=== PATIENT | male | born 1940 | race Caucasian/White ===

== ENCOUNTER 2019-10-18 07:35 | Inpatient (IN) | payer MEDICARE, MEDICAID, SELFPAY ==
[2019-10-18] VITALS (17 sets, daily range): BP systolic 120–171; BP diastolic 62–103; PULSE 68–93; RESP 16–22; TEMP 36.2–37.1; O2SAT 94–100; BMI 25.8
--- NOTE | 2019-10-18 07:53 | ED_ITS ---
Documented by User: DARLINE Gautam 10/18/19 10:52 HPI - Male Genitourinary General: Chief complaint: Urogenital-Male Stated complaint: BLOOD IN URINE Time Seen by Provider: 10/18/19 07:44 History of Present Illness: HPI Narrative: Patient is a 79-year-old male who comes to the ED with blood in the urine. Past medical history of dementia and hypertension. Patient says it has been placed over 2 days since he has been able to urinate. He currently does not complain of any abdominal pain or discomfort. He tried to urinate here in the ED and about 5 ml of pure blood came out. Patient also has testicular swelling and pain that started about a month ago. Denies any fever, chills, nausea, vomiting, abdominal pain, diarrhea or constipation. Associated symptoms: Reports hematuria; Deny dysuria, nausea or vomiting Review of Systems Const: Denies: fever(s), chills or fatigue Eyes: Denies: change in vision or eye discomfort ENMT: Denies: throat pain, odynophagia, nasal discharge or nasal congestion Card: Denies: chest pain, palpitations, edema, swelling of feet/ankles, dysp miquel on exertion or orthopnea Resp: Denies: dyspnea, productive cough or non-productive cough GI: Denies: abdominal pain, nausea, vomiting, diarrhea, constipation or hematochezia : Reports: difficulty urinating, oliguria, hematuria, testicular pain, testicular mass and scrotal swelling; Denies: flank pain or dysuria Musc: Denies: neck pain, back pain or extremity swelling Skin/Breast: Denies: rash or new lesions Neuro: Denies: headache(s), numbness in extremities or weakness in extremities PFS ED PFSH: Medical History (Updated 10/20/19 @ 00:00 by ) Dementia History of bladder cancer History of hydronephrosis Hypertension Surgical History (Updated 10/19/19 @ 11:46 by Autumn Dixon DO) History of bladder surgery radical cystoprostatectomy with ileal neobladder performed at [facility] in 2003 History of open reduction and internal fixation (ORIF) procedure L tibia History of orchiectomy, unilateral Left, 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 Social History Smoking and tobacco status: former smoker Physical Exam Const: COMMON NORMALS: alert GENERAL APPEARANCE: cooperative HENMT: COMMON NORMALS: normocephalic HEAD & SCALP: normocephalic MOUTH: Normal oral and palatal mucosa present THROAT: posterior oropharynx normal and uvula midline Eye: COMMON NORMALS: Equal, round and reactive pupils present PUPIL: Yes Equal, round and reactive pupils present Neck/C-Spine: COMMON NORMALS: supple GENERAL: Yes normal visual inspection Resp: COMMON NORMALS: normal respiratory effort, No retractions, No use of accessory muscles and clear to auscultation bilaterally AUSCULTATION: clear to auscultation bilaterally Cardio: COMMON NORMALS: regular rate, regular rhythm, S1 normal heart sound present, S2 normal heart sound present, No gallops present (Cardio), No clicks present (Cardio), No murmurs present (Cardio) and Peripheral pulses 2+ throughout RATE: regular rate RHYTHM: regular rhythm HEART SOUNDS: S1 normal heart sound present and S2 normal heart sound present PERIPHERAL PULSES: Peripheral pulses 2+ throughout GI: COMMON NORMALS: Normal to inspection, nondistended, normoactive bowel sounds present, Soft to palpation, non-tender and no masses PALPATION: Yes Soft to palpation : COMMON NORMALS: Yes no CVA tenderness BLADDER/KIDNEY EXAM: Yes no CVA tenderness SCROTUM: Yes testes descended bilaterally and Yes other (Testes were enlarged, tender and firm bilaterally.) TESTES: Yes Enlarged testicle(s) present (bilateral), Yes testicular swelling Testicular swelling laterality: bilateral and Yes testicular tenderness Testicular tenderness laterality: bilateral Back/Pelvis: COMMON NORMALS: no CVA tenderness Extremity: COMMON NORMALS: normal to inspection and no pedal edema Neuro: COMMON NORMALS: moves all extremities SENSORIUM/ORIENTATION: Yes alert SPEECH: speech normal Skin: COMMON NORMALS: no rashes or lesions noted GENERAL SKIN EXAM: no rashes or lesions noted and dry skin Course Vital Signs: Vital signs: Vital Signs Temperature 97.8 F 10/19/19 15:36 Pulse Rate 58 L 10/19/19 15:36 Respiratory Rate 16 10/19/19 15:36 Blood Pressure 134/72 10/19/19 15:36 Pulse Oximetry 95 10/19/19 15:36 MDM - Male MDM Narrative: Medical decision making narrative: I spoke with Dr. Berny bedolla bout patient case and CT findings of a possible tumor in the bladder and ultrasound of the testes showing macerated left testicle. Dr. Arrieta will be taking over care of patient and getting patient admitted. Lab Data: Attestation: I reviewed the patient's lab results. Labs: Lab Results 10/18/19 10/18/19 10/18/19 Range/Units 07:52 07:58 07:58 WBC 15.8 H (4.0-10.0) 10^3/ uL RBC 5.64 H (4.1-5.3) 10^6/u L Hgb 15.6 (11.7-16.6) g/dL Hct 47.3 (42.0-52.0) % MCV 83.9 (80-94) fL MCH 27.7 L (28.0-34.0) pg MCHC 33.0 (30.0-36.0) g/dL RDW 12.8 (12.1-15.1) % Plt Count 473 H (130-400) 10^3/c mm MPV 9.0 (7.4-10.4) fL Neut % (Auto) 66.6 % Lymph % (Auto) 19.4 % Caldwell % (Auto) 9.2 % Eos % (Auto) 2.5 % Baso % (Auto) 0.7 % Neut # (Auto) 10.5 H (1.8-7.7) 10^3/u L Lymph # (Auto) 3.1 (0.8-4.8) 10^3/u L Caldwell # (Auto) 1.5 H (0.2-0.9) 10^3/u L Eos # (Auto) 0.4 (0.0-0.8) 10^3/u L Baso # (Auto) 0.1 (0.0-0.1) 10^3/u L Nucleated RBC % (a uto) 0 % Nucleated RBCs # 0.0 /100WBC Sodium 137 (136-145) mmol/L Potassium 4.4 (3.5-5.1) mmol/L Chloride 101 (98-107) mmol/L Carbon Dioxide 22 (22-29) mmol/L Anion Gap 18.4 (5-19) BUN 29 H (8-23) mg/dL Creatinine 1.8 H (0.7-1.2) mg/dL Glucose 107 (65-115) mg/dL Calculated Osmolal ity 282 L (285-295) mOsm/k g Lactate 1.4 (0.5-2.2) mmol/L Calcium 9.0 (8.5-10.5) mg/dL Total Bilirubin 0.3 (0.15-1.2) mg/dL AST 27 (0-40) U/L ALT 37 (0-41) U/L Alkaline Phosphata se 103 (40-130) IU/L Total Protein 7.2 (6.6-8.7) g/dL Albumin 3.7 (3.5-5.2) g/dL Globulin 3.5 (1.3-4.6) g/dL Blood Type Rho(D) Type Antibody Screen 10/18/19 Range/Units 10:08 WBC (4.0-10.0) 10^3/ uL RBC (4.1-5.3) 10^6/u L Hgb (11.7-16.6) g/dL Hct (42.0-52.0) % MCV (80-94) fL MCH (28.0-34.0) pg MCHC (30.0-36.0) g/dL RDW (12.1-15.1) % Plt Count (130-400) 10^3/c mm MPV (7.4-10.4) fL Neut % (Auto) % Lymph % (Auto) % Caldwell % (Auto) % Eos % (Auto) % Baso % (Auto) % Neut # (Auto) (1.8-7.7) 10^3/u L Lymph # (Auto) (0.8-4.8) 10^3/u L Caldwell # (Auto) (0.2-0.9) 10^3/u L Eos # (Auto) (0.0-0.8) 10^3/u L Baso # (Auto) (0.0-0.1) 10^3/u L Nucleated RBC % (a uto) % Nucleated RBCs # /100WBC Sodium (136-145) mmol/L Potassium (3.5-5.1) mmol/L Chloride (98-107) mmol/L Carbon Dioxide (22-29) mmol/L Anion Gap (5-19) BUN (8-23) mg/dL Creatinine (0.7-1.2) mg/dL Glucose (65-115) mg/dL Calculated Osmolal ity (285-295) mOsm/k g Lactate (0.5-2.2) mmol/L Calcium (8.5-10.5) mg/dL Total Bilirubin (0.15-1.2) mg/dL AST (0-40) U/L ALT (0-41) U/L Alkaline Phosphata se (40-130) IU/L Total Protein (6.6-8.7) g/dL Albumin (3.5-5.2) g/dL Globulin (1.3-4.6) g/dL Blood Type O Positive Rho(D) Type Positive Antibody Screen Negative Imaging Data: CT Abd/Pel: Attestation: I personally reviewed and interpreted this imaging study as follows: Radiologist's impression: [place] [address] CT Scan Report Signed Patient: Randall Bay Unit #: [id number] : 1940 Age/Sex: 79 / M ADM Date: 10/18/19 Loc: ER Room/Bed: Attending Dr: Ordering Provider/Ordering MD: Randall Preston Date of Service: 10/18/19 Procedure(s): CT kidney stone 54102 Accession Number(s): [id number] Report Number: [id number] WS: [id number] CT kidney stone 48311 REASON FOR EXAM: Hematuria IV CONTRAST ADMINISTERED: None. TOTAL EXAM DLP: 2277.[address] scans at [facility] use at least one of these dose optimization techniques: automated exposure control; mA and/or kV adjustment per patient size (includes targeted exams where dose is matched to clinical indication); or iterative reconstruction. FINDINGS: The liver again shows hypodense lesions similar to the previous exam and appear to be benign cysts. The pancreas is normal. There is a calcification in the pancreas noted. There is previous cholecystectomy. The stomach and spleen were normal as well as the adrenal glands. The aorta showed arteriosclerotic changes. The right kidney is dilated shows densities along the periphery with irregular contents and a cyst is seen in the superior pole. Weren't sure if the lesions in the kidney or bladder represents hemorrhage or mass effect. The left kidney again shows a small cyst .. A large cyst is seen along the inf erior pole of the right kidney measures 1.99 cm. The ureter on the right is dilated down to the bladder. The bladder shows a questionable mass defect in the midportion of the bladder. There is also densities in the bladder suggesting blood. The prostate appears to be surgically absent. The rectum was normal. A hydrocele is seen in the left testicle. Coronal images suggests a mass in the urinary bladder and a calcified stone in the right kidney. CT/CT kidney stone [id number] IMPRESSION: Suspect tumor the urinary bladder. Hydronephrosis of the right kidney Stone in the right kidney Prominent cyst of the right kidney Small cyst of the left kidney Dictated By: Sav Marmolejo DO Signed By: Sav Marmolejo DO Signed Date/Time: 10/18/19908 DD/ 8 US: Attestation: I personally reviewed and interpreted this imaging study as follows: Radiologist's impression: [address] [place] [address] Ultrasound Report Signed Patient: Randall Bay Unit #: [id number] : 1940 Age/Sex: 79 / M ADM Date: 10/18/19 Loc: ER Room/Bed: Attending Dr: Ordering Provider/Ordering MD: Randall Preston Date of Service: 10/18/19 Procedure(s): US scrotum 62952 Accession Number(s): [id number] Report Number: [id number] WS: [id number] SCROTAL ULTRASOUND REASON FOR EXAM: testicular swelling and pain COMPARISON: None available. TECHNIQUE: Grayscale and duplex color Doppler ultrasound examination of the scrotum. FINDINGS: RIGHT: Right testes measures 4.6 cm x 2.4 cm x 1.7 cm. Prominent hydrocele of the right testicle. Right epididymis measures 1.5 cm x 1.5 cm x 2.3 cm. Prominent epididymal cysts. A spermatocele is seen on the right. LEFT: Left testes measures 4.6 cm x 3.2 cm x 1.9 cm. Normal flow pattern left testicle. The left testicle appears to be macerated. This suggests hematoma and trauma abscess or neoplastic changes. A large hydrocele is seen associated. There appears to be complex most likely bloody. / scrotum [id number] IMPRESSION: Macerated left testicle most likely traumatic with large hydrocele. Hydrocele the right testicle Prominent right epididymal cysts. Spermatoceles on the right. Dictated By: Sav Marmolejo DO Signed By: Sav Marmolejo DO Signed Date/Time: 10/18/19922 DD/ 5 Discharge Plan Discharge Admit Provider: Autumn Dixon Clinical Impression: Testicular abnormality, Bladder mass Condition: Stable Discharge Orders: Discharge Order (Routine); Ordered 10/19/19 Ordered By: Autumn Dixon Discharge Diet: Advance as tolerated and Usual diet Discharge Activity: Increase activity as tolerated Discharge Date/Time: 10/18/19 14:15 Coding Level of Care Code ED Business Intelligence Manager for Chg Fwd Exam Comprehensive Documented by User: Jamal Arrieta DO 10/22/19 18:14 HPI - Male Genitourinary General: Chief complaint: Urogenital-Male Stated complaint: BLOOD IN URINE Time Seen by Provider: 10/18/19 07:44 PFSH ED PFSH: Medical History (Updated 10/20/19 @ 00:00 by ) Dementia History of bladder cancer History of hydronephrosis Hypertension Surgical History (Updated 10/19/19 @ 11:46 by Autumn Dixon DO) History of bladder surgery radical cystoprostatectomy with ileal neobladder performed at [facility] in 2003 History of open reduction and internal fixation (ORIF) procedure L tibia History of orchiectomy, unilateral Left, 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 Called and discussed with Dr. Dr. Cannon he is quite familiar with the patient he came to the ER and seen the patient and we are going to admit the patient and Dr. Cannon plans to take the patient to the operating room later for the macerated testicle. We did place a Salvador in the patient and irrigated aggressively to relieve the clot which was seen on the CT. Admission orders written Dr. Dixon from the hospitalist service to be attending Lab Data: Labs: Lab Results 10/18/19 10/18/19 10/18/19 Range/Units 07:52 07:58 07:58 WBC 15.8 H (4.0-10.0) 10^3/ uL RBC 5.64 H (4.1-5.3) 10^6/u L Hgb 15.6 (11.7-16.6) g/dL Hct 47.3 (42.0-52.0) % MCV 83.9 (80-94) fL MCH 27.7 L (28.0-34.0) pg MCHC 33.0 (30.0-36.0) g/dL RDW 12.8 (12.1-15.1) % Plt Count 473 H (130-400) 10^3/c mm MPV 9.0 (7.4-10.4) fL Neut % (Auto) 66.6 % Lymph % (Auto) 19.4 % Caldwell % (Auto) 9.2 % Eos % (Auto) 2.5 % Baso % (Auto) 0.7 % Neut # (Auto) 10.5 H (1.8-7.7) 10^3/u L Lymph # (Auto) 3.1 (0.8-4.8) 10^3/u L Caldwell # (Auto) 1.5 H (0.2-0.9) 10^3/u L Eos # (Auto) 0.4 (0.0-0.8) 10^3/u L Baso # (Auto) 0.1 (0.0-0.1) 10^3/u L Nucleated RBC % (a uto) 0 % Nucleated RBCs # 0.0 /100WBC Sodium 137 (136-145) mmol/L Potassium 4.4 (3.5-5.1) mmol/L Chloride 101 (98-107) mmol/L Carbon Dioxide 22 (22-29) mmol/L Anion Gap 18.4 (5-19) BUN 29 H (8-23) mg/dL Creatinine 1.8 H (0.7-1.2) mg/dL Glucose 107 (65-115) mg/dL Calculated Osmolal ity 282 L (285-295) mOsm/k g Lactate 1.4 (0.5-2.2) mmol/L Calcium 9.0 (8.5-10.5) mg/dL Total Bilirubin 0.3 (0.15-1.2) mg/dL AST 27 (0-40) U/L ALT 37 (0-41) U/L Alkaline Phosphata se 103 (40-130) IU/L Total Protein 7.2 (6.6-8.7) g/dL Albumin 3.7 (3.5-5.2) g/dL Globulin 3.5 (1.3-4.6) g/dL Blood Type Rho(D) Type Antibody Screen 10/18/19 Range/Units 10:08 WBC (4.0-10.0) 10^3/ uL RBC (4.1-5.3) 10^6/u L Hgb (11.7-16.6) g/dL Hct (42.0-52.0) % MCV (80-94) fL MCH (28.0-34.0) pg MCHC (30.0-36.0) g/dL RDW (12.1-15.1) % Plt Count (130-400) 10^3/c mm MPV (7.4-10.4) fL Neut % (Auto) % Lymph % (Auto) % Caldwell % (Auto) % Eos % (Auto) % Baso % (Auto) % Neut # (Auto) (1.8-7.7) 10^3/u L Lymph # (Auto) (0.8-4.8) 10^3/u L Caldwell # (Auto) (0.2-0.9) 10^3/u L Eos # (Auto) (0.0-0.8) 10^3/u L Baso # (Auto) (0.0-0.1) 10^3/u L Nucleated RBC % (a uto) % Nucleated RBCs # /100WBC Sodium (136-145) mmol/L Potassium (3.5-5.1) mmol/L Chloride (98-107) mmol/L Carbon Dioxide (22-29) mmol/L Anion Gap (5-19) BUN (8-23) mg/dL Creatinine (0.7-1.2) mg/dL Glucose (65-115) mg/dL Calculated Osmolal ity (285-295) mOsm/k g Lactate (0.5-2.2) mmol/L Calcium (8.5-10.5) mg/dL Total Bilirubin (0.15-1.2) mg/dL AST (0-40) U/L ALT (0-41) U/L Alkaline Phosphata se (40-130) IU/L Total Protein (6.6-8.7) g/dL Albumin (3.5-5.2) g/dL Globulin (1.3-4.6) g/dL Blood Type O Positive Rho(D) Type Positive Antibody Screen Negative Discharge Plan Discharge Admit Provider: Autumn Dixon Clinical Impression: Testicular abnormality, Bladder mass Condition: Stable Discharge Orders: Discharge Order (Routine); Ordered 10/19/19 Ordered By: Autumn Dixon Discharge Diet: Advance as tolerated and Usual diet Discharge Activity: Increase activity as tolerated Discharge Date/Time: 10/18/19 14:15 Coding Level of Care Code ED Business Intelligence Manager for Chg Fwd Exam Comprehensive
[2019-10-18 08:06] LABS: Basophils # 0.1 10^3/uL (0.0-0.1); Basophils % 0.7 %; Eosinophils # 0.4 10^3/uL (0.0-0.8); Eosinophils % 2.5 %; Hematocrit 47.3 % (42.0-52.0); Hemoglobin 15.6 g/dL (11.7-16.6); Lymphocytes # 3.1 10^3/uL (0.8-4.8); Lymphocytes % 19.4 %; Mean Corpuscular Hemoglobin 27.7 pg (28.0-34.0); Mean Corpuscular Volume 83.9 fL (80-94); Monocytes # 1.5 10^3/uL (0.2-0.9); Monocytes % 9.2 %; Neutrophils # 10.5 10^3/uL (1.8-7.7); Neutrophils % 66.6 %; Nucleated Red Blood Cells % 0 %; Platelet Count 473 10^3/cmm (130-400); Red Blood Count 5.64 10^6/uL (4.1-5.3); Red Cell Distribution Width 12.8 % (12.1-15.1); White Blood Count 15.8 10^3/uL (4.0-10.0)
--- NOTE | 2019-10-18 08:15 | US_ITS ---
WS: [id number] SCROTAL ULTRASOUND REASON FOR EXAM: testicular swelling and pain COMPARISON: None available. TECHNIQUE: Grayscale and duplex color Doppler ultrasound examination of the scrotum. FINDINGS: RIGHT: Right testes measures 4.6 cm x 2.4 cm x 1.7 cm. Prominent hydrocele of the right testicle. Right epididymis measures 1.5 cm x 1.5 cm x 2.3 cm. Prominent epididymal cysts. A spermatocele is seen on the right. LEFT: Left testes measures 4.6 cm x 3.2 cm x 1.9 cm. Normal flow pattern left testicle. The left testicle a ppears to be macerated. This suggests hematoma and trauma abscess or neoplastic changes. A large hydr ocele is seen associated. There appears to be complex most likely bloody. US/US scrotum [id number] IMPRESSION: Macerated left testicle most likely traumatic with large hydrocele. Hydrocele the right testicle Prominent right epididymal cysts. Spermatoceles on the right.
[2019-10-18 08:23] LABS: Alanine Aminotransferase 37 U/L (0-41); Albumin Level 3.7 g/dL (3.5-5.2); Alkaline Phosphatase 103 IU/L (40-130); Anion Gap 18.4 (5-19); Aspartate Amino Transferase 27 U/L (0-40); Blood Urea Nitrogen 29 mg/dL (8-23); Carbon Dioxide 22 mmol/L (22-29); Chloride 101 mmol/L (98-107); Globulin 3.5 g/dL (1.3-4.6); Glucose 107 mg/dL (65-115); Osmolality Calculated 282 mOsm/kg (285-295); Potassium 4.4 mmol/L (3.5-5.1); Sodium 137 mmol/L (136-145); Total Bilirubin 0.3 mg/dL (0.15-1.2); Total Protein 7.2 g/dL (6.6-8.7)
--- NOTE | 2019-10-18 08:33 | CT_ITS ---
WS: [id number] CT kidney stone [id number] REASON FOR EXAM: Hematuria IV CONTRAST ADMINISTERED: None. TOTAL EXAM DLP: 2277.[address] scans at [facility] use at least one of these dose optimization techniques: automat ed exposure control; mA and/or kV adjustment per patient size (includes targeted exams where dose is matched to clinical indication); or iterative reconstruction. FINDINGS: The liver again shows hypodense lesions similar to the previous exam and appear to be benig n cysts. The pancreas is normal. There is a calcification in the pancreas noted. There is previous cholecystectomy. The stomach and spleen were normal as well as the adrenal glands. The aorta showed arteriosclerotic changes. The right kidney is dilated shows densities along the periphery with irregular contents and a cyst is seen in the superior pole. Weren't sure if the lesions in the kidney or bladder represents hemorrhag e or mass effect. The left kidney again shows a small cyst .. A large cyst is seen along the inferior pole of the right kidney measures 1.99 cm. The ureter on the right is dilated down to the bladder. The bladder shows a questionable mass defect in the midportion of the bladder. There is also densities in the bladder suggesting blood. The prostate appears to be surgically absent. The rectum was normal. A hydrocele is seen in the left testicle. Coronal images suggests a mass in the urinary bladder and a calcified stone in the right kidney. CT/CT kidney stone [id number] IMPRESSION: Suspect tumor the urinary bladder. Hydronephrosis of the right kidney Stone in the right kidney Prominent cyst of the right kidney Small cyst of the left kidney
--- NOTE | 2019-10-18 09:24 | PC.NURSE ---
US COMPLETED PATIENT TOLERATED WELL
[2019-10-18] MEDS: sodium chloride 0.9% 500 ML IV (09:32)
[2019-10-18] MEDS: morphine 4 mg/mL SDV 1 mL 2 MG IVP (09:42)
[2019-10-18] MEDS: ondansetron 2 mg/ML SDV 2 mL 4 MG IVP (09:43)
[2019-10-18] MEDS: piperacillin-tazobactam 3.375 GM in sodium chloride 0.9% (plus) 50 ML IV ×2 (10:01→16:30)
[2019-10-18 10:10] LABS: Lactate (Lactic Acid level) 1.4 mmol/L (0.5-2.2)
[2019-10-18] MEDS: LORazepam 2 mg/mL INJ 1 mL 0.5 MG IVP (11:29)
--- NOTE | 2019-10-18 11:32 | P.HP_ITS ---
Providers/Chief Complaint Admitting Physician: Autumn Dixon DO Chief Complaint: BLOOD IN URINE History of Present Illness Randall Bay is a 79 year old male with a past medical history of bladder cancer and Alzheimer's dementia that presented to the emergency department for hematuria. Patient is a long-term correction resident at [facility]. He was recently started on Bactrim twice daily on 10/15/2019 due to concern for urinary tract infection. He has been experiencing scrotal edema for a period of time, yesterday and continuing into this morning patient was noted to have significant hematuria. Brought into the ER for further evaluation and treatment. Difficult to obtain full HPI from patient due to his underlying dementia. Patient denies any chest pain, no cough or shortness of breath, no nausea or vomiting. Reports abdominal pain, scrotal pain and hematuria. Patient was seen and evaluated in the emergency department noted to have scrotal edema and significant hematuria. Urology was consulted for further evaluation and patient was kept n.p.o. Review of Systems Const: Denies: fever(s) or chills Eyes: Denies: change in vision ENMT: Denies: nasal congestion Card: Denies: chest pain, palpitations or edema Resp: Denies: dyspnea, productive cough or hemoptysis GI: Denies: abdominal pain, nausea, vomiting, diarrhea, constipation, hematochezia or melena : Reports: difficulty urinating, dysuria, hematuria and scrotal swelling Musc: Denies: extremity pain or muscle cramps Skin/Breast: Denies: rash or new lesions Neuro: Denies: headache(s) or dizziness Psych: Denies: anxiety or depression Endo: Denies: hot flashes Chuckie/Lymph: Reports: easy bleeding; Denies: easy bruising Medications/Allergies Home Medications Medication Instructions Recorded Confirmed Last Taken Type acetaminophen See Rx Instructions .ROUTE .COMPLEX 10/18/19 10/18/19 10/18/19 02:45 History 650 mg aspirin [Aspir-81] 81 mg PO DAILY 10/18/19 10/18/19 10/18/19 07:01 History donepezil 10 mg PO BEDTIME 10/18/19 10/18/19 10/17/19 History furosemide [Lasix] 20 mg PO DAILY 10/18/19 10/18/19 10/18/19 07:01 History memantine 10 mg PO BID 10/18/19 10/18/19 10/18/19 07:01 History metoprolol tartrate 12.5 mg PO BID 10/18/19 10/18/19 10/18/19 07:01 History sulfamethoxazole-trimethoprim 1 tab PO BID 10/18/19 10/18/19 10/18/19 07:01 History [Bactrim DS] trazodone 50 mg PO BEDTIME 10/18/19 10/18/19 10/17/19 History Allergies Allergy/AdvReac Type Severity Reaction Status Date / Time No Known Allergies Allergy Verified 10/18/19 07:50 PFSH Acute PFSH: Medical History Dementia History of bladder cancer History of hydronephrosis Hypertension Surgical History History of bladder surgery From prior documentation from 2013 reported history of bladder removal and reconstruction History of open reduction and internal fixation (ORIF) procedure L tibia Social History Smoking and tobacco status: former smoker Supplemental PFSH Information: unable to obtain from patient due to underlying dementia Vitals/I&O/Wt Last Vital Signs Temp 98.2 F 10/18/19 07:42 Pulse 72 10/18/19 07:42 Resp 18 10/18/19 09:42 BP 139/103 10/18/19 07:42 Pulse Ox 97 10/18/19 07:42 Weight last 48 hrs Weight 77.111 kg Physical Exam Const: COMMON NORMALS: alert ORIENTATION/CONSCIOUSNESS: Yes awake OTHER: underlying dementia, in obvious discomfort HENMT: COMMON NORMALS: normocephalic and atraumatic HEAD & SCALP: normocephalic and atraumatic Eye: COMMON NORMALS: Equal, round and reactive pupils present PUPIL: Yes Equal, round and reactive pupils present Neck/C-Spine: COMMON NORMALS: supple GENERAL: Yes normal visual inspection Resp: COMMON NORMALS: normal respiratory effort and clear to auscultation bilaterally EFFORT & INSPECTION: Yes able to speak in complete sentences AUSCULTATION: clear to auscultation bilaterally, no rhonchi and no wheezes Cardio: COMMON NORMALS: regular rate, regular rhythm and No murmurs present (Cardio) RATE: regular rate RHYTHM: regular rhythm GI: COMMON NORMALS: Soft to palpation INSPECTION: No abdominal distension AUSCULTATION: Yes normoactive bowel sounds PALPATION: Yes Tenderness to palpation present (GI) (suprapubic tenderness) : COMMON NORMALS: Yes no CVA tenderness BLADDER/KIDNEY EXAM: Yes no CVA tenderness OTHER: Active bleeding from urethra, scrotal edema and mass in the L scrotum, limited exam due to patient experiencing pain Extremity: COMMON NORMALS: no clubbing, cyanosis or edema and no calf tenderness Neuro: COMMON NORMALS: CN's II-XII intact bilaterally, moves all extremities and no focal motor deficits SENSORIUM/ORIENTATION: Yes alert SPEECH: speech normal OTHER: underlying confusion secondary to dementia Psych: OTHER: underlying confusion due to dementia Skin: OTHER: Scrotal edema and maceration left greater than right Data : 10/18/19 07:58 10/18/19 07:58 Micro: Microbiology 10/18/19 07:58 Blood Culture - Preliminary Blood SPECIMEN COLLECTED 10/18/19 07:52 Blood Culture - Preliminary Blood SPECIMEN COLLECTED US: I personally reviewed and interpreted this imaging study as follows: Radiologist's impression: Scrotal ultrasound: FINDINGS: RIGHT: Right testes measures 4.6 cm x 2.4 cm x 1.7 cm. Prominent hydrocele of the right testicle. Right epididymis measures 1.5 cm x 1.5 cm x 2.3 cm. Prominent epididymal cysts. A spermatocele is seen on the right. LEFT: Left testes measures 4.6 cm x 3.2 cm x 1.9 cm. Normal flow pattern left sue ticle. The left testicle appears to be macerated. This suggests hematoma and trauma abscess or neoplastic changes. A large hydrocele is seen associated. There appears to be complex most likely bloody. US/US scrotum [id number] IMPRESSION: Macerated left testicle most likely traumatic with large hydrocele. Hydrocele the right testicle Prominent right epididymal cysts. Spermatoceles on the right. Other CT: I personally reviewed and interpreted this imaging study as follows: Radiologist's impression: CT Kidney Stone: FINDINGS: The liver again shows hypodense lesions similar to the previous exam and appear to be benign cysts. The pancreas is normal. There is a calcification in the pancreas noted. There is previous cholecystectomy. The stomach and spleen were normal as well as the adrenal glands. The aorta showed arteriosclerotic changes. The right kidney is dilated shows densities along the periphery with irregular contents and a cyst is seen in the superior pole. Weren't sure if the lesions in the kidney or bladder represents hemorrhage or mass effect. The left kidney again shows a small cyst .. A large cyst is seen along the inferior pole of the right kidney measures 1.99 cm. The ureter on the right is dilated down to the bladder. The bladder shows a questionable mass defect in the midportion of the bladder. There is also densities in the bladder suggesting blood. The prostate appears to be surgically absent. The rectum was normal. A hydrocele is seen in the left testicle. Coronal images suggests a mass in the urinary bladder and a calcified stone in the right kidney. CT/CT kidney stone [id number] IMPRESSION: Suspect tumor the urinary bladder. Hydronephrosis of the right kidney Stone in the right kidney Prominent cyst of the right kidney Small cyst of the left kidney A&P Assessment and plan (1) Gross hematuria: Gross hematuria with concern for mass in the bladder. Patient has a history of bladder cancer with bladder reconstruction in the past. Dr. Cannon, urologist consulted. Will follow up with recommendations. Will appreciate assistance in patient's care. Patient to remain n.p.o. for the possibility of surgical intervention today for this and testicular lesion Salvador catheter placed shortly after my evaluation in the emergency department with reported immediate void of 800mL of urine Hold aspirin Patient has had a significant amount of bleeding while in the emergency department. Will check serial H&H every 6 hours, type and screen performed in the ED. Transfuse if indicated Status: Acute (2) Testicular abnormality: Patient does have some maceration to the left testicle, limited exam due to patient's pain and underlying confusion with his dementia CT imaging shows suspected tumor of the urinary bladder as well as US changes to the L testicle as reported above. No reported trauma, [facility] reports scrotal edema has been present for an extended period of time. Concern for lesion of the left testicle, Dr. Cannon to take patient to the OR today Covered with broad spectrum antibiotics in the ED, Vanc and Zosyn, will continue at this time pending urology evaluation Status: Acute (3) Bladder mass: Patient has bladder mass identified on CT scan. Patient does have a history of bladder cancer with a history of bladder revision many years ago. Follow-up with urology recommendations Status: Acute (4) History of bladder cancer: With finding of bladder mass reports the patient had surgery approximately 17 years ago Status: Acute (5) UTI (urinary tract infection): Previously diagnosed with UTI at the half-way [facility] and started on Bactrim on 10/15/2019. Continue with IV antibiotics for empiric treatment as noted above. Will discuss with correction to determine if the urine culture was performed at that time Status: Acute (6) Dementia: Patient is somewhat confused in the emergency department, however remains communicative. Status: Acute (7) Hypertension: Currently on Lasix 20 mg daily, metoprolol 12.5 mg twice daily Status: Acute Additional A&P Information Right-sided hydronephrosis: Appreciate urology recommendations and assistance in patient's care. Continue to monitor renal function closely Patient appears to be dehydrated, will give very gentle IV fluids with close monitoring of intake and output and renal function. DVT prophylaxis: SCDs, no pharmacologic prophylaxis due to concern for significant hematuria Diet: N.p.o. for anticipated surgery CODE STATUS: DNR/DNI, this is documented on correction paperwork and verbally confirmed with patient's spouse Renetta Bay on 10/18/19 Attestations Medical Necessity Statement*: Patient requires hospitalization due to gross hematuria with bladder mass and scrotal edema and L scrotal swelling. Expected stay greater than 2 midnights Coding Level of Care Code Acute Want Ad Clerk for Chg Fwd Exam Comprehensive Diagnoses Gross hematuria R31.0 Testicular abnormality N50.9 Bladder mass N32.89 History of bladder cancer Z85.51 UTI (urinary tract infection) N39.0 Dementia F03.90 Hypertension I10
--- NOTE | 2019-10-18 12:52 | PC.NURSE ---
2 HOURS OF MANUAL IRRIGATION FOR 2 HOURS WITH 2 LITERS OF STERILE WATER TILL URINE WATER WAS CLEAR OF CLOTS
--- NOTE | 2019-10-18 13:26 | ECG_ITS ---
Measurements Intervals [place] Rate: 89 P: 82 WY: 188 QRS: -63 QRSD: 136 T: 38 QT: 366 QTc: 446 SINUS RHYTHM RIGHT BUNDLE BRANCH BLOCK [120+ ms QRS DURATION, UPRIGHT V1, 40+ ms S IN I/aVL/V4/V5/V6] LEFT ANTERIOR FASCICULAR BLOCK [QRS AXIS <= -45, QR IN I, RS IN II] POSSIBLE SEPTAL MYOCARDIAL INFARCTION [30 ms Q WAVE IN V1/V2], OF INDETERMINATE AGE No previous ECG available for comparison Electronically Signed On 10-18-2019 20:36:02 CDT by Taj Chavez M.D. [email or web address]
[2019-10-18] MEDS: sodium chloride 0.9% 1,000 ML 50 ML IV ×2 (14:27→21:33)
[2019-10-18 15:00] LABS: Bilirubin Urine Neg (NEGATIVE); Blood Urine 3+ (Negative); Glucose Urine UA Norm (Normal); Ketones Urine Negative (Negative); Nitrate Urine Negative (Negative); Protein Urine 2+ (Negative); Urine Appearance Turbid (CLEAR); Urine Color Brown (Yellow); Urobilinogen Urine Norm (Negative); pH Urine 5 (5-7)
[2019-10-18 15:01] LABS: Leukocyte Esterase Urine 2+ (Negative); RBC Urine 15-25 /hpf (0-2)
[2019-10-18 15:02] LABS: Add Urine Culture? Yes; Amorphous Sediment Urine 2+; Bacteria Urine 3+
--- NOTE | 2019-10-18 15:42 | P.CONIM_ITS ---
Providers/Reason For Consult Consulting Physican/Specialty*: Urology/Cannon Reason for Consult*: Hematuria/left hemiscrotal mass Attending Physician: Autumn Dixon DO History of Present Illness History of Present Illness Randall Bay is a 79 year old male well-known to me for history of bladder cancer remotely and status post radical cystoprostatectomy with ileal neobladder performed here at [facility] in 2003. He had a huge volume of bladder cancer but there was no evidence of metastatic process. Did very well well with the ileal neobladder without any significant problem for years. He was last seen in my office in January 2019 for new onset of gross hematuria without evidence of renal colic. He had been documented as having a urinary tract infection and had been treated least once for that. A cystoscopy at that time showed generalized irritation of the neobladder mucosa with some leukenoid type changes consistent with chronic infection and likely over distention of the neobladder. Was placed on antibiotics and was to follow- up with a renal ultrasound for evaluation of his upper urinary tracts. He had an appointment scheduled on 02/18/2019 but did not keep that appointment. This hospital stay was initiated when he presented with gross hematuria and the left hemiscrotal swelling. Lives in a skilled nursing. I spoke to the nursing supervisory training specialist. About a week ago he was noticed to have significant change in his usual activity. He is a resident that does a lot of walking in the halls at the skilled nursing and about that time he started decreasing his activity significantly. No fever. No chills. He started complaining of increasing discomfort in the left hemiscrotum and swelling and that has continued through today. A day or 2 ago the nursing staff noted some green discharge from his penis. He was placed on Bactrim. This morning he was noted to have some gross hematuria on his depends. Was transferred to [facility] for further evaluation and treatment. CT SCAN was performed that showed fresh clot in the bladder. Neobladder configuration otherwise looked pretty normal. There was some concern for possible bladder mass but that may well have been just the neobladder configuration or clot. Significant right hydronephrosis was noted. There was some hyperdense component to the hydronephrosis on the right up in the kidney. Whether this was fresh blood or possibly low density calcification is unclear. The neobladder was distended and there was a lot of sediment in the posterior aspect of the bladder. I do not see a distinct mass and I think much of what is noted and there is actually fresh clot. The left hemiscrotum was grossly abnormal on CT scan but the characterization was difficult to obtain. SCROTAL ULTRASOUND was then performed that showed essentially normal right hemiscrotum, what appeared to be a very complex mass off of or potentially part of the left testicle of unclear etiology. Could be old clot, could be potentially a traumatized testicle or possibly infectious process. It is clear though that symptomatically this is making a difference with his baseline functioning status. LABORATORY work-up showed a white count of 15.8, hemoglobin 15.6 creatinine of 1.8 up from January last year of 1.3. UA showed 15-25 RBCs, 5-10 white cells, 3+ bacteria, and yeast. PHYSICAL EXAM: Enlarged left hemiscrotum, very tender to palpation, no crepitus, skin breakdown, drainage In the emergency department prior to transfer to the floor he had been aggressively irrigated with a 20 [place] three-way catheter and a lot of clot was removed. Most of it appeared to be old clot. I was consulted for further evaluation. Review of Systems Const: Reports: malaise; Denies: fever(s) or change in appetite Eyes: Denies: change in vision ENMT: Denies: odynophagia Card: Denies: chest pain or palpitations Resp: Denies: dyspnea, productive cough or wheezing GI: Denies: abdominal pain, nausea or vomiting : Reports: hematuria, penile discharge (Per nursing staff), scrotal swelling and other (Genital pain); Denies: flank pain Musc: Denies: joint redness or joint warmth Skin/Breast: Denies: rash or erythema Neuro: Reports: confusion and behavioral changes; Denies: Slurred speech present Psych: Reports: memory loss; Denies: anxiety Endo: Denies: polydipsia or flushing Chuckie/Lymph: Denies: easy bruising or enlarged lymph nodes All/Imm: Denies: urticaria Meds/Allergies Home Medications and Allergies Home Medications Medication Instructions Recorded Confirmed Last Taken Type acetaminophen See Rx Instructions .ROUTE .COMPLEX 10/18/19 10/18/19 10/18/19 02:45 History 650 mg aspirin [Aspir-81] 81 mg PO DAILY 10/18/19 10/18/19 10/18/19 07:01 History donepezil 10 mg PO BEDTIME 10/18/19 10/18/19 10/17/19 History furosemide [Lasix] 20 mg PO DAILY 10/18/19 10/18/19 10/18/19 07:01 History memantine 10 mg PO BID 10/18/19 10/18/19 10/18/19 07:01 History metoprolol tartrate 12.5 mg PO BID 10/18/19 10/18/19 10/18/19 07:01 History sulfamethoxazole-trimethoprim 1 tab PO BID 10/18/19 10/18/19 10/18/19 07:01 History [Bactrim DS] trazodone 50 mg PO BEDTIME 10/18/19 10/18/19 10/17/19 History Allergies Allergy/AdvReac Type Severity Reaction Status Date / Time No Known Allergies Allergy Verified 10/18/19 07:50 morphine Allergy rash Uncoded 10/18/19 16:24 Current Medications Current Medications Generic Name Dose Route Start Last Admin Trade Name Freq PRN Reason Stop Dose Admin Sodium Chloride 1,000 mls @ 50 mls/hr 10/18/19 14:30 10/18/19 14:27 Sodium Chloride 0.9% IV 50 mls/hr .Q20H FERNANDO Administration PFSH Acute PFSH: Medical History Dementia History of bladder cancer History of hydronephrosis Hypertension Surgical History History of bladder surgery From prior documentation from 2013 reported history of bladder removal and reconstruction History of open reduction and internal fixation (ORIF) procedure L tibia Social History Smoking and tobacco status: former smoker Vitals/I&O/Wt Last Vital Signs Temp 97.5 F L 10/18/19 15:31 Pulse 76 10/18/19 15:31 Resp 18 10/18/19 15:31 BP 122/62 10/18/19 15:31 Pulse Ox 95 10/18/19 15:31 Weight last 48 hrs Weight 170 lb Physical Exam Const: COMMON NORMALS: no acute distress, alert and well nourished GENERAL APPEARANCE: well kempt and well developed HENMT: COMMON NORMALS: normocephalic and atraumatic HEAD & SCALP: normocephalic and atraumatic Eye: COMMON NORMALS: conjunctivae normal and no scleral icterus CONJUNCTIVA: Yes conjunctivae normal Neck/C-Spine: COMMON NORMALS: full ROM GENERAL: Yes normal visual inspection Lymph: LYMPHATIC: No no lymphadenopathy noted and No no lymphedema noted Resp: COMMON NORMALS: normal respiratory effort EFFORT & INSPECTION: No labored and No Actively coughing : COMMON NORMALS: No Testes normal BLADDER/KIDNEY EXAM: Yes catheter in place MEATUS: meatus normal SCROTUM: No inguinal hernia, Yes Scrotal tenderness present, No erythematous, No ecchymosis and Yes scrotal swelling OTHER: Severe left hemiscrotal swelling with inability to distinguish intrascrotal contents. Very tender. No crepitus. No fluctuance no bruising. Extremity: COMMON NORMALS: no clubbing, cyanosis or edema Neuro: COMMON NORMALS: no focal motor deficits SENSORIUM/ORIENTATION: Yes alert Psych: APPEARANCE: Yes grossly normal and Yes well kempt ATTITUDE: Yes calm THOUGHT CONTENT: No Normal thought content present MEMORY/COGNITION: No memory grossly intact, Yes memory grossly impaired and Yes cognition grossly intact Skin: COMMON NORMALS: no rashes or lesions noted and no jaundice GENERAL SKIN EXAM: no rashes or lesions noted Urinary Catheter Management^: 3-way Urethral CBI: Cath Placed During This Visit: yes Reason for Continuing Indwelling Catheter: Acute Urinary Retention or Obstruction Urinary Catheter Date of Insertion: 10/18/19 Urinary Catheter Time of Insertion: 12:47 Data Micro: Micro: Microbiology 10/18/19 07:58 Blood Culture - Pr eliminary Blood SPECIMEN [facility] 10/18/19 07:52 Blood Culture - Pr eliminary Blood SPECIMEN [facility] A&P Assessment and plan (1) Scrotal mass: Tender, painful, continued swelling of the left hemiscrotum of unclear etiology. Possible traumatic testicular injury. Could not rule out scrotal abscess. Recommended urgent evaluation in the operating room with scrotal exploration, possible left orchiectomy. I reviewed over the phone with his who has given informed consent to proceed. Status: Acute (2) Gross hematuria: Acute gross hematuria with clots irrigated from the bladder. Previous similar episode with cystoscopy January 2019 showing chronic inflammatory changes but no neoplastic process. Urine has cleared after aggressive manual irrigation and catheter placement. Status: Acute (3) History of bladder cancer: Status post radical cystoprostatectomy with ileal neobladder in 2003 and good long-term response. More recently with UTIs, increased PVR, and difficult management due to increasing dementia. Status: Acute (4) UTI (urinary tract infection): Status: Acute Qualifiers: Urinary tract infection type: acute cystitis (5) Hydronephrosis of right kidney: [place] to be secondary to poor bladder emptying. Status: Acute Consult Attestations Medical Necessity Statement: Clot retention, increasing tender left hemiscrotum with increasing size mass of unclear etiology. Operating room tonight with scrotal exploration possible orchiectomy. Coding Level of Care Code Acute Telegraph Dispatcher for Chg Fwd Diagnoses Scrotal mass N50.89 Gross hematuria R31.0 History of bladder cancer Z85.51 UTI (urinary tract infection) N39.0 Urinary tract infection type: acute cystitis Hydronephrosis of right kidney N13.30
--- NOTE | 2019-10-18 16:39 | ANES.PREANE2 ---
Pre-Anesthetic Assessment Pre-Anesthetic Assessment: Height/Weight: Height 1.73 m Weight 77.111 kg Temp Pulse Resp BP Pulse Ox 97.5 F L 76 18 122/62 95 10/18/19 15:31 10/18/19 15:31 10/18/19 15:31 10/18/19 15:31 10/18/19 15:31 Social: Social History: Tobacco (quit) and No alcohol Exam: Pre-Anes Outpt Exam: alert, clear to auscultation bilaterally and regular rate & rhythm Additional Exam Findings (including area of procedure): pt has dementia Airway: Submandibular: WNL Cervical ROM: Other (very limited) MP: 2 Dentition: False (upper) and Other (teeth poor) History/ROS: No significant history except as noted Pulmonary: Pulmonary: None reported CV/HEM: CV/HEM: HTN : Comments: h/o bladder ca Hepatic: Hepatic: None reported GI: GI: None reported Metabolic: Metabolic: None reported Musc/skel: Musc/skel: OA/DJD Neuropsych: Neuropsych: Dementia Anesthetic Plan: ASA status: 3 Anesthesia: Anesthesia Evaluation and General Risk of > 500 ml blood loss (7ml/kg in children): No Meds/Allergies Current Medications: Current Medications Generic Name Dose Route Start Last Admin Trade Name Freq PRN Reason Stop Dose Admin Sodium Chloride 1,000 mls @ 50 ml s/hr 10/18/19 14:30 10/18/19 14:27 Sodium Chloride 0.9% IV 50 mls/hr .Q20H FERNANDO Administration PFSH Anesthesia PFSH: Medical History Dementia History of bladder cancer History of hydronephrosis Hypertension Surgical History History of bladder surgery From prior documentation from 2013 reported history of bladder removal and reconstruction History of open reduction and internal fixation (ORIF) procedure L tibia Social History Smoking and tobacco status: former smoker Supplemental PFSH Information: unable to obtain from patient due to underlying dementia Data Anesthesia CBC & Chem 7: 10/18/19 07:58 10/18/19 07:58 Other Labs: Laboratory Results - last 48 hr 0610/18/19 10/18/19 07:52 07:58 07:58 WBC 15.8 H RBC 5.64 H Hgb 15.6 Hct 47.3 MCV 83.9 MCH 27.7 L MCHC 33.0 RDW 12.8 Plt Count 473 H MPV 9.0 Neut % (Auto) 66.6 Lymph % (Auto) 19.4 [place] % (Auto) 9.2 Eos % (Auto) 2.5 Baso % (Auto) 0.7 Neut # (Auto) 10.5 H Lymph # (Auto) 3.1 [place] # (Auto) 1.5 H Eos # (Auto) 0.4 Baso # (Auto) 0.1 Nucleated RBC % (auto) 0 Nucleated RBCs # 0.0 Sodium 137 Potassium 4.4 Chloride 101 Carbon Dioxide 22 Anion Gap 18.4 BUN 29 H Creatinine 1.8 H Glucose 107 Calculated Osmolality 282 L Lactate 1.4 Calcium 9.0 Total Bilirubin 0.3 AST 27 ALT 37 Alkaline Phosphatase 103 Total Protein 7.2 Albumin 3.7 Globulin 3.5 Urine Color Urine Appearance Urine pH Ur Specific [place] Urine Protein Urine Glucose (UA) Urine Ketones Urine Blood Urine Nitrate Urine Bilirubin Urine Urobilinogen Ur Leukocyte Esterase Urine RBC Urine WBC Ur Squamous Epith Cells Amorphous Sediment Urine Bacteria Urine Yeast Blood Type Rho(D) Type Antibody Screen 10/18/19 10/18/19 10:08 14:35 WBC RBC Hgb Hct MCV MCH MCHC RDW Plt Count MPV Neut % (Auto) Lymph % (Auto) [place] % (Auto) Eos % (Auto) Baso % (Auto) Neut # (Auto) Lymph # (Auto) [place] # (Auto) Eos # (Auto) Baso # (Auto) Nucleated RBC % (auto) Nucleated RBCs # Sodium Potassium Chloride Carbon Dioxide Anion Gap BUN Creatinine Glucose Calculated Osmolality Lactate Calcium Total Bilirubin AST ALT Alkaline Phosphatase Total Protein Albumin Globulin Urine Color Brown Urine Appearance Turbid Urine pH 5 Ur Specific [place] 1.020 Urine Protein 2+ H Urine Glucose (UA) Norm Urine Ketones Negative Urine Blood 3+ H Urine Nitrate Negative Urine Bilirubin Neg Urine Urobilinogen Norm Ur Leukocyte Esterase 2+ H Urine RBC 15-25 H Urine WBC 5-10 H Ur Squamous Epith Cells None Amorphous Sediment 2+ Urine Bacteria 3+ H Urine Yeast 1+ H Blood Type O Positive Rho(D) Type Positive Antibody Screen Negative Micro: Microbiology 10/18/19 07:58 Blood Culture - Preliminary Blood SPECIMEN COLLECTED 10/18/19 07:52 Blood Culture - Preliminary Blood SPECIMEN COLLECTED Cardiac Studies: No Data to Display
--- NOTE | 2019-10-18 16:43 | PC.NURSE ---
630 ML OF BLOODY URINE OUT PER [facility]
[2019-10-18 16:45] LABS: Hematocrit 44.4 % (42.0-52.0); Hemoglobin 14.5 g/dL (11.7-16.6)
--- NOTE | 2019-10-18 17:01 | PC.OT ---
OT evaluation completed. OT treatment not indicated at this time.
--- NOTE | 2019-10-18 18:25 | PM.OP ---
Operative Report Date of procedure: October 18, 2019 Pre-op Diagnosis: Tender left hemiscrotal mass Post-op diagnosis: same Post-op Diagnosis: Likely ruptured left testicle Procedure Done: Left orchiectomy, scrotal approach Specimens removed/disposition: Left testicle with tunica vaginalis Pathology: Left testicle with surrounding tunica vaginalis Surgeon: Kassandra Anesthesia: General Estimated blood loss: <25 cc Urine output: Not measured Complications: None Findings: 1. No evidence of loly-tunica vaginalis inflammatory changes on entry into the left hemiscrotum 2. Left orchiectomy was performed extra tunica vaginalis. 3. Likely traumatic rupture of the left testicle with bivalving of the tunica vaginalis on the back table. Appeared to be old blood within the tunica vaginalis. Final path pending Condition: stable Disposition: PACU Brief History: Mr. Bay is a 79-year-old white male who is status post remote cystectomy with ileal neobladder. Presented today with gross hematuria. Was also complaining of approximately 1 week of increasing left hemiscrotal tenderness and size. Only history of any concern was that he apparently had a fall per his . No bruising or skin changes consistent with traumatic injury to the skin. No evidence of an active infection on the skin. Ultrasound showed a very atypical heterogeneous peritesticular accumulation felt consistent possibly with either testicular rupture with hematoma or possibly an infectious collection. White count was elevated. It was recommended that he go to the operating room urgently/emergently for scrotal exploration and likely orchiectomy. Informed consent was taken over the phone with his . Procedure: After emergent evaluation examination and obtaining of informed consent he was taken to the operating suite on 10/18/2019 where general anesthesia was administered without difficulty after appropriate timeout was performed, SCDs confirmed to be functioning, preoperative antibiotics administered, beta-flo protocol confirmed. Left and draped in supine position pain careful attention to voiding pressure points. A midline median raphae incision was made over the left hemiscrotum down into the left hemiscrotum through the dartos layer. There was no significant inflammatory changes outside of the tunica vaginalis. It was felt that this likely represented either mass or testicular rupture either which the testicle needed to be removed. The tunica vaginalis was dissected from its attachments in the left hemiscrotum down to the spermatic cord which was taken in several bites between clamps and doubly ligated. Specimen was then delivered. Hemostasis was visually confirmed and the wound was copiously irrigated before closing the wound in 2 layers utilizing 3-0 Vicryl dartos layer and 4-0 Vicryl subcuticular layer with surgical skin glue applied to the skin. Fluff dressings with scrotal support applied. The specimen was bivalved at the back table and it showed caban-colored fluid draining and what appeared to be old blood clot or seminiferous tubule type material within the tunica vaginalis. The specimen was sent on formalin to the lab for further evaluation. Tolerated the procedure well without complications. A 20 [place] Salvador catheter was placed in his neobladder with return of pink-colored urine. Awakened in the operating room and returned to the cover him in stable condition. PLANS: 1. Continue Salvador catheter 2. Observe overnight. Manually irrigate bladder as needed. Discharge planning based on course over the next day.
--- NOTE | 2019-10-18 18:29 | SUR.PHASEI ---
1820 patient to pacu at this time from or. rr even and unlabored. placed on simple mask at 8l, spo2 96%. flores cath in place,draining dark, ysabel colored urine.
--- NOTE | 2019-10-18 19:03 | SUR.PHASEI ---
1851 PATIENT TO MED SURG. ALERT PER NORMAL. DENIES PAIN OR NAUSEA, TOLERATING ICE CHIPS. [facility] CATH IN PLACE.
--- NOTE | 2019-10-18 19:06 | PC.NURSE ---
POSTOP NOTE Just received from OR. Is alert and confused. Denies pain or discomfort. Scrotal dressing/support in place and is clean & dry. O2 in place at 2l per NC. Salvador intact and draining very dark ysabel urine. No blood clots noted. SCD's to janet [place]. IV patent with fluids at 50ml/hr rate. Will have 1:1 sitter at bedside
[2019-10-18] MEDS: trazodone 50 mg Tablet PO (20:12)
[2019-10-18] MEDS: donepezil 5 MG Tablet 10 MG PO (20:12)
[2019-10-18 20:14] LABS: Hematocrit 44.6 % (42.0-52.0); Hemoglobin 14.7 g/dL (11.7-16.6)
[2019-10-19] VITALS: BP 121/67; PULSE 73; RESP 18; TEMP 36.7; O2SAT 100
[2019-10-19] MEDS: piperacillin-tazobactam 3.375 GM in sodium chloride 0.9% (plus) 50 ML IV ×2 (00:11→08:12)
[2019-10-19 01:33] LABS: Hematocrit 42.1 % (42.0-52.0); Hemoglobin 13.6 g/dL (11.7-16.6)
[2019-10-19 04:00] VITALS: BP 131/71; PULSE 97; RESP 20; TEMP 36.9; O2SAT 92
[2019-10-19 05:25] LABS: Basophils # 0.1 10^3/uL (0.0-0.1); Basophils % 0.6 %; Eosinophils # 0.4 10^3/uL (0.0-0.8); Hematocrit 40.5 % (42.0-52.0); Hemoglobin 13.4 g/dL (11.7-16.6); Lymphocytes # 1.7 10^3/uL (0.8-4.8); Lymphocytes % 13.4 %; Mean Corpuscular HGB Conc 33.1 g/dL (30.0-36.0); Mean Corpuscular Hemoglobin 28.2 pg (28.0-34.0); Mean Corpuscular Volume 85.1 fL (80-94); Mean Platelet Volume 9.4 fL (7.4-10.4); Monocytes # 1.3 10^3/uL (0.2-0.9); Monocytes % 10.3 %; Neutrophils # 8.8 10^3/uL (1.8-7.7); Neutrophils % 71.1 %; Nucleated Red Blood Cells % 0 %; Platelet Count 329 10^3/cmm (130-400); Red Blood Count 4.76 10^6/uL (4.1-5.3); White Blood Count 12.4 10^3/uL (4.0-10.0)
[2019-10-19 06:01] LABS: Alanine Aminotransferase 55 U/L (0-41); Albumin Level 3.2 g/dL (3.5-5.2); Alkaline Phosphatase 149 IU/L (40-130); Anion Gap 15.6 (5-19); Aspartate Amino Transferase 34 U/L (0-40); Blood Urea Nitrogen 19 mg/dL (8-23); Calcium 8.3 mg/dL (8.5-10.5); Carbon Dioxide 24 mmol/L (22-29); Chloride 104 mmol/L (98-107); Creatinine Clr Calc Pharmacy 43.5015; Globulin 2.8 g/dL (1.3-4.6); Glucose 107 mg/dL (65-115); Osmolality Calculated 285 mOsm/kg (285-295); Potassium 4.6 mmol/L (3.5-5.1); Sodium 139 mmol/L (136-145); Total Bilirubin 0.6 mg/dL (0.15-1.2)
[2019-10-19] MEDS: acetaminophen 325 mg Tablet 650 MG PO (06:17)
--- NOTE | 2019-10-19 06:31 | PC.NURSE ---
SHIFT SUMMARY Has had a good night. Denied pain until this am when stated was having some scrotal pain. Given po Tylenol. Is confused and forgetful but very pleasant and talkative. Is asking what kind of surgery he had. Sitter at bedside all shift. Dressing/scrotal support remains intact, clean & dry. Salvador intact and draining well. Urine from dark to light ysabel. Is cloudy with occ small clot passed. IV infusing at 50ml/hr rate.
[2019-10-19 07:10] VITALS: BP 111/56; PULSE 78; RESP 16; TEMP 36.7; O2SAT 94
--- NOTE | 2019-10-19 07:14 | PM.PN ---
Subjective Subjective: Interval history: Postoperative day #1 left orchiectomy Intraoperative findings showed what appeared to be old blood and probably a traumatized testicle without clear evidence of infection. Denies any pain this morning. No tenderness in the left hemiscrotum other than typical postop findings. Much improved clinically. Wound looks good. Urine is draining much clearer White count has decreased to 12.4. Creatinine has decreased to 1.4 after catheter placement. RECOMMENDATIONS: 1. Can discharge when deemed safe from hospitalist perspective 2. Discharged with Salvador catheter in place. I will give [facility] to [facility] for [facility] in a couple days with follow-up PVR checks. We will contact the [facility]iary after discharge to confirm voiding status. 3. Based on his near retention/overflow incontinence status I expect that he is just simply not emptying his neobladder well which led to the infection and active bleeding. He had recently had a flexible cystoscopy in my office that showed no clear evidence of malignant process but did show inflammatory changes. For that reason I think keeping him on a full course of antibiotics to clear the cystitis would be indicated. Medications: Reviewed: Yes Vitals/I&O/Wt Last Vital Signs Temp 98.1 F 10/19/19 07:10 Pulse 78 10/19/19 07:10 Resp 16 10/19/19 07:10 BP 111/56 10/19/19 07:10 Pulse Ox 94 10/19/19 07:10 10/18/19 10/19/19 10/19/19 22:59 06:59 14:59 Intake Total 465 / 465 400 / 865 Output Total 310 / 310 900 / 1210 Balance 155 / 155 -500 / -345 Weight last 48 hrs Weight 170 lb Weight 170 lb Physical Exam Const: COMMON NORMALS: no acute distress, alert and well nourished GENERAL APPEARANCE: well kempt and well developed Neck/C-Spine: COMMON NORMALS: full ROM Resp: COMMON NORMALS: normal respiratory effort EFFORT & INSPECTION: No labored and No Actively coughing : MALE GROIN/PERINEUM EXAM: No ecchymosis and No hernia PENIS: normal penis SCROTUM: No edematous and No scrotal swelling Extremity: COMMON NORMALS: no clubbing, cyanosis or edema Neuro: SENSORIUM/ORIENTATION: Yes alert Psych: APPEARANCE: Yes well kempt ATTITUDE: Yes calm Skin: COMMON NORMALS: no rashes or lesions noted and no jaundice GENERAL SKIN EXAM: no rashes or lesions noted Urinary Catheter Management^: 3-way Urethral CBI: Cath Placed During This Visit: yes, but has since been removed by the nurse Reason for Continuing Indwelling Catheter: Other Urinary Catheter Date of Insertion: 10/18/19 Urinary Catheter Time of Insertion: 12:47 Date Urinary Catheter Removed: 10/18/19 Time Urinary Catheter Discontinued: 17:31 Data : 10/19/19 04:17 10/19/19 04:17 Micro: Microbiology 10/18/19 07:58 Blood Culture - Preliminary Blood SPECIMEN COLLECTED 10/18/19 07:52 Blood Culture - Preliminary Blood SPECIMEN COLLECTED A&P Assessment and plan (1) UTI (urinary tract infection): Likely related to her urinary retention with poorly emptying neobladder. Status: Acute Qualifiers: Urinary tract infection type: acute cystitis (2) Urinary retention: Would recommend discharging on Salvador catheter. I will have the [facility]iary remove the catheter in a couple days after his bladder is had a chance to decompress and then check PVRs. Status: Acute (3) Scrotal mass: Final pathology pending at this point. I am suspecting that his testicle was injured in a fall and had a large intra-tunica vaginalis hematoma which would account for the findings intraoperatively and on ultrasound. Changes to plan based on final pathology. Is doing well following excision of the left hemiscrotal contents. Status: Acute Attestations Medical Necessity Statement*: See attending. Coding Level of Care Code Acute Bulk Picker for Ivonne Bingham Diagnoses UTI (urinary tract infection) N39.0 Urinary tract infection type: acute cystitis Urinary retention R33.9 Scrotal mass N50.89
[2019-10-19] MEDS: metoprolol tartrate 25 mg Tablet 12.5 MG PO (08:15)
[2019-10-19] MEDS: memantine 5 mg tablet 10 MG PO (08:15)
[2019-10-19 10:36] LABS: Hemoglobin 12.7 g/dL (11.7-16.6)
--- NOTE | 2019-10-19 11:16 | PM.DCS ---
Discharge Providers Date of Admission: 10/18/19 11:28 Date of Discharge: October 19, 2019 Attending Provider at Admission: Autumn Dixon DO Attending Provider at Discharge: Autumn Dixon DO Diagnoses at Discharge Discharge Diagnosis (1) UTI (urinary tract infection): Status: Acute Qualifiers: Urinary tract infection type: acute cystitis (2) Urinary retention: Status: Acute (3) Scrotal mass: Status: Acute Problem details: With ruptured left testicle status post left orchiectomy Reason for Visit Reason for Visit: BLOOD IN URINE Hospital Course Hospital Course: Patient was sent from the nursing home facility due to onset of hematuria. Patient was seen and evaluated in the emergency department noted to have concern for gross hematuria with increased scrotal swelling and pain. He was noted to have a CT scan performed which showed left testicular mass and area of concern in the bladder. Patient was noted to have a history of bladder cancer status post ileal neobladder. Patient was noted to have urinary retention while in the emergency department and therefore Salvador catheter was placed, immediate drainage of 800 mL of urine, bloody, from the neobladder. Manual irrigation was performed and this continued to improve and urine continued to clear. He was noted to have acute kidney injury that was likely due to obstructive process. He was started on broad-spectrum empiric IV antibiotics with vancomycin and Zosyn and admitted for further evaluation and treatment. Dr. Cannon, urologist, was consulted and patient was taken to the OR due to scrotal mass with concern for testicular lesion on the left. Patient was noted to have concern for a ruptured left testicle and left orchiectomy with a scrotal approach was performed on 10/18/2019. Patient did well in the postoperative setting with no anesthesia complications. On date of discharge, postop day #1, patient but is awake eating breakfast with no concerns. He denied any chest pain, no shortness of breath, resolution of abdominal pain, no scrotal pain or penile pain. Patient had pink-tinged urine from his Salvador catheter, this was discussed with urology and the recommendation was to continue with Salvador catheter placement at this time and at time of discharge to the nursing home facility. It was noted the patient had a recent cystoscopy in fall 2018, therefore bladder neoplasm was felt to be unlikely. Patient had previously been on Bactrim due to concern for urinary tract infection, called and verified with the nursing facility and it was noted that patient was growing Proteus on urine culture, sensitive to Levaquin. Called and discussed with patient's , Dominique and made her aware of patient's condition and clinical improvement, discussed with her plan for discharge back to nursing home facility, she verbalized understanding and agreed with plan. Patient discharged back to nursing home facility, [facility]. Patient's mentation remained at baseline with underlying dementia. Physical Exam Const: COMMON NORMALS: alert ORIENTATION/CONSCIOUSNESS: Yes awake OTHER: underlying dementia, no acute distress HENMT: COMMON NORMALS: normocephalic and atraumatic HEAD & SCALP: normocephalic and atraumatic Eye: COMMON NORMALS: Equal, round and reactive pupils present PUPIL: Yes Equal, round and reactive pupils present Neck/C-Spine: COMMON NORMALS: supple GENERAL: Yes normal visual inspection Resp: COMMON NORMALS: normal respiratory effort and clear to auscultation bilaterally EFFORT & INSPECTION: Yes able to speak in complete sentences AUSCULTATION: clear to auscultation bilaterally, no rhonchi and no wheezes Cardio: COMMON NORMALS: regular rate, regular rhythm and No murmurs present (Cardio) RATE: regular rate RHYTHM: regular rhythm GI: COMMON NORMALS: Soft to palpation INSPECTION: No abdominal distension AUSCULTATION: Yes normoactive bowel sounds PALPATION: Yes Soft to palpation and Yes Tenderness to palpation present (GI) (suprapubic tenderness) : COMMON NORMALS: Yes no CVA tenderness BLADDER/KIDNEY EXAM: Yes no CVA tenderness OTHER: Salvador catheter in place, pink-tinged urine in Salvador catheter, scrotum status post left orchiectomy Back/Pelvis: COMMON NORMALS: no CVA tenderness Extremity: COMMON NORMALS: no clubbing, cyanosis or edema and no calf tenderness Neuro: COMMON NORMALS: CN's II-XII intact bilaterally, moves all extremities and no focal motor deficits SENSORIUM/ORIENTATION: Yes alert SPEECH: speech normal OTHER: underlying confusion secondary to dementia Psych: OTHER: underlying confusion due to dementia Urinary Catheter Management^: 3-way Urethral CBI: Cath Placed During This Visit: yes, but has since been removed by the nurse Reason for Continuing Indwelling Catheter: Other Urinary Catheter Date of Insertion: 10/18/19 Urinary Catheter Time of Insertion: 12:47 Date Urinary Catheter Removed: 10/18/19 Time Urinary Catheter Discontinued: 17:31 2-way Urethral: Cath Placed During This Visit: yes Reason for Continuing Indwelling Catheter: Acute Urinary Retention or Obstruction Urinary Catheter Date of Insertion: 10/18/19 Urinary Catheter Time of Insertion: 18:15 Discharge Data Data Completed and Pending: Completed Studies During Hospitalization Category Date Time Status CT kidney stone 7 [id number] Urgent Cat Scan 10/18/19 08:33 Completed US scrotum [id number] Urgent Ultrasound 10/18/19 08:15 Completed Pending at discharge Category Date Time Status Blood Culture Sta t Lab 10/18/19 07:58 Results Urine Culture Sta t Lab 10/18/19 14:35 Results Pathology: Surgic al [PTH] Routine Pth 10/18/19 18:30 Ordered Labs from last 24 hours 10/19/19 10/19/19 10/19/19 09:58 04:17 04:17 WBC 12.4 H RBC 4.76 Hgb 12.7 13.4 Hct 39.0 L 40.5 L MCV 85.1 MCH 28.2 MCHC 33.1 RDW 13.0 Plt Count 329 MPV 9.4 Neut % (Auto) 71.1 Lymph % (Auto) 13.4 [place] % (Auto) 10.3 Eos % (Auto) 3.0 Baso % (Auto) 0.6 Neut # (Auto) 8.8 H Lymph # (Auto) 1.7 [place] # (Auto) 1.3 H Eos # (Auto) 0.4 Baso # (Auto) 0.1 Nucleated RBC % (a uto) 0 Nucleated RBCs # 0.0 Sodium 139 Potassium 4.6 Chloride 104 Carbon Dioxide 24 Anion Gap 15.6 BUN 19 Creatinine 1.4 H Glucose 107 Calculated Osmolal ity 285 Calcium 8.3 L Total Bilirubin 0.6 AST 34 ALT 55 H Alkaline Phosphata se 149 H Total Protein 6.0 L Albumin 3.2 L Globulin 2.8 Urine Color Urine Appearance Urine pH Ur Specific Grav[place] y Urine Protein Urine Glucose (UA) Urine Ketones Urine Blood Urine Nitrate Urine Bilirubin Urine Urobilinogen Ur Leukocyte Yajaira ase Urine RBC Urine WBC Ur Squamous Epith Cells Amorphous Sediment Urine Bacteria Urine Yeast Blood Type Rho(D) Type Antibody Screen 10/19/19 10/18/19 10/18/19 01:25 19:50 14:35 WBC RBC Hgb 13.6 14.7 Hct 42.1 44.6 MCV MCH MCHC RDW Plt Count MPV Neut % (Auto) Lymph % (Auto) [place] % (Auto) Eos % (Auto) Baso % (Auto) Neut # (Auto) Lymph # (Auto) [place] # (Auto) Eos # (Auto) Baso # (Auto) Nucleated RBC % (a uto) Nucleated RBCs # Sodium Potassium Chloride Carbon Dioxide Anion Gap BUN Creatinine Glucose Calculated Osmolal ity Calcium Total Bilirubin AST ALT Alkaline Phosphata se Total Protein Albumin Globulin Urine Color Brown Urine Appearance Turbid Urine pH 5 Ur Specific Gravit y 1.020 Urine Protein 2+ H Urine Glucose (UA) Norm Urine Ketones Negative Urine Blood 3+ H Urine Nitrate Negative Urine Bilirubin Neg Urine Urobilinogen Norm Ur Leukocyte Yajaira ase 2+ H Urine RBC 15-25 H Urine WBC 5-10 H Ur Squamous Epith Cells None Amorphous Sediment 2+ Urine Bacteria 3+ H Urine Yeast 1+ H Blood Type Rho(D) Type Antibody Screen 10/18/19 10/18/19 14:19 10:08 WBC RBC Hgb 14.5 Hct 44.4 MCV MCH MCHC RDW Plt Count MPV Neut % (Auto) Lymph % (Auto) [place] % (Auto) Eos % (Auto) Baso % (Auto) Neut # (Auto) Lymph # (Auto) [place] # (Auto) Eos # (Auto) Baso # (Auto) Nucleated RBC % (a uto) Nucleated RBCs # Sodium Potassium Chloride Carbon Dioxide Anion Gap BUN Creatinine Glucose Calculated Osmolal ity Calcium Total Bilirubin AST ALT Alkaline Phosphata se Total Protein Albumin Globulin Urine Color Urine Appearance Urine pH Ur Specific Grav[place] y Urine Protein Urine Glucose (UA) Urine Ketones Urine Blood Urine Nitrate Urine Bilirubin Urine Urobilinogen Ur Leukocyte Yajaira ase Urine RBC Urine WBC Ur Squamous Epith Cells Amorphous Sediment Urine Bacteria Urine Yeast Blood Type O Positive Rho(D) Type Positive Antibody Screen Negative Vitals: Last Vital Signs Temp 98.1 F 10/19/19 07:10 Pulse 78 10/19/19 07:10 Resp 16 10/19/19 07:10 BP 111/56 10/19/19 07:10 Pulse Ox 94 10/19/19 07:10 Discharge Plan Discharge Patient Disposition: Xfer SNF Condition: Stable Prescriptions: New levofloxacin [Levaquin] 500 mg tablet 500 mg PO DAILY 10 Days Qty: 10 RF: 0 Continued acetaminophen 325 mg Tablet See Rx Instructions .ROUTE .COMPLEX RF: 0 trazodone 50 mg Tablet 50 mg PO BEDTIME RF: 0 donepezil 10 mg Tablet 10 mg PO BEDTIME RF: 0 furosemide [Lasix] 20 mg Tablet 20 mg PO DAILY RF: 0 memantine 10 mg Tablet 10 mg PO BID RF: 0 metoprolol tartrate 25 mg Tablet 12.5 mg PO BID RF: 0 Held aspirin [Aspir-81] 81 mg Tablet,Delayed Release (Dr/Ec) 81 mg PO DAILY RF: 0 Hold Instructions: Resume on 11/02/19. Discontinued sulfamethoxazole-trimethoprim [Bactrim DS] 800-160 mg Tablet 1 tab PO BID RF: 0 Discharge Orders: Discharge Order (Routine); Ordered 10/19/19 Ordered By: Autumn Dixon Referrals: Keanu Cannon MD [Physician] - (To be arranged. Discharge with Salvador catheter in place. Dr. Cannon to [facility] to the jail for [facility] in a couple of days with follow-up PVR checks. We will contact the jail after discharge to confirm voiding status.) Discharge Diet: Advance as tolerated and Usual diet Discharge Activity: Increase activity as tolerated Activity Restrictions/Additional Instructions: Urology instructions to [facility]: 1. Remove Salvador catheter on 10/21/2019. 2. Check postvoid residual with in and out catheterization twice a day for the next several days and report those results to [facility]: [phone]. salesperson flowers: Blanca Squires 3. Can replace Salvador catheter if persistently elevated PVRs. I would use a regular 16 [place] catheter. 4. His left testicle was removed. Please call if there is any concerns about the wound appearance. Maintain scrotal support x1 week. Discontinue Bactrim Start on Levaquin 500 mg daily for 10 days Continue with Salvador catheter management as described above by Dr. Cannon Follow-up with primary care provider at the nursing home facility in 2 to 3 days Hold aspirin for 2 weeks, or as determined by primary care provider Oxygen therapy protocol as needed Increase activity and diet as tolerated Discussed with physician or present to the ED for any acute illness or concern Discharge Attestations Time Spent in Discharge Care*: greater than 30 min Specific Discharge Activities: Specific discharge activities: educating and/or supporting family/caregiver Quality Metrics Clinical Quality Measures During this hospital stay, did patient experience: None Coding Level of Care Code Acute Wildlife Technician for Chg Fwd Diagnoses UTI (urinary tract infection) N39.0 Urinary tract infection type: acute cystitis Urinary retention R33.9 Scrotal mass N50.89
--- NOTE | 2019-10-19 11:29 | PC.CHAP ---
Pastoral Care Encounter/Spiritual Assessment Type of Contact [] Declined slasher operator visit [] Patient/Family/Request visit [] Outpatient visit [] Follow-up visit [] Physician referral [] Code/Alert [] Routine visit [] Staff referral [] Actively dying [] Patient sleeping [] Family support [] [] Out of room [] Palliative care [] [] Receiving care in room [] Pre-surgical visit [] Trauma [] Long length of stay [] ICU visit [] Other: not co-hearant Relational/Emotional Strength [] Patient feels connected with others/family/visitors/staff [] Distress [] Loneliness/isolation [] Abandonment Spirituality of Patient [] Person of Samantha [] Attends Sabianist of their Samantha [] Believes in Prayer [] Reads Bible or Jehovah'S Witness materials [] There are Spiritual issues to be addressed [employer] Interventions [] Prayer [] Active listening [] Non-anxious presence [] Spiritual/emotional support [] Crisis/trauma care [] Spiritual counseling [] Bereavement support [] Provided bereavement packet [] Provided Bible/devotional materials [] Provided toy/stuffed animal, coloring book to patient or family member [] Provided Communion [] Anointing/Freedom [] Salvation [] Completed spiritual assessment [] Other: Impact on Illness or Injury [] Angry [] Fearful [] Anxious [] Often cries [] Exhaustion [] Unable to work [] Unable to attend sabianism [] Unable to walk/stand [] Unable to read [] Unable to drive [] Unable to eat/drink [] Unable to sleep [] Unable to be with family [] Patient intubated [] Other: Summary not co-hearant Time spent with patient 5 mins
[2019-10-19 11:42] VITALS: BP 111/56; PULSE 78; RESP 16; TEMP 36.7; O2SAT 94
[2019-10-19 12:15] LABS: Glucose Point of Care 108 mg/dL (70-110)
--- NOTE | 2019-10-19 12:15 | ECG_ITS ---
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 Measurements Intervals [place] Rate: 84 P: 70 ME: 181 QRS: -52 QRSD: 143 T: 17 QT: 376 QTc: 445 Interpretive Statements SINUS RHYTHM RIGHT BUNDLE BRANCH BLOCK [120+ ms QRS DURATION, UPRIGHT V1, 40+ ms S IN I I/aVL/V4/V5/V6] LEFT ANTERIOR FASCICULAR BLOCK [QRS AXIS <= -45, QR IN I, RS IN II] Compared to ECG 10/18/2019 13:58:12 Myocardial infarct finding no longer present Electronically Signed On 10-20-2019 14:16:28 CDT by Diana Murrieta M.D. [id number]
--- NOTE | 2019-10-19 12:24 | ANE.PACU2 ---
Inpatient post-anesthesia follow up: Airway intact: Yes Vital signs: Temperature 98.1 F Pulse Rate [Monito r] 72 Pulse Rate 78 Respiratory Rate 16 Blood Pressure [Ri ght Arm] 139/103 Blood Pressure 111/56 Pulse Oximetry 94 Oxygen Delivery Me thod Nasal Cannula Oxygen Flow Rate 2 Fraction of Inspir ed Oxygen Hydration adequate: Yes Nausea and vomiting: No Pain level: 2 Mental status: Baseline
[2019-10-19] MEDS: FUROsemide 20 mg Tablet PO (12:28)
[2019-10-19 15:21] VITALS: BP 134/72; PULSE 58; RESP 16; TEMP 36.6; O2SAT 95
[2019-10-19 15:36] VITALS: BP 134/72; PULSE 58; RESP 16; TEMP 36.6; O2SAT 95
== END 2019-10-19 15:37 | disposition skilled nursing facility (03) | DRG 711 ==
LOC: ER 10:51 → MEDSURG 12:07
PROVIDERS: Family Medicine; Urology; Admitting Provider Family Medicine; Emergency Provider Physician Assistant; Visit Provider Family Medicine
PROC: 0VTB0ZZ Resection of Left Testis, Open Approach (ICD-10-PCS; CPT 55110; principal; 2019-10-18 16:45)
PROC: 0VTB0ZZ Resection of Left Testis, Open Approach (ICD-10-PCS; 2019-10-18 16:45)
DX: N50.89 Other specified disorders of the male genital organs (principal); N39.0 Urinary tract infection, site not specified; N13.30 Unspecified hydronephrosis; R31.0 Gross hematuria; Z79.82 Long term (current) use of aspirin; Z66 Do not resuscitate; Z85.51 Personal history of malignant neoplasm of bladder; G30.9 Alzheimer's disease, unspecified; F02.80 Dementia in other diseases classified elsewhere, unspecified severity, without behavioral disturbance, psychotic disturbance, mood disturbance, and anxiety; I10 Essential (primary) hypertension; Z87.891 Personal history of nicotine dependence
CPT/HCPCS: 12345; 36415; 36416; 51702; 74176; 76870; 80053; 81001; 82962; 83605; 85014; 85018; 85025; 86850; 86900; 87040; 87086; 88304; 93005; 96375; 97116; 97161; 97165; 99283; J2001; J2060; J2270; J2405; J2543; J2704; J3010; J3370; J3490; J7030; J7040

== ENCOUNTER 2021-01-17 19:59 | Inpatient (IN) | payer MEDICARE, MEDICAID, SELFPAY ==
--- NOTE | 2021-01-17 20:14 | XRR_ITS ---
PROCEDURE INFORMATION: Exam: XR Chest Exam date and time: 01/17/2021 8:14 PM Age: 80 years old Clinical indication: Shortness of breath; Additional info: Fever TECHNIQUE: Imaging protocol: XR of the chest. Views: 1 view. Total images: 1 COMPARISON: CR Chest 2 views* [id number] 04/20/2015 9:43 AM FINDINGS: Lungs: No visible active interstitial or alveolar airspace disease. COPD/chronic bronchitis. Rare calcified granuloma of antecedent disease. Pleural spaces: Unremarkable. No pleural effusion. No pneumothorax. Heart/Mediastinum: Cardiac structures and configuration with arteriosclerosis. Bones/joints: Unremarkable for age. XR/XR chest 1V portable [id number] IMPRESSION: Nonacute.
--- NOTE | 2021-01-17 20:14 | CTR_ITS ---
PROCEDURE INFORMATION: Exam: CT Head Without Contrast Exam date and time: 01/17/2021 8:14 PM Age: 80 years old Clinical indication: Altered mental status/memory loss; Patient HX: PT has dementia; Additional info: AMS TECHNIQUE: Imaging protocol: Computed tomography of the head without contrast. Total images: 212 Radiation optimization: All CT scans at this facility use at least one of these dose optimization techniques: automated exposure control; mA and/or kV adjustment per patient size (includes targeted exams where dose is matched to clinical indication); or iterative reconstruction. COMPARISON: MR head wo con* [id number] 10/27/2014 7:30 AM RADIATION DOSE METRICS: Total DLP (mGy-cm): 1638.36 FINDINGS: Brain: No evidence of active or acute intracranial pathologic process, hemorrhage, or trauma. No hyperdense MCA or insular ribbon sign. No mass effect. No midline shift. 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 Cerebral and cerebellar atrophy with ventricular dilatation greater than that anticipated for patient's chronological age. Cerebral arteriosclerosis. Cerebral ventricles: Ventriculomegaly greater than that anticipated for the degree of cortical atrophy present. Thinning of the corpus callosum. Consideration might be given to normal pressure hydrocephalus. Paranasal sinuses: Visualized sinuses are unremarkable. No fluid levels. Mastoid air cells: Visualized mastoid air cells are well aerated. Bones/joints: Unremarkable. No acute fracture. Soft tissues: Unremarkable. CT/CT head wo con* [id number] IMPRESSION: 1. No evidence of active or acute intracranial pathologic process, hemorrhage, or trauma. 2. Other nonurgent, nonemergent, chronic, and age related findings as detailed in text above. Radiation Dose CTDIVOL = (mGy): DLP = 1638.36 (mGy-cm)
--- NOTE | 2021-01-17 20:15 | ECG_ITS ---
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 Measurements Intervals [place] Rate: 94 P: 80 MA: 182 QRS: -30 QRSD: 126 T: 37 QT: 363 QTc: 455 Interpretive Statements SINUS RHYTHM BORDERLINE LEFT AXIS DEVIATION [QRS AXIS < -20] RIGHT BUNDLE BRANCH BLOCK [120+ ms QRS DURATION, UPRIGHT V1, 40+ ms S IN I/aVL/V4/V5/V6] Compared to ECG 10/19/2019 12:22:07 Left anterior fascicular block no longer present Electronically Signed On 01-19-2021 18:58:08 CDT by Diana Murrieta M.D. [id number]
[2021-01-17 20:16] VITALS: BP 80/54; RESP 16; TEMP 37.8; BMI 22.9
--- NOTE | 2021-01-17 20:21 | W.ED.AMS ---
HPI - Altered Mental Status General: Chief Complaint: Fever Stated Complaint: CONFUSED Time Seen by Provider: 01/17/21 20:09 Source: EMS Mode of arrival: EMS Limitations: altered mental status History of Present Illness: HPI narrative: 8-year-old male is here for increased confusion along with fever. He does have a long history of dementia but per EMS longterm states he did been more confused over the last day. Here patient is unable to answer any questions or give any history. Stated he had a temperature of 102 at the longterm today. He has had significant histories of urinary tract infections in the past. He has had no known cough. No vomiting or diarrhea. 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 Social History Smoking and tobacco status: former smoker Physical Exam Const: COMMON NORMALS: no acute distress; negative for patient oriented x3 EXAM LIMITATIONS: altered mental status GENERAL APPEARANCE: frail appearing HENMT: COMMON NORMALS: normocephalic and atraumatic HEAD & SCALP: normocephalic and atraumatic Eye: COMMON NORMALS: Equal, round and reactive pupils present and EOMs intact bilaterally PUPIL: Yes Equal, round and reactive pupils present Neck/C-Spine: COMMON NORMALS: full ROM and supple Chest: COMMONS NORMALS: normal inspection of the chest and normal palpation of entire chest wall Resp: COMMON NORMALS: normal respiratory effort, No retractions, No use of accessory muscles and clear to auscultation bilaterally AUSCULTATION: clear to auscultation bilaterally Cardio: COMMON NORMALS: regular rate, regular rhythm and No murmurs present (Cardio) RATE: regular rate RHYTHM: regular rhythm GI: COMMON NORMALS: Normal to inspection, nondistended, normoactive bowel sounds present, Soft to palpation, non-tender and no masses PALPATION: Yes Soft to palpation Extremity: COMMON NORMALS: normal to inspection and full ROM Neuro: COMMON NORMALS: moves all extremities and no focal motor deficits; negative for patient oriented x3 Psych: COMMON NORMALS: cooperative; negative for mental status grossly normal Skin: COMMON NORMALS: no rashes or lesions noted and no wounds GENERAL SKIN EXAM: no rashes or lesions noted Course Vital Signs: Vital signs: Vital Signs Temperature 100.1 F H 01/17/21 20:16 Respiratory Rate 16 01/17/21 20:16 Blood Pressure 80/54 01/17/21 20:16 MDM - Altered Mental Status MDM Narrative: Medical decision making narrative: Patient presents here with increased altered male status along with fever and sepsis. He is all likely from his urinary tract infection. His lactate level on blood pressures here been normal and he has no signs of shock. Spoke to the hospitalist will admit. Patient's been given IV fluids and antibiotics down the ER. Lab Data: Labs: Lab Results 01/17/21 01/17/21 01/17/21 Range/Units 20:20 20:20 20:20 WBC 27.2 H (4.0-10.0) 10^3/ uL RBC 5.10 (4.1-5.3) 10^6/u L Hgb 14.6 (11.7-16.6) g/dL Hct 43.9 (42.0-52.0) % MCV 86.1 (80-94) fl MCH 28.6 (28.0-34.0) pg MCHC 33.3 (30.0-36.0) g/dL RDW 12.3 (12.1-15.1) % Plt Count 287 (130-400) 10^3/c mm MPV 9.7 (7.4-10.4) fL Neut % (Auto) 81.6 % Lymph % (Auto) 6.8 % Hardy % (Auto) 10.7 % Eos % (Auto) 0.1 % Baso % (Auto) 0.3 % Neut # (Auto) 22.21 H (1.8-7.7) 10^3/u L Lymph # (Auto) 1.8 (0.8-4.8) 10^3/u L Hardy # (Auto) 2.9 H (0.2-0.9) 10^3/u L Eos # (Auto) 0.0 (0.0-0.8) 10^3/u L Baso # (Auto) 0.1 (0.0-0.1) 10^3/u L Nucleated RBC % (a uto) 0 % Nucleated RBCs # 0.0 /100WBC Sodium 143 (136-145) mmol/L Potassium 4.1 (3.5-5.1) mmol/L Chloride 106 (98-107) mmol/L Carbon Dioxide 25 (22-29) mmol/L Anion Gap 16.1 (5-19) BUN 17 (8-23) mg/dL Creatinine 1.1 (0.7-1.2) mg/dL GFR Calculation Not Reportable Glucose 111 (65-115) mg/dL Calculated Osmolal ity 298 H (285-295) mOsm/k g Lactic Acid (0.5-2.2) mmol/L Calcium 8.1 L (8.5-10.5) mg/dL Total Bilirubin 1.3 H (0.15-1.2) mg/dL AST 11 (0-40) U/L ALT 8 (0-41) U/L Alkaline Phosphata se 113 (40-130) IU/L Troponin T Baselin e 22 H (0-15) ng/L Troponin T 120 Min [place] (0-15) ng/L Delta Troponin T (0-10) ABS# C-Reactive Protein 140.4 H (0.0-4.9) mg/L Total Protein 5.9 L (6.6-8.7) g/dL Albumin 3.6 (3.5-5.2) g/dL Globulin 2.3 (1.3-4.6) g/dL Urine Color (Yellow) Urine Appearance (CLEAR) Urine pH (5-7) Ur Specific Gravit y (1.005-1.030) Urine Protein (Negative) Urine Glucose (UA) (Normal) Urine Ketones (Negative) Urine Blood (Negative) Urine Nitrate (Negative) Urine Bilirubin (Negative) Urine Urobilinogen (Negative) mg/dL Ur Leukocyte Yajaira ase (Negative) Urine RBC (0-2) /hpf Urine WBC (0-5) /hpf Ur Squamous Epith Cells (0-5) /hpf Amorphous Sediment Urine Bacteria (NONE) /hpf SARS-CoV-2 Ag (Rap id) (Negative) 01/17/21 01/17/21 01/17/21 Range/Units 20:20 22:00 22:05 WBC (4.0-10.0) 10^3/ uL RBC (4.1-5.3) 10^6/u L Hgb (11.7-16.6) g/dL Hct (42.0-52.0) % MCV (80-94) fl MCH (28.0-34.0) pg MCHC (30.0-36.0) g/dL RDW (12.1-15.1) % Plt Count (130-400) 10^3/c mm MPV (7.4-10.4) fL Neut % (Auto) % Lymph % (Auto) % Hardy % (Auto) % Eos % (Auto) % Baso % (Auto) % Neut # (Auto) (1.8-7.7) 10^3/u L Lymph # (Auto) (0.8-4.8) 10^3/u L Hardy # (Auto) (0.2-0.9) 10^3/u L Eos # (Auto) (0.0-0.8) 10^3/u L Baso # (Auto) (0.0-0.1) 10^3/u L Nucleated RBC % (a uto) % Nucleated RBCs # /100WBC Sodium (136-145) mmol/L Potassium (3.5-5.1) mmol/L Chloride (98-107) mmol/L Carbon Dioxide (22-29) mmol/L Anion Gap (5-19) BUN (8-23) mg/dL Creatinine (0.7-1.2) mg/dL GFR Calculation Glucose (65-115) mg/dL Calculated Osmolal ity (285-295) mOsm/k g Lactic Acid 1.1 (0.5-2.2) mmol/L Calcium (8.5-10.5) mg/dL Total Bilirubin (0.15-1.2) mg/dL AST (0-40) U/L ALT (0-41) U/L Alkaline Phosphata se (40-130) IU/L Troponin T Baselin e (0-15) ng/L Troponin T 120 Min [place] 20.10 H (0-15) ng/L Delta Troponin T -1.90 L (0-10) ABS# C-Reactive Protein (0.0-4.9) mg/L Total Protein (6.6-8.7) g/dL Albumin (3.5-5.2) g/dL Globulin (1.3-4.6) g/dL Urine Color (Yellow) Urine Appearance (CLEAR) Urine pH (5-7) Ur Specific Gravit y (1.005-1.030) Urine Protein (Negative) Urine Glucose (UA) (Normal) Urine Ketones (Negative) Urine Blood (Negative) Urine Nitrate (Negative) Urine Bilirubin (Negative) Urine Urobilinogen (Negative) mg/dL Ur Leukocyte Yajaira ase (Negative) Urine RBC (0-2) /hpf Urine WBC (0-5) /hpf Ur Squamous Epith Cells (0-5) /hpf Amorphous Sediment Urine Bacteria (NONE) /hpf SARS-CoV-2 Ag (Rap id) Negative (Negative) 01/17/21 Range/Units 22:30 WBC (4.0-10.0) 10^3/ uL RBC (4.1-5.3) 10^6/u L Hgb (11.7-16.6) g/dL Hct (42.0-52.0) % MCV (80-94) fl MCH (28.0-34.0) pg MCHC (30.0-36.0) g/dL RDW (12.1-15.1) % Plt Count (130-400) 10^3/c mm MPV (7.4-10.4) fL Neut % (Auto) % Lymph % (Auto) % Hardy % (Auto) % Eos % (Auto) % Baso % (Auto) % Neut # (Auto) (1.8-7.7) 10^3/u L Lymph # (Auto) (0.8-4.8) 10^3/u L Hardy # (Auto) (0.2-0.9) 10^3/u L Eos # (Auto) (0.0-0.8) 10^3/u L Baso # (Auto) (0.0-0.1) 10^3/u L Nucleated RBC % (a uto) % Nucleated RBCs # /100WBC Sodium (136-145) mmol/L Potassium (3.5-5.1) mmol/L Chloride (98-107) mmol/L Carbon Dioxide (22-29) mmol/L Anion Gap (5-19) BUN (8-23) mg/dL Creatinine (0.7-1.2) mg/dL GFR Calculation Glucose (65-115) mg/dL Calculated Osmolal ity (285-295) mOsm/k g Lactic Acid (0.5-2.2) mmol/L Calcium (8.5-10.5) mg/dL Total Bilirubin (0.15-1.2) mg/dL AST (0-40) U/L ALT (0-41) U/L Alkaline Phosphata se (40-130) IU/L Troponin T Baselin e (0-15) ng/L Troponin T 120 Min [place] (0-15) ng/L Delta Troponin T (0-10) ABS# C-Reactive Protein (0.0-4.9) mg/L Total Protein (6.6-8.7) g/dL Albumin (3.5-5.2) g/dL Globulin (1.3-4.6) g/dL Urine Color Other (Yellow) Urine Appearance Cloudy (CLEAR) Urine pH 6.5 (5-7) Ur Specific Gravit y 1.010 (1.005-1.030) Urine Protein 1+ H (Negative) Urine Glucose (UA) Norm (Normal) Urine Ketones Negative (Negative) Urine Blood 3+ H (Negative) Urine Nitrate Negative (Negative) Urine Bilirubin Neg (Negative) Urine Urobilinogen Norm (Negative) mg/dL Ur Leukocyte Yajaira ase 2+ H (Negative) Urine RBC Too numerous to c nt H (0-2) /hpf Urine WBC Too numerous to c nt H (0-5) /hpf Ur Squamous Epith Cells 0-4 H (0-5) /hpf Amorphous Sediment Not Reportable Urine Bacteria Trace (NONE) /hpf SARS-CoV-2 Ag (Rap id) (Negative) Imaging Data^: CXR: Attestation: I personally reviewed and interpreted this imaging study as follows: Radiologist's impression: [address] [place] [address] XRay Report Signed Patient: Randall Bay Unit #: [id number] : 1940 Age/Sex: 80 / M ADM Date: 01/17/21 Loc: ER Room/Bed: Attending Dr: Ordering Provider/Ordering MD: Zita Berger MD Date of Service: 01/17/21 Procedure(s): XR chest 1V portable [id number] Accession Number(s): [id number] Report Number: [id number] PROCEDURE INFORMATION: Exam: XR Chest Exam date and time: 01/17/2021 8:14 PM Age: 80 years old Clinical indication: Shortness of breath; Additional info: Fever TECHNIQUE: Imaging protocol: XR of the chest. Views: 1 view. Total images: 1 COMPARISON: CR Chest 2 views* [id number] 04/20/2015 9:43 AM FINDINGS: Lungs: No visible active interstitial or alveolar airspace disease. COPD/chronic bronchitis. Rare calcified granuloma of antecedent disease. Pleural spaces: Unremarkable. No pleural effusion. No pneumothorax. Heart/Mediastinum: Cardiac structures and configuration with arteriosclerosis. Bones/joints: Unremarkable for age. XR/XR chest 1V portable [id number] IMPRESSION: Nonacute. Dictated By: Jarrett Roldan Signed By: Jarrett Roldan Signed Date/Time: 01/17/212110 DD/ 08 CT Head: Radiologist's impression: [address] [address] [address] Scan Report Signed Patient: Randall Bay Unit #: [id number] : 1940 Age/Sex: 80 / M ADM Date: 01/17/21 Loc: ER Room/Bed: Attending Dr: Ordering Provider/Ordering MD: Zita Berger MD Date of Service: 01/17/21 Procedure(s): CT head wo con* [id number] Accession Number(s): [id number] Report Number: [id number] PROCEDURE INFORMATION: Exam: CT Head Without Contrast Exam date and time: 01/17/2021 8:14 PM Age: 80 years old Clinical indication: Altered mental status/memory loss; Patient HX: PT has dementia; Additional info: AMS TECHNIQUE: Imaging protocol: Computed tomography of the head without contrast. Total images: 212 Radiation optimization: All CT scans at this facility use at least one of these dose optimization techniques: automated exposure control; mA and/or kV adjustment per patient size (includes targeted exams where dose is matched to clinical indication); or iterative reconstruction. COMPARISON: MR head wo con* [id number] 10/27/2014 7:30 AM RADIATION DOSE METRICS: Total DLP (mGy-cm): 1638.36 FINDINGS: Brain: No evidence of active or acute intracranial pathologic process, hemorrhage, or trauma. No hyperdense MCA or insular ribbon sign. No mass effect. No midline shift. 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 Cerebral and cerebellar atrophy with ventricular dilatation greater than that anticipated for patient's chronological age. Cerebral arteriosclerosis. Cerebral ventricles: Ventriculomegaly greater than that anticipated for the degree of cortical atrophy present. Thinning of the corpus callosum. Consideration might be given to normal pressure hydrocephalus. Paranasal sinuses: Visualized sinuses are unremarkable. No fluid levels. Mastoid air cells: Visualized mastoid air cells are well aerated. Bones/joints: Unremarkable. No acute fracture. Soft tissues: Unremarkable. CT/CT head wo con* [id number] IMPRESSION: 1. No evidence of active or acute intracranial pathologic process, hemorrhage, or trauma. 2. Other nonurgent, nonemergent, chronic, and age related findings as detailed in text above. Radiation Dose CTDIVOL = (mGy): DLP = 1638.36 (mGy-cm) Dictated By: Jarrett Roldan Signed By: Jarrett Roldan Signed Date/Time: 01/17/212118 DD/ 16 EKG Data^: EKG 1: Attestation: I personally reviewed and interpreted this EKG as follows: EKG interpretation date: 01/17/21 EKG interpretation time: 20:24 Interpretation: nsr hr [address] or t wave abnormalities qrs 126 qtc 415 EKG 2: Attestation: I personally reviewed and interpreted this EKG as follows: EKG interpretation date: 01/17/21 EKG interpretation time: 22:02 Interpretation: nsr hr [address] or t wave abnormalities qrs 132 qtc 426 Critical Care Time Critical Care Time: Critical Care Time: Yes Total Critical Care Time: 35 Attestation: This case had a high probability of a clinically significant, sudden, or life threatening deterioration of this patient's condition which required my full and direct attention, intervention and personal management. Discharge Plan Discharge Patient Disposition: Admitted As Inpatient Clinical Impression: Sepsis Qualifiers: Sepsis type: sepsis due to unspecified organism Sepsis acute organ dysfunction status: unspecified Qualified Code(s): A41.9 - Sepsis, unspecified organism Acute cystitis Qualifiers: Hematuria presence: without hematuria Qualified Code(s): N30.00 - Acute cystitis without hematuria Condition: Stable Coding Level of Care Code ED Plush Cutter for Chg Fwd Exam Comprehensive
[2021-01-17 20:44] LABS: Basophils # 0.1 10^3/uL (0.0-0.1); Basophils % 0.3 %; Eosinophils % 0.1 %; Hematocrit 43.9 % (42.0-52.0); Hemoglobin 14.6 g/dL (11.7-16.6); Lymphocytes # 1.8 10^3/uL (0.8-4.8); Lymphocytes % 6.8 %; Mean Corpuscular HGB Conc 33.3 g/dL (30.0-36.0); Mean Corpuscular Hemoglobin 28.6 pg (28.0-34.0); Mean Corpuscular Volume 86.1 fl (80-94); Mean Platelet Volume 9.7 fL (7.4-10.4); Monocytes # 2.9 10^3/uL (0.2-0.9); Monocytes % 10.7 %; Neutrophils # 22.21 10^3/uL (1.8-7.7); Neutrophils % 81.6 %; Nucleated Red Blood Cells % 0 %; Platelet Count 287 10^3/cmm (130-400); Red Cell Distribution Width 12.3 % (12.1-15.1); White Blood Count 27.2 10^3/uL (4.0-10.0)
[2021-01-17 21:00] VITALS: BP 119/68; PULSE 94; RESP 22; O2SAT 92
[2021-01-17] MEDS: sodium chloride 0.9% 1,000 ML 999 ML IV ×2 (21:00→23:18)
[2021-01-17 21:01] LABS: Troponin(5th) Baseline 22 ng/L (0-15)
[2021-01-17 21:05] LABS: Alanine Aminotransferase 8 U/L (0-41); Albumin Level 3.6 g/dL (3.5-5.2); Alkaline Phosphatase 113 IU/L (40-130); Anion Gap 16.1 (5-19); Aspartate Amino Transferase 11 U/L (0-40); Blood Urea Nitrogen 17 mg/dL (8-23); C Reactive Protein 140.4 mg/L (0.0-4.9); Calcium 8.1 mg/dL (8.5-10.5); Carbon Dioxide 25 mmol/L (22-29); Chloride 106 mmol/L (98-107); Globulin 2.3 g/dL (1.3-4.6); Glucose 111 mg/dL (65-115); Osmolality Calculated 298 mOsm/kg (285-295); Potassium 4.1 mmol/L (3.5-5.1); Sodium 143 mmol/L (136-145); Total Bilirubin 1.3 mg/dL (0.15-1.2); Total Protein 5.9 g/dL (6.6-8.7)
[2021-01-17 21:06] LABS: Lactic Sepsis W/Reflex 1.1 mmol/L (0.5-2.2)
[2021-01-17] MEDS: acetaminophen 325 mg Tablet 650 MG PO (21:16)
[2021-01-17] MEDS: piperacillin-tazobactam 3.375 GM in sodium chloride 0.9% (plus) 50 ML IV (21:16)
[2021-01-17 21:30] VITALS: BP 126/59; RESP 22; O2SAT 92
--- NOTE | 2021-01-17 22:15 | ECG_ITS ---
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 Measurements Intervals [place] Rate: 91 P: 67 MI: 177 QRS: -34 QRSD: 132 T: 9 QT: 377 QTc: 466 Interpretive Statements SINUS RHYTHM LEFT AXIS DEVIATION [QRS AXIS < -30] RIGHT BUNDLE BRANCH BLOCK [120+ ms QRS DURATION, UPRIGHT V1, 40+ ms S IN I/aVL/V4/V5/V6] Compared to ECG 01/17/2021 20:24:07 No significant changes Electronically Signed On 01-19-2021 19:24:29 CDT by Diana Murrieta M.D. [id number]
[2021-01-17 22:30] VITALS: BP 109/61; RESP 20; TEMP 37.3; O2SAT 92
[2021-01-17 22:35] LABS: SARS Covid-2 Antigen Negative (Negative)
[2021-01-17 22:57] LABS: Protein Urine 1+ (Negative); Urine Appearance Cloudy (CLEAR); Urine Color Other (Yellow); pH Urine 6.5 (5-7)
[2021-01-17 22:58] LABS: Add Urine Culture? Yes; Add Urine Microscopic? YES; Bacteria Urine TRACE /hpf; Bilirubin Urine Neg (Negative); Blood Urine 3+ (Negative); Glucose Urine UA Norm (Normal); Ketones Urine Negative (Negative); Leukocyte Esterase Urine 2+ (Negative); Nitrate Urine Negative (Negative); RBC Urine TOO NUMEROUS TO CNT /hpf (0-2); Squamous Epithelial Cell Urine 0-4 /hpf (0-5); Urobilinogen Urine Norm (Negative); WBC Urine TOO NUMEROUS TO CNT /hpf (0-5)
[2021-01-17 23:00] VITALS: BP 112/66; RESP 18; O2SAT 92
[2021-01-17] MEDS: vancomycin 1,000 MG in sodium chloride 0.9% 250 ML 250 MG IV (23:08)
[2021-01-17 23:30] VITALS: BP 108/64; RESP 18; O2SAT 91
--- NOTE | 2021-01-17 23:30 | CTR_ITS ---
PROCEDURE INFORMATION: Exam: CT Abdomen And Pelvis Without Contrast Exam date and time: 01/17/2021 11:30 PM Age: 80 years old Clinical indication: Prior surgery; Surgery type: Bladder. Orchiectomy. ; Patient HX: Gross hematuria. History of bladder cancer. ; Additional info: UTI, HX of scrotal mass, urine with blood, evalaute for ston TECHNIQUE: Imaging protocol: Computed tomography of the abdomen and pelvis without contrast. Total images: 362 Radiation optimization: All CT scans at this facility use at least one of these dose optimization techniques: automated exposure control; mA and/or kV adjustment per patient size (includes targeted exams where dose is matched to clinical indication); or iterative reconstruction. COMPARISON: CR XR KUB [id number] 01/08/2019 9:02 AM RADIATION DOSE METRICS: Total DLP (mGy-cm): 1477.32 FINDINGS: Lungs: Limited assessment lung bases reveals minimal dependent atelectasis right lower lobe. Heart: Calcified mitral annulus. Liver: Few small simple hepatic cysts. No visible hepatic mass. Gallbladder and bile ducts: Status post cholecystectomy. Pancreas: Pancreas is unremarkable for age. No visible pancreatic ductal ectasia. Spleen: Spleen unremarkable. Adrenal glands: Adrenal glands unremarkable. Kidneys and ureters: Moderate severe right hydronephrosis and moderate left hydronephrosis with associated ureterectasis. No visible ureterolithiasis. No nephrolithiasis identified. Very small cortical cyst equator left kidney. No follow-up recommended. Stomach and bowel: Diverticulosis coli primarily involving the sigmoid colon. Nonobstructive bowel pattern. No visible adynamic or reactive ileus. Appendix: The appendix is visualized and appears noninflamed. Intraperitoneal space: No visible pneumoperitoneum or intraperitoneal ascites. Vasculature: Coronary artery disease. The abdominal aorta is nonaneurysmal. Moderate arterial sclerotic disease. Lymph nodes: Unremarkable. No grossly visible enlarged lymph nodes. Urinary bladder: Urinary bladder without asymmetrical bladder wall thickening or gross filling defect. Anterior bladder diverticulum with ureteral attachments versus neobladder ureteral orifice diversion. Reproductive: Status post prostatectomy. Bones/joints: No visible active or acute osseous pathology. Mild scoliosis. Degenerative disease and degenerative disc disease of the spine. Osteopenia. Soft tissues: Amorphous ill-defined mass in the potential space between the distal left psoas and iliacus muscle approximate dimensions 6.5 cm x 3.2 cm x 5.3 cm. This structure contains pockets of emphysema. This does not have the appearance of an organized abscess. Potential immature abscess. Distal sigmoid bowel loop intimately connected or adjacent to this structure and it is possible this finding could be an evolving diverticular abscess. Other findings: Motion artifact. CT/CT kidney stone 66380 IMPRESSION: 1. Amorphous ill-defined mass in the potential space between the distal left psoas and iliacus muscle. This structure contains pockets of emphysema. This does not have the appearance of an organized abscess. Potential immature abscess. 2. Distal sigmoid bowel loop intimately connected or adjacent to this structure and it is possible this finding could be an evolving diverticular abscess. 3. Moderate severe right hydronephrosis and moderate left hydronephrosis with associated ureterectasis. No visible ureterolithiasis. No nephrolithiasis identified. 4. Other nonurgent, nonemergent, chronic, postoperative, and age related findings as detailed in text above. COMMENTS: Consistent with the [employer]'s Incidental Findings Committee white paper (J Am Wally Radiol 2018): Any incidental renal lesion less than 1 cm or classified as too small to characterize, or any incidental cystic renal lesion characterized as simple-appearing, is likely benign. No follow-up imaging is recommended for these lesions per consensus recommendations based on imaging criteria. Radiation Dose CTDIVOL = (mGy): DLP = 1477.32 (mGy-cm)
--- NOTE | 2021-01-17 23:41 | PM.HP ---
Providers/Chief Complaint Admitting Physician: Cb Martinez MD Chief Complaint: CONFUSED History of Present Illness Randall Bay is a 80 year old male with a past medical history of Alzheimer's dementia, bladder cancer, urinary retention, history of UTIs, history of left testicular hematoma who presents [facility] due to fevers, tachycardia, altered mentation. Currently patient is alert, he knows his name, but does not follow commands, does not answer questions appropriately, most of the history was obtained from the jail. According to jail staff patient has Alzheimer's dementia, he is alert to person, not sometimes to place, he does sometimes recognize family members and workers, he ambulates with assistance, can feed himself, he has received both Covid vaccinations, no recent falls, no recent hospitalizations. According to jail staff, this morning he started to be more confused than normal, he had high fevers as high as 102, and also had tachycardia, heart rates in the 140s, thus he was sent to [facility]. Here he is found to be hypotensive blood pressure 80s over 54, temp 100.1, white blood cell count over 27,000, CRP 140, UA with evidence of UTI, hospitalist team was called for admission. Review of Systems General: Reports: ROS unobtainable due to mental status Medications/Allergies Home Medications Medication Instructions Recorded Confirmed Last Taken Type acetaminophen See Rx Instructions .ROUTE .COMPLEX 10/18/19 10/18/19 10/18/19 02:45 History 650 mg aspirin [Aspir-81] 81 mg PO DAILY 10/18/19 10/18/19 10/18/19 07:01 History donepezil 10 mg PO BEDTIME 10/18/19 10/18/19 10/17/19 History furosemide [Lasix] 20 mg PO DAILY 10/18/19 10/18/19 10/18/19 07:01 History memantine 10 mg PO BID 10/18/19 10/18/19 10/18/19 07:01 History metoprolol tartrate 12.5 mg PO BID 10/18/19 10/18/19 10/18/19 07:01 History trazodone 50 mg PO BEDTIME 10/18/19 10/18/19 10/17/19 History Allergies Allergy/AdvReac Type Severity Reaction Status Date / Time cephalexin [From Keflex] Allergy Unknown Verified 01/17/21 20:16 PFSH Acute PFSH: Medical History Dementia History of bladder cancer History of hydronephrosis Hypertension Surgical History History of bladder surgery radical cystoprostatectomy with ileal neobladder performed at [facility] in 2003 History of open reduction and internal fixation (ORIF) procedure L tibia History of orchiectomy, unilateral Left, 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 Social History Smoking and tobacco status: former smoker Vitals/I&O/Wt Last Vital Signs Temp 100.1 F H 01/17/21 20:16 Resp 16 01/17/21 20:16 BP 80/54 01/17/21 20:16 01/17/21 01/17/21 01/18/21 14:59 22:59 06:59 Intake Total 1000 / 1000 50 / 1050 Balance 1000 / 1000 50 / 1050 Weight last 48 hrs Weight 78.925 kg Physical Exam Const: COMMON NORMALS: no acute distress EXAM LIMITATIONS: altered mental status GENERAL APPEARANCE: cooperative ORIENTATION/CONSCIOUSNESS: Yes awake, Yes oriented to person and Yes confused; not oriented to place and not oriented to time HENMT: COMMON NORMALS: normocephalic HEAD & SCALP: normocephalic Eye: COMMON NORMALS: Equal, round and reactive pupils present and EOMs intact bilaterally GENERAL EYE: appearance normal, both eyes and all related structures PUPIL: Yes Equal, round and reactive pupils present Neck/C-Spine: COMMON NORMALS: no lymphadenopathy THYROID: Thyroid normal Lymph: LYMPHATIC: no lymphadenopathy noted Resp: COMMON NORMALS: normal respiratory effort, No retractions, No use of accessory muscles and clear to auscultation bilaterally AUSCULTATION: clear to auscultation bilaterally Cardio: COMMON NORMALS: regular rate, regular rhythm, S1 normal heart sound present, S2 normal heart sound present, No gallops present (Cardio), No clicks present (Cardio) and No murmurs present (Cardio) RATE: regular rate RHYTHM: regular rhythm HEART SOUNDS: S1 normal heart sound present and S2 normal heart sound present GI: COMMON NORMALS: Normal to inspection, nondistended, normoactive bowel sounds present, Soft to palpation, non-tender and No hepatosplenomegaly present PALPATION: Yes Soft to palpation and Yes No hepatosplenomegaly present : BLADDER/KIDNEY EXAM: Yes CVA tenderness on the right Extremity: COMMON NORMALS: normal to inspection and no pedal edema Data : 01/17/21 20:20 01/17/21 20:20 Micro: Microbiology 01/17/21 21:35 Blood Culture - Preliminary Blood SPECIMEN COLLECTED 01/17/21 21:30 Blood Culture - Preliminary Blood SPECIMEN COLLECTED A&P Assessment and plan (1) Acute encephalopathy: -Sepsis criteria met, febrile, blood pressures 80s over 54, leukocytosis 27.2, CRP 140, lactic acid 1.1, UA with evidence of UTI -Currently blood pressures 110 over 80s, has received sepsis bolus, normal sinus rhythm, on room air Plan: -Admit to general medical floors -Keep n.p.o. -Continue Primaxin -Follow urine cultures, blood cultures -Place [place] due to history of urinary retention -CT scan of the abdomen pelvis to evaluate for possible obstructive uropathy -According to jail staff he is a DNR -Lovenox for DVT prophylaxis Status: Acute (2) Sepsis: Status: Acute Qualifiers: Sepsis acute organ dysfunction status: unspecified Sepsis type: sepsis due to unspecified organism Qualified Code(s): A41.9 - Sepsis, unspecified organism (3) Acute cystitis: Status: Acute Qualifiers: Hematuria presence: without hematuria Qualified Code(s): N30.00 - Acute cystitis without hematuria (4) Hypertension: Status: Acute (5) Dementia: Status: Acute Attestations Medical Necessity Statement*: Patient requires hospitalization for acute encephalopathy secondary to UTI, with sepsis, inpatient, greater than 2 midnights Coding Level of Care Code Acute Resource Conservationist for [facility] Diagnoses Acute encephalopathy G93.40 Sepsis A41.9 Sepsis acute organ dysfunction status: unspecified Sepsis type: sepsis due to unspecified organism Acute cystitis N30.00 Hematuria presence: without hematuria Hypertension I10 Dementia F03.90
[2021-01-18] VITALS (11 sets, daily range): BP systolic 100–140; BP diastolic 57–73; PULSE 84–100; RESP 13–20; TEMP 36.8–37.3; O2SAT 95–100; BMI 25.0
[2021-01-18] MEDS: enoxaparin 40 mg/0.4 mL Syringe SUBCUT (00:41)
[2021-01-18] MEDS: sodium chloride 0.9% 1,000 ML 75 ML IV ×2 (00:42→20:10)
[2021-01-18 00:57] LABS: Procalcitonin 0.39 ng/mL (0-0.5); Thyroid Stimulating Hormone 0.23 uIU/mL (0.27-4.20)
[2021-01-18] MEDS: pantoprazole 40 mg SDV IVP (01:19)
--- NOTE | 2021-01-18 02:15 | ECG_ITS ---
[facility] Test Date: 2021-01-18 Pat Name: Randall Bay Department: Room: 251 Gender: Male Ux Lead: : 1940 Requested By: Zita Berger Order Number: [id number] Galeano MD: Diana Murrieta M.D. Measurements Intervals Jones Rate: 90 P: 74 UT: 195 QRS: -40 QRSD: 133 T: 24 QT: 370 QTc: 455 Interpretive Statements SINUS RHYTHM LEFT AXIS DEVIATION [QRS AXIS < -30] RIGHT BUNDLE BRANCH BLOCK [120+ ms QRS DURATION, UPRIGHT V1, 40+ ms S IN I/aVL/V4/V5/V6] Compared to ECG 01/17/2021 22:02:29 No significant changes Electronically Signed On 01-19-2021 19:22:49 CDT by Diana Murrieta M.D. [id number]
[2021-01-18 02:22] LABS: Basophils # 0.1 10^3/uL (0.0-0.1); Basophils % 0.3 %; Eosinophils # 0.1 10^3/uL (0.0-0.8); Eosinophils % 0.2 %; Hematocrit 40.8 % (42.0-52.0); Hemoglobin 13.3 g/dL (11.7-16.6); Lymphocytes # 2.2 10^3/uL (0.8-4.8); Lymphocytes % 9.4 %; Mean Corpuscular HGB Conc 32.6 g/dL (30.0-36.0); Mean Corpuscular Hemoglobin 28.9 pg (28.0-34.0); Mean Corpuscular Volume 88.5 fl (80-94); Mean Platelet Volume 9.3 fL (7.4-10.4); Monocytes % 8.8 %; Neutrophils # 18.47 10^3/uL (1.8-7.7); Neutrophils % 80.9 %; Nucleated Red Blood Cells % 0 %; Platelet Count 223 10^3/cmm (130-400); Red Blood Count 4.61 10^6/uL (4.1-5.3); Red Cell Distribution Width 12.6 % (12.1-15.1); White Blood Count 22.8 10^3/uL (4.0-10.0)
[2021-01-18 02:43] LABS: Alanine Aminotransferase 6 U/L (0-41); Albumin Level 2.9 g/dL (3.5-5.2); Alkaline Phosphatase 91 IU/L (40-130); Aspartate Amino Transferase 8 U/L (0-40); Blood Urea Nitrogen 17 mg/dL (8-23); Calcium 7.5 mg/dL (8.5-10.5); Carbon Dioxide 26 mmol/L (22-29); Chloride 110 mmol/L (98-107); Globulin 2.8 g/dL (1.3-4.6); Glucose 101 mg/dL (65-115); Magnesium 1.7 mg/dL (1.7-2.3); Osmolality Calculated 300 mOsm/kg (285-295); Phosphorus 3.4 mg/dL (2.5-4.5); Sodium 144 mmol/L (136-145); Total Bilirubin 1.3 mg/dL (0.15-1.2); Total Protein 5.7 g/dL (6.6-8.7)
[2021-01-18 02:44] LABS: Troponin 5 6HR 21.82 ng/L (0-15)
[2021-01-18 02:45] LABS: Troponin 5 6HR Delta -0.18 ng/L (0-12)
[2021-01-18 02:55] LABS: NT Pro B Type Natriuretic Pept 1752 pg/mL (0-450)
[2021-01-18] MEDS: aspirin 81 mg EC Tablet PO (08:04)
--- NOTE | 2021-01-18 15:27 | PM.PN ---
Subjective Subjective: Interval history: Patient was seen and examined this morning, he is difficult to communicate with, due to baseline dementia, but he has remained afebrile, WBC count is trending down. CT abdomen and pelvis done. Medications: Reviewed: Yes Vitals/I&O/Wt Last Vital Signs Temp 98.5 F 01/18/21 12:00 Pulse 84 01/18/21 12:00 Resp 16 01/18/21 12:00 BP 118/73 01/18/21 12:00 Pulse Ox 95 01/18/21 12:00 01/18/21 01/18/21 01/18/21 06:59 14:59 22:59 Intake Total 1400 / 2400 1050 / 1050 Balance 1400 / 2400 1050 / 1050 Weight last 48 hrs Weight 85.956 kg Weight 78.925 kg Physical Exam Narrative: EXAM NARRATIVE: Alert and awake HENMT: COMMON NORMALS: normocephalic and atraumatic HEAD & SCALP: normocephalic and atraumatic Resp: COMMON NORMALS: clear to auscultation bilaterally EFFORT & INSPECTION: Yes symmetric chest movement AUSCULTATION: clear to auscultation bilaterally Cardio: COMMON NORMALS: regular rate, regular rhythm, S1 normal heart sound present, S2 normal heart sound present, No gallops present (Cardio), No murmurs present (Cardio), No rub (Cardio) and Peripheral pulses 2+ throughout RATE: regular rate RHYTHM: regular rhythm HEART SOUNDS: S1 normal heart sound present and S2 normal heart sound present PERIPHERAL PULSES: Peripheral pulses 2+ throughout GI: COMMON NORMALS: Normal to inspection, nondistended, normoactive bowel sounds present, Soft to palpation, non-tender, No hepatosplenomegaly present and no masses AUSCULTATION: Yes normoactive bowel sounds PALPATION: Yes Soft to palpation and Yes No hepatosplenomegaly present RECTAL EXAM: Yes deferred Extremity: COMMON NORMALS: no clubbing, cyanosis or edema and no pedal edema Data : 01/18/21 02:14 01/18/21 02:14 Micro: Microbiology 01/17/21 21:35 Blood Culture - Preliminary Blood SPECIMEN COLLECTED 01/17/21 21:30 Blood Culture - Preliminary Blood SPECIMEN COLLECTED A&P Assessment and plan (1) Sepsis: Sepsis likely secondary to UTI : CT abdomen and pelvis without contrast: Is suggestive of evolving diverticular abscess. Amorphous ill-defined mass in the potential space between the distal left psoas and iliacus muscle. This structure contains pockets of emphysema. This does not have the appearance of an organized abscess. Potential immature abscess. Blood culture Urine culture lactic acid 1.[address] findings were discussed with surgery: They are of the opinion that currently we will continue with IV antibiotic management. Status: Acute Qualifiers: Sepsis acute organ dysfunction status: unspecified Sepsis type: sepsis due to unspecified organism Qualified Code(s): A41.9 - Sepsis, unspecified organism (2) Acute encephalopathy: Status: Acute (3) Acute cystitis: Status: Acute Qualifiers: Hematuria presence: without hematuria Qualified Code(s): N30.00 - Acute cystitis without hematuria (4) Hypertension: Status: Acute (5) Dementia: Status: Acute Attestations Medical Necessity Statement*: Patient needs to be in hospital for management of sepsis. Coding Level of Care Code Acute Guest Service Aide for [facility] Diagnoses Sepsis A41.9 Sepsis acute organ dysfunction status: unspecified Sepsis type: sepsis due to unspecified organism Acute encephalopathy G93.40 Acute cystitis N30.00 Hematuria presence: without hematuria Hypertension I10 Dementia F03.90
--- NOTE | 2021-01-18 15:44 | PC.NURSE ---
Pt has removed several IV's today that have been replaced. Pt is alert to self and knows he is in a place so he can get better. Dr. Russell was notified. Orders to be expected. Will continue to monitor.
[2021-01-19] VITALS (9 sets, daily range): BP systolic 107–136; BP diastolic 59–78; PULSE 75–100; RESP 16–17; TEMP 36.7–37.3; O2SAT 97–99
[2021-01-19] MEDS: enoxaparin 40 mg/0.4 mL Syringe SUBCUT ×2 (00:10→23:25)
[2021-01-19] MEDS: pantoprazole 40 mg SDV IVP (00:28)
[2021-01-19] MEDS: ondansetron 2 mg/ML SDV 2 mL 4 MG IVP (01:01)
[2021-01-19 05:18] LABS: Basophils % 0.2 %; Eosinophils # 0.1 10^3/uL (0.0-0.8); Eosinophils % 0.4 %; Lymphocytes # 1.7 10^3/uL (0.8-4.8); Lymphocytes % 9.4 %; Mean Corpuscular HGB Conc 32.4 g/dL (30.0-36.0); Mean Corpuscular Hemoglobin 28.6 pg (28.0-34.0); Mean Corpuscular Volume 88.3 fl (80-94); Mean Platelet Volume 9.9 fL (7.4-10.4); Monocytes # 1.6 10^3/uL (0.2-0.9); Monocytes % 8.7 %; Neutrophils # 14.46 10^3/uL (1.8-7.7); Neutrophils % 80.7 %; Nucleated Red Blood Cells % 0 %; Platelet Count 250 10^3/cmm (130-400); Red Blood Count 4.19 10^6/uL (4.1-5.3); Red Cell Distribution Width 12.5 % (12.1-15.1); White Blood Count 17.9 10^3/uL (4.0-10.0)
[2021-01-19 05:39] LABS: Alanine Aminotransferase < 5 U/L (0-41); Albumin Level 2.8 g/dL (3.5-5.2); Alkaline Phosphatase 82 IU/L (40-130); Anion Gap 14.8 (5-19); Aspartate Amino Transferase 9 U/L (0-40); Blood Urea Nitrogen 14 mg/dL (8-23); Carbon Dioxide 22 mmol/L (22-29); Chloride 112 mmol/L (98-107); Creatinine Clr Calc Pharmacy 85.7525; Globulin 2.5 g/dL (1.3-4.6); Glucose 80 mg/dL (65-115); Magnesium 1.8 mg/dL (1.7-2.3); Osmolality Calculated 299 mOsm/kg (285-295); Phosphorus 2.2 mg/dL (2.5-4.5); Potassium 3.8 mmol/L (3.5-5.1); Sodium 145 mmol/L (136-145); Total Bilirubin 0.6 mg/dL (0.15-1.2); Total Protein 5.3 g/dL (6.6-8.7)
[2021-01-19] MEDS: aspirin 81 mg EC Tablet PO (08:04)
--- NOTE | 2021-01-19 15:20 | PC.CHAP ---
Pastoral Care Encounter/Spiritual Assessment Type of Contact [] Declined insole and outsole preparer visit [] Patient/Family/Request visit [] Outpatient visit [xx] Follow-up visit [] Physician referral [] Code/Alert [xx] Routine visit [] Staff referral [] Actively dying [] Patient sleeping [] Family support [] [] Out of room [] Palliative care [] [] Receiving care in room [] Pre-surgical visit [] Trauma [] Long length of stay [] ICU visit [] Other: Relational/Emotional Strength [xx] Patient feels connected with others/family/visitors/staff [] Distress [] Loneliness/isolation [] Abandonment Spirituality of Patient [xx] Person of Samantha [] Attends Pentecostalism of their Samantha [xx] Believes in Prayer [] Reads Bible or Yazidi materials [] There are Spiritual issues to be addressed Manager Of Drilling Interventions [xx] Prayer [xx] Active listening [xx] Non-anxious presence [] Spiritual/emotional support [] Crisis/trauma care [] Spiritual counseling [] Bereavement support [] Provided bereavement packet [] Provided Bible/devotional materials [] Provided toy/stuffed animal, coloring book to patient or family member [] Provided Communion [] Anointing/[place] [] Salvation [xx] Completed spiritual assessment [] Other: Impact on Illness or Injury [] Angry [] Fearful [] Anxious [] Often cries [] Exhaustion [] Unable to work [] Unable to attend restorationism [] Unable to walk/stand [] Unable to read [] Unable to drive [] Unable to eat/drink [] Unable to sleep [] Unable to be with family [] Patient intubated [] Other: Summary Patient very hard of hearing. He stated he feels better today. He would like to know more about what is happening to him and when he can leave. Manager Of Drilling suggested he ask to speak to his doctor about that. Time spent with patient 5 minutes
--- NOTE | 2021-01-19 18:05 | P.PN_ITS ---
Subjective Subjective: Interval history: Patient was seen and examined this morning,has been less cooperative, he has ripped off his IV lines quite a few times.Haldol has been started. WBC count is continued to improved, no fever other vitals and labs have been stable. Medications: Reviewed: Yes Vitals/I&O/Wt Last Vital Signs Temp 98.1 F 01/19/21 11:15 Pulse 86 01/19/21 15:36 Resp 16 01/19/21 15:36 BP 124/73 01/19/21 15:36 Pulse Ox 98 01/19/21 15:36 01/19/21 01/19/21 01/19/21 06:59 14:59 22:59 Intake Total 1390 / 2640 220 / 220 Balance 1390 / 2640 220 / 220 Weight last 48 hrs Weight 85.956 kg Weight 78.925 kg Physical Exam Narrative: EXAM NARRATIVE: Alert and awake HENMT: COMMON NORMALS: normocephalic and atraumatic HEAD & SCALP: normocephalic and atraumatic Resp: COMMON NORMALS: clear to auscultation bilaterally EFFORT & INSPECTION: Yes symmetric chest movement AUSCULTATION: clear to auscultation bilaterally Cardio: COMMON NORMALS: regular rate, regular rhythm, S1 normal heart sound present, S2 normal heart sound present, No gallops present (Cardio), No murmurs present (Cardio), No rub (Cardio) and Peripheral pulses 2+ throughout RATE: regular rate RHYTHM: regular rhythm HEART SOUNDS: S1 normal heart sound present and S2 normal heart sound present PERIPHERAL PULSES: Peripheral pulses 2+ throughout GI: COMMON NORMALS: Normal to inspection, nondistended, normoactive bowel sounds present, Soft to palpation, non-tender, No hepatosplenomegaly present and no masses AUSCULTATION: Yes normoactive bowel sounds PALPATION: Yes Soft to palpation and Yes No hepatosplenomegaly present RECTAL EXAM: Yes deferred Extremity: COMMON NORMALS: no clubbing, cyanosis or edema and no pedal edema Data : 01/19/21 04:12 01/19/21 04:12 Micro: Microbiology 01/17/21 22:30 Urine Culture - Preliminary Urine,Clean Catch 01/17/21 21:30 Blood Culture - Preliminary Blood NEGATIVE TO DATE 01/17/21 21:35 Blood Culture - Preliminary Blood NEGATIVE TO DATE A&P Assessment and plan (1) Sepsis: Sepsis likely secondary to UTI : CT abdomen and pelvis without contrast: Is suggestive of evolving diverticular abscess. Amorphous ill-defined mass in the potential space between the distal left psoas and iliacus muscle. This structure contains pockets of emphysema. This does not have the appearance of an organized abscess. Potential immature abscess. Blood culture: NTD Urine culture lactic acid 1.[address] findings were discussed with surgery: They are of the opinion that currently we will continue with IV antibiotic management. Status: Acute Qualifiers: Sepsis acute organ dysfunction status: unspecified Sepsis type: sepsis due to unspecified organism Qualified Code(s): A41.9 - Sepsis, unspecified organism (2) Acute encephalopathy: Status: Acute (3) Acute cystitis: Status: Acute Qualifiers: Hematuria presence: without hematuria Qualified Code(s): N30.00 - Acute cystitis without hematuria (4) Hypertension: Status: Acute (5) Dementia: Status: Acute Attestations Medical Necessity Statement*: Patient needs to be in hospital for management of sepsis. Coding Level of Care Code Acute Seed Cone Picker for [facility] Diagnoses Sepsis A41.9 Sepsis acute organ dysfunction status: unspecified Sepsis type: sepsis due to unspecified organism Acute encephalopathy G93.40 Acute cystitis N30.00 Hematuria presence: without hematuria Hypertension I10 Dementia F03.90
[2021-01-20] VITALS: BP 94/55; PULSE 94; RESP 17; TEMP 37.1; O2SAT 98
[2021-01-20 04:00] VITALS: BP 122/67; PULSE 88; RESP 17; TEMP 36.9; O2SAT 95
[2021-01-20 05:10] LABS: Basophils % 0.3 %; Eosinophils # 0.2 10^3/uL (0.0-0.8); Eosinophils % 1.7 %; Hematocrit 36.6 % (42.0-52.0); Lymphocytes # 1.5 10^3/uL (0.8-4.8); Lymphocytes % 11.1 %; Mean Corpuscular HGB Conc 32.8 g/dL (30.0-36.0); Mean Corpuscular Hemoglobin 28.5 pg (28.0-34.0); Mean Corpuscular Volume 86.9 fl (80-94); Mean Platelet Volume 9.7 fL (7.4-10.4); Monocytes # 1.4 10^3/uL (0.2-0.9); Monocytes % 10.5 %; Neutrophils # 10.12 10^3/uL (1.8-7.7); Neutrophils % 75.8 %; Nucleated Red Blood Cells % 0 %; Platelet Count 275 10^3/cmm (130-400); Red Blood Count 4.21 10^6/uL (4.1-5.3); Red Cell Distribution Width 12.3 % (12.1-15.1); White Blood Count 13.4 10^3/uL (4.0-10.0)
[2021-01-20 05:35] LABS: Anion Gap 15.7 (5-19); Blood Urea Nitrogen 14 mg/dL (8-23); Carbon Dioxide 22 mmol/L (22-29); Chloride 108 mmol/L (98-107); Potassium 3.7 mmol/L (3.5-5.1); Sodium 142 mmol/L (136-145)
[2021-01-20 05:36] LABS: Alanine Aminotransferase < 5 U/L (0-41); Albumin Level 2.8 g/dL (3.5-5.2); Alkaline Phosphatase 89 IU/L (40-130); Aspartate Amino Transferase 10 U/L (0-40); Creatinine Clr Calc Pharmacy 85.7525; Globulin 2.5 g/dL (1.3-4.6); Glucose 76 mg/dL (65-115); Magnesium 1.9 mg/dL (1.7-2.3); Osmolality Calculated 293 mOsm/kg (285-295); Phosphorus 2.1 mg/dL (2.5-4.5); Total Bilirubin 0.5 mg/dL (0.15-1.2); Total Protein 5.3 g/dL (6.6-8.7)
[2021-01-20 07:42] VITALS: BP 110/59; PULSE 81; RESP 18; TEMP 36.8; O2SAT 95
[2021-01-20] MEDS: aspirin 81 mg EC Tablet PO (08:08)
--- NOTE | 2021-01-20 08:30 | PC.SOCIAL ---
IMM update IMM updated with patient's . Copy left at bedside. Verbalized an understanding. Initialled, dated, timed and placed in chart.
--- NOTE | 2021-01-20 11:01 | P.DS_ITS ---
Discharge Providers Date of Admission: 01/17/21 23:03 Date of Discharge: January 20, 2021 Attending Provider at Admission: Cb Martinez MD Attending Provider at Discharge: Fernandez Russell MD Diagnoses at Discharge Discharge Diagnosis (1) Sepsis: Status: Resolved Qualifiers: Sepsis acute organ dysfunction status: unspecified Sepsis type: sepsis due to unspecified organism Qualified Code(s): A41.9 - Sepsis, unspecified organism (2) Acute encephalopathy: Status: Resolved (3) Acute cystitis: Status: Resolved Qualifiers: Hematuria presence: without hematuria Qualified Code(s): N30.00 - Acute cystitis without hematuria (4) Hypertension: Status: Acute (5) Dementia: Status: Acute Reason for Visit Reason for Visit: CONFUSED Hospital Course Hospital Course Randall Bay is a 80 year old male with a past medical history of Alzheimer's dementia, bladder cancer, urinary retention, history of UTIs, history of left testicular hematoma who presented to [facility] due to fevers, tachycardia, altered mentation. He was admitted for the management of sepsis secondary to UTI: CT abdomen and pelvis without contrast: was suggestive of evolving diverticular abscess. Amorphous ill-defined mass in the potential space between the distal left psoas and iliacus muscle. This structure contains pockets of emphysema. This does not have the appearance of an organized abscess. Potential immature abscess.CT findings were discussed with surgery: They are of the opinion that currently we will continue with IV antibiotic management. Blood culture: NTD , Urine culture: Negative , lactic acid 1.1, Procalcitonin was normal. Patient continued to remain afebrile, he was hemodynamically stable, no urinary retention was noted, he is incontinent but makes good urine. Acute metabolic encephalopathy has resolved, with above medical management, CT head without contrast was negative. Patient responded well to the above medical management and is being discharged to the nursing facility. Patient will be discharged on p.o. levofloxacin for additional 5 days. Physical Exam Narrative: EXAM NARRATIVE: Alert and awake HENMT: COMMON NORMALS: normocephalic and atraumatic HEAD & SCALP: normocephalic and atraumatic Resp: COMMON NORMALS: clear to auscultation bilaterally EFFORT & INSPECTION: Yes symmetric chest movement AUSCULTATION: clear to auscultation bilaterally Cardio: COMMON NORMALS: regular rate, regular rhythm, S1 normal heart sound present, S2 normal heart sound present, No gallops present (Cardio), No murmurs present (Cardio), No rub (Cardio) and Peripheral pulses 2+ throughout RATE: regular rate RHYTHM: regular rhythm HEART SOUNDS: S1 normal heart sound present and S2 normal heart sound present PERIPHERAL PULSES: Peripheral pulses 2+ throughout GI: COMMON NORMALS: Normal to inspection, nondistended, normoactive bowel sounds present, Soft to palpation, non-tender, No hepatosplenomegaly present and no masses AUSCULTATION: Yes normoactive bowel sounds PALPATION: Yes Soft to palpation and Yes No hepatosplenomegaly present RECTAL EXAM: Yes deferred Extremity: COMMON NORMALS: no clubbing, cyanosis or edema and no pedal edema Discharge Data Data Completed and Pending: Completed Studies During Hospitalization Category Date Time Status CT head wo con* 7 0450 Urgent Cat Scan 01/17/21 20:[address] kidney stone 7 4176 Stat Cat Scan 01/17/21 23:30 Completed XR chest 1V luis f ble [id number] Urgent Exams 01/17/21 20:14 Completed Pending at discharge Category Date Time Status Blood Culture Sta t Lab 01/17/21 21:35 Results Labs from last 24 hours 01/20/21 01/20/21 04:21 04:21 WBC 13.4 H RBC 4.21 Hgb 12.0 Hct 36.6 L MCV 86.9 MCH 28.5 MCHC 32.8 RDW 12.3 Plt Count 275 MPV 9.7 Neut % (Auto) 75.8 Lymph % (Auto) 11.1 [place] % (Auto) 10.5 Eos % (Auto) 1.7 Baso % (Auto) 0.3 Neut # (Auto) 10.12 H Lymph # (Auto) 1.5 [place] # (Auto) 1.4 H Eos # (Auto) 0.2 Baso # (Auto) 0.0 Nucleated RBC % (a uto) 0 Nucleated RBCs # 0.0 Sodium 142 Potassium 3.7 Chloride 108 H Carbon Dioxide 22 Anion Gap 15.7 BUN 14 Creatinine 0.8 GFR Calculation Not Reportable Glucose 76 Calculated Osmolal ity 293 Calcium 8.0 L Phosphorus 2.1 L Magnesium 1.9 Total Bilirubin 0.5 AST 10 ALT < 5 Alkaline Phosphata se 89 Total Protein 5.3 L Albumin 2.8 L Globulin 2.5 Vitals: Last Vital Signs Temp 98.2 F 01/20/21 07:42 Pulse 81 01/20/21 07:42 Resp 18 01/20/21 07:42 BP 110/59 01/20/21 07:42 Pulse Ox 95 01/20/21 07:42 Discharge Plan Discharge Patient Disposition: Home Condition: Stable Prescriptions: New levofloxacin 500 mg tablet 500 mg PO DAILY 5 Days Qty: 5 RF: 0 Continued acetaminophen 325 mg Tablet See Rx Instructions .ROUTE .COMPLEX RF: 0 trazodone 50 mg Tablet 50 mg PO BEDTIME@1999 RF: 0 donepezil 10 mg Tablet 10 mg PO BEDTIME@1999 RF: 0 furosemide [Lasix] 20 mg Tablet 20 mg PO DAILY@0800 RF: 0 memantine 10 mg Tablet 10 mg PO BID@799,1999 RF: 0 metoprolol tartrate 25 mg Tablet 12.5 mg PO BID@799,1999 RF: 0 Klor-Con 10 10 mEq Tablet Extended Release 10 meq PO DAILY@0800 RF: 0 aspirin 81 mg Tablet,Delayed Release (Dr/Ec) 81 mg PO DAILY@0800 RF: 0 Milk of Magnesia 400 mg/5 mL Suspension 400 mg PO DAILY PRN (Reason: SEE PHARAMCY COMMENT) RF: 0 Discharge Orders: Discharge Order (Routine); Ordered 01/20/21 Ordered By: Fernandez Russell Discharge Diet: Soft Mechanical Discharge Activity: Increase activity as tolerated Patient Instructions: Levofloxacin (By mouth), Urinary Tract Infection in Men ( DC), Sepsis (DC), Opioid Safety Discharge Attestations Time Spent in Discharge Care*: less than 30 min Specific Discharge Activities: educating patient, educating and/or supporting family/caregiver, discussing with pcp/other providers, discussing with regulatory affairs manager/social workers/dc planners, documenting/other paperwork and evaluating patient/reviewing data Status at Discharge: Cognitive status at discharge: moderately impaired cognition , Behavioral status at discharge: cooperative , Overall status at discharge: patient is back to baseline Quality Metrics Clinical Quality Measures During this hospital stay, did patient experience: None Coding Level of Care Code Acute Chg FW DC note Exam Detailed Diagnoses Sepsis A41.9 Sepsis acute organ dysfunction status: unspecified Sepsis type: sepsis due to unspecified organism Acute encephalopathy G93.40 Acute cystitis N30.00 Hematuria presence: without hematuria Hypertension I10 Dementia F03.90
[2021-01-20 11:28] VITALS: BP 141/65; PULSE 81; RESP 17; TEMP 36.7; O2SAT 96
--- NOTE | 2021-01-20 11:54 | PC.NURSE ---
Assisted patient out of bed to chair. Minimum assistance required. Chair alarm in place call light in reach. Patient able to identify himself, but not able to state date of or date. Bed changed and patient bathed with bath wipes.
--- NOTE | 2021-01-20 12:12 | PC.NURSE ---
Report called to [facility] to Eunice HERNANDEZ. Patient is clean and dry and ready to be transported.
[2021-01-20 14:24] VITALS: BP 141/65; PULSE 81; RESP 17; TEMP 36.7; O2SAT 96
--- NOTE | 2021-01-20 14:25 | PC.NURSE ---
Discharge Note Patient discharged to [facility] via [facility] transport accompanied by [facility] kamryn. Discharge instructions reviewed with patient and/or indirect sales representative. Mobile pharmacy medications and/or prescriptions provided. Belongings/home medications returned.
--- NOTE | 2021-01-22 14:08 | PC.SOCIAL ---
discharge follow up call made, spoke with Milady, patients treatment nurse, his nurse wasn't available. she reports patient is almost back to normal patient is taking medications as prescribed. she denies questions or concerns.
== END 2021-01-20 15:41 | disposition skilled nursing facility (03) | DRG 689 ==
LOC: ER 23:02 → MEDSURG 23:17
PROVIDERS: Admitting Provider Family Medicine; Emergency Provider Emergency Medicine; Visit Provider Internal Medicine
DX: N30.00 Acute cystitis without hematuria (principal); G93.41 Metabolic encephalopathy; N13.30 Unspecified hydronephrosis; G30.9 Alzheimer's disease, unspecified; F02.80 Dementia in other diseases classified elsewhere, unspecified severity, without behavioral disturbance, psychotic disturbance, mood disturbance, and anxiety; Z87.440 Personal history of urinary (tract) infections; Z85.51 Personal history of malignant neoplasm of bladder; I10 Essential (primary) hypertension; Z87.891 Personal history of nicotine dependence; M62.89 Other specified disorders of muscle; I95.9 Hypotension, unspecified; R32 Unspecified urinary incontinence
CPT/HCPCS: 36415; 70450; 71045; 74176; 80053; 81001; 83605; 83735; 83880; 84100; 84145; 84443; 84484; 85025; 86140; 87040; 87086; 87426; 93005; 94664; 96365; 96367; 96372; 99285; C9113; J0743; J1650; J2405; J2543; J3370; J7030; J7050

== ENCOUNTER 2021-02-12 10:14 | Inpatient (IN) | payer MEDICARE, MEDICAID, SELFPAY ==
[2021-02-12] VITALS (8 sets, daily range): BP systolic 92–128; BP diastolic 68–92; PULSE 67–91; RESP 16–24; TEMP 36.6–36.7; O2SAT 97–98; BMI 26.4
--- NOTE | 2021-02-12 11:07 | XR_ITS ---
WS: [id number] PORTABLE CHEST HISTORY: dyspnea/cough COMPARISON: 01/17/2021 Scar or subsegmental atelectasis at the RIGHT lung base. No pneumonia. No pulmonary congestion. No pl eural effusion or pneumothorax. Cardiac size: Normal. Mediastinum/Aorta: Mild atherosclerosis aorta. High riding RIGHT humeral head. Bilateral moderate AC joint arthritis. XR/XR chest 1V portable [id number] IMPRESSION: No acute cardiopulmonary disease.
--- NOTE | 2021-02-12 11:07 | CT_ITS ---
WS: [id number] CT ABDOMEN AND PELVIS WITH CONTRAST HISTORY: Abdominal pain and dementia. TECHNIQUE: Imaging performed of the abdomen and pelvis with IV contrast. Single phase imaging of the abdomen. Coronal and sagittal reformats are submitted. All CT scans at [facility] use at [facility] one of these dose optimization techniques: automated exposure control; mA and/or kV adjustment per patient size (includes targeted exams where dose is matched to clinical indication); or iterative re construction. IV CONTRAST: Visipaque 320; 95 mL IV. Oral contrast: No DLP: 1466.31 mGy.cm COMPARISON: 01/17/2021 Lower thorax: Lung bases are clear. Heart is normal size. No hiatal hernia. Liver/biliary system: Normal size with numerous cysts. Gallbladder: Status post cholecystectomy. Pancreas: Normal size pancreas and pancreatic duct. No adjacent inflammation. Spleen: Normal size spleen. No mass or infarct. Adrenal glands: Normal. Right kidney: Severe RIGHT hydronephrosis. There are additional small parapelvic cysts and renal cyst s. Markedly tortuous ectatic RIGHT ureter similar to the prior examinations. Ureter crosses the midli ne. Left kidney: Mild hydronephrosis with cortical thinning. Cortical cyst. Tortuous ureter. Similar to t he prior studies. Aorta: Mild atherosclerosis with no aneurysm. Lymphadenopathy: None. Free fluid: None. GI tract: Mild distention of small bowel loops with fluid. No obstruction is evident. Abdominal wall: Unremarkable abdominal wall. No hernia. Pelvis: There is a focal abscess which has been previously described within the LEFT iliacus muscle. There is mild peripheral enhancement and a few pockets of air. Abscess measures 3.8 x 2.9 cm. This a bscess has moderately decreased in size since 01/17/2021 and there is less inflammation. Bones: Moderate spondylitic changes within the spine. CT/CT abdomen pelvis w con* [id number] IMPRESSION: 1. Small abscess measuring 3.8 x 2.9 cm centered in the LEFT iliacus muscle hinojosa s decreased in size since 01/17/2021 with less adjacent inflammation and decreas e in size of the inflammatory changes. 2. Chronic known bilateral hydronephrosis. 3. Hepatic cysts. 4. Prior cholecystectomy.
--- NOTE | 2021-02-12 11:08 | ECG_ITS ---
[facility] Test Date: 2021-02-12 Pat Name: Randall Bay Department: Room: Gender: Male Cyber Special Agent: : [id number] Requested By: Jamal Salgado Order Number: [id number] Froylan MD: Rick George M.D. Measurements Intervals Hydes Rate: 82 P: 89 CO: 183 QRS: -50 QRSD: 129 T: 54 QT: 412 QTc: 481 Interpretive Statements SINUS RHYTHM RIGHT BUNDLE BRANCH BLOCK [120+ ms QRS DURATION, UPRIGHT V1, 40+ ms S IN I/aVL/V4/V5/V6] LEFT ANTERIOR FASCICULAR BLOCK [QRS AXIS <= -45, QR IN I, RS IN II] PROBABLE SEPTAL MYOCARDIAL INFARCTION , PROBABLY OLD [35 ms Q WAVE IN V1/V2] Compared to ECG 01/18/2021 04:24:17 Left anterior fascicular block now present Myocardial infarct finding now present Left-axis deviation no longer present Electronically Signed On 02-12-2021 14:23:27 CDT by Rick George M.D. [email or web address]
[2021-02-12 11:37] LABS: Basophils # 0.1 10^3/uL (0.0-0.1); Basophils % 0.4 %; Eosinophils # 0.3 10^3/uL (0.0-0.8); Eosinophils % 1.6 %; Hematocrit 45.9 % (42.0-52.0); Hemoglobin 15.3 g/dL (11.7-16.6); Lymphocytes # 1.8 10^3/uL (0.8-4.8); Lymphocytes % 11.4 %; Mean Corpuscular HGB Conc 33.3 g/dL (30.0-36.0); Mean Corpuscular Hemoglobin 28.3 pg (28.0-34.0); Mean Platelet Volume 9.3 fL (7.4-10.4); Monocytes # 1.4 10^3/uL (0.2-0.9); Monocytes % 8.9 %; Neutrophils # 12.11 10^3/uL (1.8-7.7); Neutrophils % 75.5 %; Nucleated Red Blood Cells % 0 %; Platelet Count 414 10^3/cmm (130-400); Red Cell Distribution Width 12.5 % (12.1-15.1); White Blood Count 16.1 10^3/uL (4.0-10.0)
[2021-02-12 12:04] LABS: Lactic Sepsis W/Reflex 2.6 mmol/L (0.5-2.2)
[2021-02-12 12:17] LABS: Troponin(5th) Baseline 77 ng/L (0-15)
[2021-02-12 12:20] LABS: Alanine Aminotransferase 23 U/L (0-41); Albumin Level 3.6 g/dL (3.5-5.2); Alkaline Phosphatase 175 IU/L (40-130); Anion Gap 19.2 (5-19); Aspartate Amino Transferase 20 U/L (0-40); Blood Urea Nitrogen 20 mg/dL (8-23); Calcium 8.8 mg/dL (8.5-10.5); Carbon Dioxide 26 mmol/L (22-29); Chloride 96 mmol/L (98-107); Creatine Phosphokinase 16 U/L (39-308); Globulin 3.1 g/dL (1.3-4.6); Glucose 81 mg/dL (65-115); Osmolality Calculated 286 mOsm/kg (285-295); Potassium 4.2 mmol/L (3.5-5.1); Sodium 137 mmol/L (136-145); Total Bilirubin 0.4 mg/dL (0.15-1.2); Total Protein 6.7 g/dL (6.6-8.7)
--- NOTE | 2021-02-12 12:32 | PC.NURSE ---
THIS NURSE BROUGHT PATIENT A WARM BLANKET. PATIENT HAD PULLED IV FROM LEFT AC. BANDAID APPLIED TO PATIENT.
[2021-02-12] MEDS: iodixanol 320 mg/mL 100mL Btl IV (12:54)
[2021-02-12 13:12] LABS: Add Urine Microscopic? YES; Bilirubin Urine Neg (Negative); Blood Urine 3+ (Negative); Glucose Urine UA Norm (Normal); Ketones Urine Negative (Negative); Leukocyte Esterase Urine 2+ (Negative); Nitrate Urine Negative (Negative); Protein Urine 1+ (Negative); Urine Appearance Hazy (CLEAR); Urine Color Yellow (Yellow); Urobilinogen Urine Norm (Negative); pH Urine 5 (5-7)
[2021-02-12 13:23] LABS: Reflex Lactate Order REFLEX LACTIC ORDERD
[2021-02-12 13:26] LABS: Bacteria Urine 2+ /hpf; WBC Urine TOO NUMEROUS TO CNT /hpf (0-5)
[2021-02-12 13:27] LABS: Add Urine Culture? Yes
--- NOTE | 2021-02-12 13:42 | ED_ITS ---
HPI - General Adult General: Chief complaint: General Medical Stated complaint: L ARM PAIN, VOMIT X 2 Time Seen by Provider: 02/12/21 10:18 History of Present Illness: HPI narrative: Patient is an 80-year-old male who presents today via EMS. EMS reports some vomiting and left arm pain reported to them by the assisted. When asked the patient says his only complaint is pressure in the lower abdomen. The patient shows significant confusion and is alert only to person. When asked specifically about the left arm pain and vomiting the patient denies both. The left arm is normal to examination. The patient reports no history of similar symptoms. The patient has a history of bladder cancer, urinary retention, cystitis, and hydronephrosis. Onset (ago): day(s) Location: abdomen Severity: mild Quality: other (Pressure) Pain Consistency: intermittent Relieving factors: none Review of Systems General: Reports: ROS unobtainable due to mental status PFSH ED PFSH: Medical History (Updated 02/17/21 @ 00:00 by ) Dementia History of bladder cancer History of hydronephrosis Hypertension Troponin level elevated Surgical History (Updated 02/12/21 @ 17:03 by Dwight Baker MD) History of bladder surgery radical cystoprostatectomy [place] [facility] [place] History of open reduction and internal fixation (ORIF) procedure L tibia History of orchiectomy, unilateral Left, 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 Social History Smoking and tobacco status: former smoker Physical Exam Const: COMMON NORMALS: no acute distress GENERAL APPEARANCE: cooperative and comfortable ORIENTATION/CONSCIOUSNESS: Yes awake HENMT: COMMON NORMALS: normocephalic, atraumatic, hearing grossly normal bilaterally, external ears normal, EAC's normal, TM's normal bilaterally, Normal nasal mucous membranes and turbinates present, moist oral mucous membranes and oropharynx normal HEAD & SCALP: normocephalic and atraumatic NOSE: Normal nasal mucous membranes and turbinates present EXTERNAL EAR: Yes external ears normal EXTERNAL AUDITORY CANAL: EAC's normal TYMPANIC MEMBRANE: TM's marlena l bilaterally Neck/C-Spine: COMMON NORMALS: no JVD Resp: COMMON NORMALS: normal respiratory effort, No retractions, No use of accessory muscles and clear to auscultation bilaterally AUSCULTATION: clear to auscultation bilaterally Cardio: COMMON NORMALS: no JVD, regular rate, regular rhythm and No murmurs present (Cardio) RATE: regular rate RHYTHM: regular rhythm GI: COMMON NORMALS: Soft to palpation and No hepatosplenomegaly present AUSCULTATION: Yes normoactive bowel sounds PALPATION: Yes Soft to palpation, No Tenderness to palpation present (GI), No Guarding due to palpation present (GI) and Yes No hepatosplenomegaly present Extremity: COMMON NORMALS: normal to inspection, capillary refill normal, no clubbing, cyanosis or edema, no calf tenderness and no pedal edema Skin: COMMON NORMALS: no rashes or lesions noted GENERAL SKIN EXAM: no rashes or lesions noted Course Vital Signs: Vital signs: Vital Signs Temperature 98.1 F 02/16/21 18:30 Pulse Rate 74 02/16/21 18:30 Respiratory Rate 17 02/16/21 18:30 Blood Pressure 114/70 02/16/21 18:30 Pulse Oximetry 98 02/16/21 18:30 MDM - General Adult MDM Narrative: Medical decision making narrative: Patient is a history of bladder cancer and dementia. Has hydronephrosis and cystitis Antonieta go ahead and admit discussed with Dr. Baker. Lab Data: Labs: Lab Results 02/12/21 02/12/21 02/12/21 11:28 11:28 11:28 WBC 16.1 10^3/uL H 10 ^3/uL (4.0-10.0) RBC 5.40 10^6/uL H 10 ^6/uL (4.1-5.3) Hgb 15.3 g/dL g/dL (11.7-16.6) Hct 45.9 % % (42.0-52.0) MCV 85.0 fl fl (80-94) MCH 28.3 pg pg (28.0-34.0) MCHC 33.3 g/dL g/dL (30.0-36.0) RDW 12.5 % % (12.1-15.1) Plt Count 414 10^3/cmm H 10 ^3/cmm (130-400) MPV 9.3 fL fL (7.4-10.4) Neut % (Auto) 75.5 % % Lymph % (Auto) 11.4 % % [place] % (Auto) 8.9 % % Eos % (Auto) 1.6 % % Baso % (Auto) 0.4 % % Neut # (Auto) 12.11 10^3/uL H 1 0^3/uL (1.8-7.7) Lymph # (Auto) 1.8 10^3/uL 10^3/ uL (0.8-4.8) [place] # (Auto) 1.4 10^3/uL H 10^ 3/uL (0.2-0.9) Eos # (Auto) 0.3 10^3/uL 10^3/ uL (0.0-0.8) Baso # (Auto) 0.1 10^3/uL 10^3/ uL (0.0-0.1) Nucleated RBC % (a uto) 0 % % Nucleated RBCs # 0.0 /100WBC /100W BC Sodium 137 mmol/L mmol/L (136-145) Potassium 4.2 mmol/L mmol/L (3.5-5.1) Chloride 96 mmol/L L mmol/ L (98-107) Carbon Dioxide 26 mmol/L mmol/L (22-29) Anion Gap 19.2 H (5-19) BUN 20 mg/dL mg/dL (8-23) Creatinine 1.2 mg/dL mg/dL (0.7-1.2) GFR Calculation Not Reportable Glucose 81 mg/dL mg/dL (65-115) Calculated Osmolal ity 286 mOsm/kg mOsm/ kg (285-295) Lactic Acid 2.6 mmol/L H mmol /L (0.5-2.2) Calcium 8.8 mg/dL mg/dL (8.5-10.5) Total Bilirubin 0.4 mg/dL mg/dL (0.15-1.2) AST 20 U/L U/L (0-40) ALT 23 U/L U/L (0-41) Alkaline Phosphata se 175 IU/L H IU/L (40-130) Creatine Kinase 16 U/L L U/L (39-308) Troponin T Baselin e Total Protein 6.7 g/dL g/dL (6.6-8.7) Albumin 3.6 g/dL g/dL (3.5-5.2) Globulin 3.1 g/dL g/dL (1.3-4.6) Urine Color Urine Appearance Urine pH Ur Specific Gravit y Urine Protein Urine Glucose (UA) Urine Ketones Urine Blood Urine Nitrate Urine Bilirubin Urine Urobilinogen Ur Leukocyte Yajaira ase Urine RBC Urine WBC Ur Squamous Epith Cells Amorphous Sediment Urine Bacteria 02/12/21 02/12/21 11:28 13:00 WBC RBC Hgb Hct MCV MCH MCHC RDW Plt Count MPV Neut % (Auto) Lymph % (Auto) [place] % (Auto) Eos % (Auto) Baso % (Auto) Neut # (Auto) Lymph # (Auto) [place] # (Auto) Eos # (Auto) Baso # (Auto) Nucleated RBC % (a uto) Nucleated RBCs # Sodium Potassium Chloride Carbon Dioxide Anion Gap BUN Creatinine GFR Calculation Glucose Calculated Osmolal ity Lactic Acid Calcium Total Bilirubin AST ALT Alkaline Phosphata se Creatine Kinase Troponin T Baselin e 77 ng/L H ng/L (0-15) Total Protein Albumin Globulin Urine Color Yellow (Yellow) Urine Appearance Hazy A (CLEAR) Urine pH 5 (5-7) Ur Specific Gravit y 1.010 (1.005-1.030) Urine Protein 1+ H (Negative) Urine Glucose (UA) Norm (Normal) Urine Ketones Negative (Negative) Urine Blood 3+ H (Negative) Urine Nitrate Negative (Negative) Urine Bilirubin Neg (Negative) Urine Urobilinogen Norm mg/dL mg/dL (Negative) Ur Leukocyte Yajaira ase 2+ H (Negative) Urine RBC 5-10 /hpf H /hpf (0-2) Urine WBC Too numerous to c nt /hpf H /hpf (0-5) Ur Squamous Epith Cells None /hpf /hpf (0-5) Amorphous Sediment Not Reportable Urine Bacteria 2+ /hpf H /hpf (NONE) Discharge Plan Discharge Patient Disposition: Admitted As Inpatient Admit Provider: Dwight Baker Clinical Impression: Cystitis, Hydronephrosis of right kidney, History of bladder cancer, Dementia, Hypertension Condition: Stable Discharge Diet: Regular Discharge Activity: Resume usual activity Coding Level of Care Code ED Seismic Engineer for [facility] Fwd Exam Comprehensive
--- NOTE | 2021-02-12 13:51 | PC.NURSE ---
THIS NURSE MONITORED PATIENT. PATIENT RESTING IN BED EYES CLOSED. PATIENT CONNECTED TO VICE PRESIDENT OF INSTRUCTION.
[2021-02-12] MEDS: ciprofloxacin 400 MG/200 ML PREMIX 200 MG IV (14:20)
--- NOTE | 2021-02-12 15:02 | PC.PHAR ---
PT IS FROM [facility] [phone] NURSE FROM [facility] STATES THE PT HAD ALL HIS AM MEDICATIONS-
--- NOTE | 2021-02-12 15:40 | PC.NURSE ---
THIS NURSE WENT TO REPOSITION PATIENT. PATIENT HAD REMOVED CATHETER OUT OF ARM. CIPRO STOPPED, APPROXIMATELY 150 ML GIVEN. PROVIDER NOTIFIED.
--- NOTE | 2021-02-12 16:55 | PM.HP ---
Providers/Chief Complaint Admitting Physician: Dwight Baker Chief Complaint: L ARM PAIN, VOMIT X 2 History of Present Illness Pleasant 80-year-old gentleman with dementia, [facility] resident recently admitted and treated for sepsis with question of left iliac us abscess, but with no growth on blood culture, urine culture, reported no urine retention seen at that time. Was brought in from [facility] due to vomiting, lower abdominal pressure. With finding of leukocytosis 16.1, lactic acidosis 2.6. Afebrile, without tachycardia. Awake, alert, but unable to provide history. Denies any complaints currently. Urine studies with 5-10 RBC, too numerous to count WBCs. Salvador catheter placed on the floor with 600 mL of cloudy urine drained. Review of Systems Narrative: limited ROS due to dementia. Obtained in part from ER staff. Const: Denies: chills, body aches or malaise Eyes: Denies: change in vision ENMT: Denies: throat pain Card: Denies: chest pain Resp: Denies: dyspnea or productive cough GI: Denies: abdominal pain or nausea : Denies: flank pain Musc: Denies: back pain Skin/Breast: Denies: rash Neuro: Denies: confusion Medications/Allergies Home Medications Medication Instructions Recorded Confirmed Last Taken Type acetaminophen 650 mg PO Q6H PRN 10/18/19 02/12/21 02/06/21 History donepezil 10 mg PO BEDTIME@10/18/19 02/12/21 02/11/21 History furosemide [Lasix] 20 mg PO DAILY@10/18/19 02/12/21 02/12/21 07:04 History memantine 10 mg PO BID@10/18/19 02/12/21 02/12/21 07:04 History metoprolol tartrate 12.5 mg PO BID@,10/18/19 02/12/21 02/12/21 07:04 History trazodone 50 mg PO BEDTIME@10/18/19 02/12/21 02/11/21 History aspirin 81 mg PO DAILY@01/18/21 02/12/21 02/12/21 07:01 History magnesium hydroxide [Milk of 30 ml PO DAILY PRN 01/18/21 02/12/21 Unknown History Magnesia] potassium chloride [Klor-Con 10] 10 meq PO DAILY@07 01/18/21 02/12/21 02/12/21 07:04 History acetaminophen [Tylenol] 650 mg PO BEDTIME 02/12/21 02/12/21 02/11/21 History amoxicillin-pot clavulanate 1 tab PO BID 02/12/21 02/12/21 02/12/21 07:04 History [Augmentin] loperamide 2 - 4 mg PO Q6H PRN 02/12/21 02/12/21 02/10/21 History Allergies Allergy/AdvReac Type Severity Reaction Status Date / Time cephalexin [From Keflex] Allergy Unknown Verified 02/12/21 15:02 PFSH Acute PFSH: Medical History (Updated 02/12/21 @ 17:03 by Dwight Baker MD) Dementia History of bladder cancer History of hydronephrosis Hypertension Surgical History (Updated 02/12/21 @ 17:03 by Dwight Baker MD) History of bladder surgery radical cystoprostatectomy with ileal neobladder performed at [facility] in 2003 History of open reduction and internal fixation (ORIF) procedure L tibia History of orchiectomy, unilateral Left, 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 Social History Smoking and tobacco status: former smoker Vitals/I&O/Wt Last Vital Signs Temp 98.0 F 02/12/21 10:19 Pulse 84 02/12/21 13:51 Resp 20 H 02/12/21 13:51 BP 103/69 02/12/21 13:51 Pulse Ox 97 02/12/21 11:53 02/12/21 02/12/21 02/12/21 06:59 14:59 22:59 Intake Total 200 / 200 Balance 200 / 200 Weight last 48 hrs Weight 90.718 kg Weight 90.718 kg Physical Exam Const: COMMON NORMALS: no acute distress and alert; negative for patient oriented x3 GENERAL APPEARANCE: cooperative ORIENTATION/CONSCIOUSNESS: Yes awake HENMT: COMMON NORMALS: oropharynx normal Neck/C-Spine: COMMON NORMALS: no JVD Resp: COMMON NORMALS: normal respiratory effort and clear to auscultation bilaterally AUSCULTATION: clear to auscultation bilaterally Cardio: COMMON NORMALS: no JVD, regular rhythm, S1 normal heart sound present, S2 normal heart sound present and No murmurs present (Cardio) RHYTHM: regular rhythm HEART SOUNDS: S1 normal heart sound present and S2 normal heart sound present GI: COMMON NORMALS: Normal to inspection, nondistended, normoactive bowel sounds present and Soft to palpation PALPATION: Yes Soft to palpation and Yes Tenderness to palpation present (GI) (Mildly tender L side) Extremity: COMMON NORMALS: no joint enlargement and no pedal edema Neuro: COMMON NORMALS: patient oriented x3 and moves all extremities Skin: COMMON NORMALS: no rashes or lesions noted GENERAL SKIN EXAM: no rashes or lesions noted Urinary Catheter Management^: Salvador: Cath Placed During This Visit: yes Urinary Catheter Date of Insertion: 02/12/21 Urinary Catheter Time of Insertion: 16:32 Data : 02/12/21 11:28 02/12/21 11:28 A&P Assessment and plan (1) Cystitis: Received Cipro. Continue Cipro empirically for now given symptoms, although if no growth on culture discontinue to biotics early, symptoms may be secondary to urinary retention as well. On previous admission no growth on urine cultures. Collect urine cultures. Maintain Salvador catheter decompression. Status: Acute (2) Psoas abscess, left: Blood cultures, vancomycin, Cipro as above. Persistent abscess, although with improvement. I do not see that abscess was aspirated last admission. Appears was a discussion with surgery, with recommendation for medical treatment. He returned to [facility] with additional 5 days of Levaquin. Cardiology is gone for today, will try to reach out tomorrow to see if this can be aspirated, although size is pretty small, and may be do well with extended course of antibiotics. Status: Acute (3) Urinary retention: Maintain Salvador. Empirically treat possible cystitis. Start Flomax. Follow-up with urology. Status: Acute (4) Hydronephrosis: Chronic hydronephrosis, with history of urinary bladder cancer, with bladder excision, neobladder creation. Status: Acute Additional A&P Information Dementia HTN DW granddaughter Attestations Medical Necessity Statement*: Admission of over 2 midnights will be needed for assessment management of cystitis, urinary retention in the setting of prior bladder resection, neobladder creation, chronic hydronephrosis, iliopsoas persistent abscess. Coding Level of Care Code Acute Nursery Hand for Chg Fwd Exam Comprehensive Diagnoses Cystitis N30.90 Psoas abscess, left K68.12 Urinary retention R33.9 Hydronephrosis N13.30
[2021-02-12 19:54] LABS: Troponin 5 6HR 89.75 ng/L (0-15)
[2021-02-12 19:58] LABS: Troponin 5 6HR Delta 12.75 ng/L (0-12)
[2021-02-12 20:38] LABS: Lactic Acid level (Lactate) 1.1 mmol/L (0.5-2.2)
[2021-02-12] MEDS: tamsulosin 0.4 mg Capsule PO (20:50)
[2021-02-12] MEDS: aspirin 325 mg EC Tablet PO (20:50)
[2021-02-12] MEDS: clopidogrel 300 mg Tablet PO (20:50)
[2021-02-12] MEDS: enoxaparin 100 mg/mL Syringe 90 MG SUBCUT (20:50)
[2021-02-12] MEDS: lactated ringers 1,000 ML 75 ML IV (20:51)
[2021-02-12] MEDS: vancomycin 1,500 MG/300 ML PIGGYBACK 200 MG IV (20:56)
[2021-02-13] VITALS: BP 110/61; PULSE 92; RESP 18; TEMP 36.8; O2SAT 97
[2021-02-13] MEDS: ciprofloxacin 400 MG/200 ML PREMIX 200 MG IV ×2 (02:04→17:27)
[2021-02-13 04:00] VITALS: BP 100/65; PULSE 155; RESP 20; TEMP 36.8; O2SAT 94
[2021-02-13 06:10] LABS: Basophils # 0.1 10^3/uL (0.0-0.1); Basophils % 0.4 %; Eosinophils # 0.3 10^3/uL (0.0-0.8); Hematocrit 41.5 % (42.0-52.0); Hemoglobin 13.7 g/dL (11.7-16.6); Lymphocytes # 2.2 10^3/uL (0.8-4.8); Lymphocytes % 17.6 %; Mean Corpuscular Volume 84.9 fl (80-94); Mean Platelet Volume 9.6 fL (7.4-10.4); Monocytes # 1.7 10^3/uL (0.2-0.9); Monocytes % 13.6 %; Neutrophils # 7.89 10^3/uL (1.8-7.7); Neutrophils % 64.5 %; Nucleated Red Blood Cells % 0 %; Platelet Count 304 10^3/cmm (130-400); Red Blood Count 4.89 10^6/uL (4.1-5.3); Red Cell Distribution Width 12.3 % (12.1-15.1); White Blood Count 12.2 10^3/uL (4.0-10.0)
[2021-02-13 06:38] LABS: Alanine Aminotransferase 15 U/L (0-41); Alkaline Phosphatase 125 IU/L (40-130); Anion Gap 14.6 (5-19); Aspartate Amino Transferase 14 U/L (0-40); Blood Urea Nitrogen 13 mg/dL (8-23); Calcium 8.2 mg/dL (8.5-10.5); Carbon Dioxide 23 mmol/L (22-29); Chloride 104 mmol/L (98-107); Glucose 83 mg/dL (65-115); Osmolality Calculated 285 mOsm/kg (285-295); Potassium 3.6 mmol/L (3.5-5.1); Sodium 138 mmol/L (136-145); Total Bilirubin 0.4 mg/dL (0.15-1.2)
[2021-02-13 08:00] VITALS: BP 104/61; PULSE 122; RESP 19; TEMP 36.6; O2SAT 93
[2021-02-13] MEDS: enoxaparin 100 mg/mL Syringe 90 MG SUBCUT (08:44)
[2021-02-13] MEDS: aspirin 81 mg EC Tablet PO (08:44)
--- NOTE | 2021-02-13 10:48 | PC.CHAP ---
Pastoral Care Encounter/Spiritual Assessment Type of Contact [] Declined cost control specialist visit [] Patient/Family/Request visit [] Outpatient visit [] Follow-up visit [] Physician referral [] Code/Alert [x] Routine visit [] Staff referral [] Actively dying [] Patient sleeping [] Family support [] [] Out of room [] Palliative care [] [] Receiving care in room [] Pre-surgical visit [] Trauma [] Long length of stay [] ICU visit [] Other: Relational/Emotional Strength [] Patient feels connected with others/family/visitors/staff [] Distress [] Loneliness/isolation [] Abandonment Spirituality of Patient [x] Person of Samantha [] Attends Uatsdin of their Samantha [x] Believes in Prayer [] Reads Bible or Hinduism materials [] There are Spiritual issues to be addressed Divider Operator Interventions [x] Prayer [] Active listening [] Non-anxious presence [] Spiritual/emotional support [] Crisis/trauma care [] Spiritual counseling [] Bereavement support [] Provided bereavement packet [] Provided Bible/devotional materials [] Provided toy/stuffed animal, coloring book to patient or family member [] Provided Communion [] Anointing/Welches [] Salvation [] Completed spiritual assessment [] Other: Impact on Illness or Injury [] Angry [] Fearful [] Anxious [] Often cries [] Exhaustion [] Unable to work [] Unable to attend [employer] [] Unable to walk/stand [] Unable to read [] Unable to drive [] Unable to eat/drink [] Unable to sleep [] Unable to be with family [] Patient intubated [] Other: Summary A good man, confident though ill, trying to get well. Time spent with patient 2 minutes
[2021-02-13 12:00] VITALS: BP 100/70; PULSE 100; RESP 18; TEMP 36.6; O2SAT 96
--- NOTE | 2021-02-13 14:17 | P.PN_ITS ---
Subjective Subjective: Interval history: Overnight noted rising troponin with positive delta, was started on ACS protocol, this morning he denies any complaints. Denies any chest pain or pressure. Denies trouble breathing. States he is doing all right. He is hungry. Vitals/I&O/Wt Last Vital Signs Temp 97.8 F 02/13/21 08:00 Pulse 122 H 02/13/21 08:00 Resp 19 H 02/13/21 08:00 BP 104/61 02/13/21 08:00 Pulse Ox 93 02/13/21 08:00 02/12/21 02/13/21 02/13/21 22:59 06:59 14:59 Intake Total 620 / 620 300 / 920 1000 / 1000 Output Total 750 / 750 Balance -130 / -130 300 / 170 1000 / 1000 Weight last 48 hrs Weight 75.523 kg Weight 90.718 kg Weight 90.718 kg Physical Exam Const: COMMON NORMALS: no acute distress, patient oriented x3 and alert GENERAL APPEARANCE: cooperative and comfortable ORIENTATION/CONSCIOUSNESS: Yes awake OTHER: Pleasant, communicative and interactive, although provides limited review of systems when asked question but question, unable to provide history. HENMT: COMMON NORMALS: oropharynx normal Neck/C-Spine: COMMON NORMALS: no JVD Resp: COMMON NORMALS: normal respiratory effort and clear to auscultation bilaterally AUSCULTATION: clear to auscultation bilaterally Cardio: COMMON NORMALS: no JVD, regular rhythm, S1 normal heart sound present, S2 normal heart sound present and No murmurs present (Cardio) RHYTHM: regular rhythm HEART SOUNDS: S1 normal heart sound present and S2 normal heart sound present GI: COMMON NORMALS: Normal to inspection, nondistended, normoactive bowel sounds present and Soft to palpation PALPATION: Yes Soft to palpation and Yes Tenderness to palpation present (GI) (Mildly tender L side) Extremity: COMMON NORMALS: no joint enlargement and no pedal edema Neuro: COMMON NORMALS: patient oriented x3 and moves all extremities SENSORIUM/ORIENTATION: Yes alert Skin: COMMON NORMALS: no rashes or lesions noted GENERAL SKIN EXAM: no rashes or lesions noted Urinary Catheter Management^: Salvador: Cath Placed During This Visit: yes Reason for Continuing Indwelling Catheter: Acute Urinary Retention or Obstruction Urinary Catheter Date of Insertion: 02/12/21 Urinary Catheter Time of Insertion: 16:32 Data : 10/12/21 05:41 02/13/21 05:41 Micro: Microbiology 02/12/21 13:00 Urine Culture - Preliminary Urine,Clean Catch 02/12/21 18:50 Blood Culture - Preliminary Blood SPECIMEN COLLECTED 02/12/21 18:40 Blood Culture - Preliminary Blood SPECIMEN COLLECTED A&P Assessment and plan (1) Cystitis: Some improvement in leukocytosis. Noted with tachycardia. Follow-up urine cultures. Maintain Salvador catheter decompression. Status: Acute (2) Psoas abscess, left: Monitor symptoms as below for troponin ovation, tonight will hold anticoagulation, aspirin in anticipation of aspiration of psoas abscess for culture. Blood cultures, vancomycin, Cipro as above. Persistent abscess, although with improvement. I do not see that abscess was aspirated last admission. Appears was a discussion with surgery, with recommendation for medical treatment. He returned to senior care with additional 5 days of Levaquin. Cardiology is gone for today, will try to reach out tomorrow to see if this can be aspirated, although size is pretty small, and may be do well with extended course of antibiotics. On update I am told there is no possibility for the procedure tomorrow with anesthesia not unavailable until . Continue medications for now. Status: Acute (3) Troponin level elevated: Troponin level with elevation, positive delta, but continues to deny any chest pain pressure or discomfort. No trouble breathing. He is awake, alert, interactive, in good spirits. Unable to provide history, but denies any discomfort. Obtain EKG, monitor on telemetry. Obtain TTE. Was started on anticoagulation, aspirin. Follow-up studies. At this time suspicion for ACS is low. Status: Acute (4) Urinary retention: Maintain Salvador. Empirically treat possible cystitis. Start Flomax. Follow-up with urology. Status: Acute (5) Hydronephrosis: Chronic hydronephrosis, with history of urinary bladder cancer, with bladder excision, neobladder creation. Status: Acute Additional A&P Information Dementia HTN DW granddaughter Attestations Medical Necessity Statement*: Continue admission for cyst management of psoas abscess, complicated cystitis with history of neobladder, assessment of troponin elevation, tachycardia. Coding Level of Care Code Acute Sound Art Instructor for [facility] Fwd Exam Comprehensive Diagnoses Cystitis N30.90 Psoas abscess, left K68.12 Troponin level elevated R77.8 Urinary retention R33.9 Hydronephrosis N13.30
[2021-02-13] MEDS: vancomycin 1,500 MG/300 ML PIGGYBACK 200 MG IV (14:57)
[2021-02-13 20:00] VITALS: BP 136/72; PULSE 70; RESP 19; TEMP 36.4; O2SAT 95
[2021-02-13] MEDS: tamsulosin 0.4 mg Capsule PO (20:48)
[2021-02-13] MEDS: enoxaparin 80 mg/0.8 mL Syringe 70 MG SUBCUT (21:55)
[2021-02-13 22:00] VITALS: PULSE 83
[2021-02-14] VITALS (8 sets, daily range): BP systolic 110–138; BP diastolic 66–75; PULSE 82–92; RESP 18–20; TEMP 36.4–36.9; O2SAT 93–97
[2021-02-14] MEDS: ciprofloxacin 400 MG/200 ML PREMIX 200 MG IV ×2 (05:20→17:02)
[2021-02-14 09:02] LABS: Basophils # 0.1 10^3/uL (0.0-0.1); Basophils % 0.7 %; Eosinophils # 0.3 10^3/uL (0.0-0.8); Eosinophils % 2.8 %; Hematocrit 37.5 % (42.0-52.0); Hemoglobin 12.2 g/dL (11.7-16.6); Lymphocytes % 18.7 %; Mean Corpuscular HGB Conc 32.5 g/dL (30.0-36.0); Mean Corpuscular Hemoglobin 28.1 pg (28.0-34.0); Mean Corpuscular Volume 86.4 fl (80-94); Mean Platelet Volume 9.8 fL (7.4-10.4); Monocytes # 1.1 10^3/uL (0.2-0.9); Monocytes % 10.2 %; Neutrophils # 6.93 10^3/uL (1.8-7.7); Neutrophils % 65.8 %; Nucleated Red Blood Cells % 0 %; Platelet Count 311 10^3/cmm (130-400); Red Blood Count 4.34 10^6/uL (4.1-5.3); Red Cell Distribution Width 12.4 % (12.1-15.1); White Blood Count 10.5 10^3/uL (4.0-10.0)
[2021-02-14] MEDS: enoxaparin 80 mg/0.8 mL Syringe 70 MG SUBCUT (09:02)
[2021-02-14] MEDS: vancomycin 1,500 MG/300 ML PIGGYBACK 200 MG IV (09:02)
[2021-02-14 09:27] LABS: Anion Gap 18.8 (5-19); Blood Urea Nitrogen 11 mg/dL (8-23); Calcium 7.9 mg/dL (8.5-10.5); Carbon Dioxide 20 mmol/L (22-29); Chloride 104 mmol/L (98-107); Glucose 109 mg/dL (65-115); Osmolality Calculated 288 mOsm/kg (285-295); Potassium 3.8 mmol/L (3.5-5.1); Sodium 139 mmol/L (136-145)
--- NOTE | 2021-02-14 20:17 | USCV_ITS ---
[place] Age: 80 Gender: M : 1940 Exam Date: 02/14/2021 10:56 Ordering Phys: Lara Marion MD Technologist: ZACH Exam Location: [facility] [place] Indication: SOB BP: / HR: Rhythm: Sinus Technical Quality: Very technically difficult study MEASUREMENTS (Male / Female) Normal Values FINDINGS Left Ventricle Right Ventricle Right Atrium Left Atrium Mitral Valve Aortic Valve Tricuspid Valve Pulmonic Valve Pericardium Aorta CONCLUSIONS 1. There were no echocardiographic windows. 2. Alternate modality of assessment of left ventricle systolic function is recommended. Diana Murrieta MD (Electronically Signed) Final Date: 14 February 2021 13:12 S
--- NOTE | 2021-02-14 20:36 | P.PN_ITS ---
Subjective Subjective: Interval history: Confused, got entangled in his covers. I helped him straighten them out. Denies chest pain or pressure. No trouble breathing. Vitals/I&O/Wt Last Vital Signs Temp 97.5 F L 02/14/21 15:45 Pulse 86 02/14/21 15:45 Resp 20 H 02/14/21 15:45 BP 134/66 02/14/21 15:45 Pulse Ox 96 02/14/21 15:45 02/14/21 02/14/21 02/14/21 06:59 14:59 22:59 Intake Total 500 / 500 200 / 700 Output Total 600 / 1050 350 / 350 Balance -600 / 570 150 / 150 200 / 350 Weight last 48 hrs Weight 75.977 kg Weight 75.977 kg Weight 75.523 kg Physical Exam Const: COMMON NORMALS: no acute distress, patient oriented x3 and alert GENERAL APPEARANCE: cooperative and comfortable ORIENTATION/CONSCIOUSNESS: Yes awake and Yes confused OTHER: Pleasant, communicative, unable to provide history. HENMT: COMMON NORMALS: oropharynx normal Neck/C-Spine: COMMON NORMALS: no JVD Resp: COMMON NORMALS: normal respiratory effort and clear to auscultation bilaterally AUSCULTATION: clear to auscultation bilaterally Cardio: COMMON NORMALS: no JVD, regular rhythm, S1 normal heart sound present, S2 normal heart sound present and No murmurs present (Cardio) RHYTHM: regular rhythm HEART SOUNDS: S1 normal heart sound present and S2 normal heart sound present GI: COMMON NORMALS: Normal to inspection, nondistended, normoactive bowel sounds present and Soft to palpation PALPATION: Yes Soft to palpation and Yes Tenderness to palpation present (GI) (Mildly tender L side) Extremity: COMMON NORMALS: no joint enlargement and no pedal edema Neuro: COMMON NORMALS: patient oriented x3 and moves all extremities SENSORIUM/ORIENTATION: Yes alert Skin: COMMON NORMALS: no rashes or lesions noted GENERAL SKIN EXAM: no rashes or lesions noted Urinary Catheter Management^: Salvador: Cath Placed During This Visit: yes Reason for Continuing Indwelling Catheter: Acute Urinary Retention or Obstruction Urinary Catheter Date of Insertion: 02/12/21 Urinary Catheter Time of Insertion: 16:32 Data : 02/14/21 06:55 02/14/21 06:55 Micro: Microbiology 02/12/21 13:00 Urine Culture - Final Urine,Clean Catch 02/12/21 18:50 Blood Culture - Preliminary Blood NEGATIVE TO DATE 02/12/21 18:40 Blood Culture - Preliminary Blood NEGATIVE TO DATE A&P Assessment and plan (1) Psoas abscess, left: Plan for IR aspiration of left psoas abscess. Lovenox and aspirin held. N.p.o. after midnight. Blood cultures so far negative, vancomycin, Cipro as above. Status: Acute (2) Cystitis: Some improvement in leukocytosis. Noted with tachycardia. Unrevealing urine culture. Maintain Salvador catheter decompression. Status: Acute (3) Troponin level elevated: Without any chest pain. Echocardiogram unfortunately unrevealing. EKG was not suggestive of acute ND. Doubt ACS, possibly some myocardial injury secondary to demand ischemia. Depending on goals of care, consideration may be given to stress testing. Status: Acute (4) Urinary retention: Maintain Salvador. Empirically treat possible cystitis. Started on Flomax. Follow-up with urology. Status: Acute (5) Hydronephrosis: Chronic hydronephrosis, with history of urinary bladder cancer, with bladder excision, neobladder creation. Status: Acute Additional A&P Information Dementia HTN Attestations Medical Necessity Statement*: Continue admission for aspiration of persistent left psoas abscess. Coding Level of Care Code Acute Paper Folding Machine Operator for Ivonne [facility] Diagnoses Psoas abscess, left K68.12 Cystitis N30.90 Troponin level elevated R77.8 Urinary retention R33.9 Hydronephrosis N13.30
[2021-02-14] MEDS: tamsulosin 0.4 mg Capsule PO (21:02)
[2021-02-15] VITALS (9 sets, daily range): BP systolic 95–138; BP diastolic 55–83; PULSE 64–93; RESP 16–22; TEMP 36.1–37.1; O2SAT 94–99
--- NOTE | 2021-02-15 | CT_ITS ---
WS: [id number] CT-GUIDED abscess aspiration LEFT iliac is muscle. HISTORY: ASPIRATION OF LEFT iliac muscle FLUID DLP: 417.[address] scans at [facility] use at least one of these dose optimization techniques: automated e xposure control; mA and/or kV adjustment per patient size (includes targeted exams where dose is matc hed to clinical indication); or iterative reconstruction. Prior imaging studies are reviewed including the history and physical and medications. Anesthesia sed ation was utilized during this procedure as the patient may not be cooperative. The complex collection with a small amount of air is identified within the LEFT iliac is muscle. Ther e is less fluid component today. This abscess continues to improve but there is a small amount of air persisting. Skin is cleansed with ChloraPrep and anesthetized with lidocaine. An 18-gauge coaxial ne edle is inserted the central portion of the iliac is abscess. Very small amount of low attenuation no anibal centrally. No significant aspiration is identified. There is a small amount of bloody aspirate wh ich will be sent for culture and sensitivity. Patient tolerated the procedure very well. CT/CT guided aspiration [id number] IMPRESSION: 1. Uncomplicated CT-guided aspiration of the LEFT iliacus muscle abscess. Lisa y little aspirate was obtained. This does appear to be a treated abscess with a few small residual foci of air. The aspirate will be sent for culture and sens itivity. 2. No complications.
[2021-02-15] MEDS: vancomycin 1,500 MG/300 ML PIGGYBACK 200 MG IV ×2 (02:28→19:55)
[2021-02-15] MEDS: ciprofloxacin 400 MG/200 ML PREMIX 200 MG IV ×2 (04:56→16:18)
[2021-02-15 06:09] LABS: Basophils # 0.1 10^3/uL (0.0-0.1); Basophils % 0.6 %; Eosinophils # 0.3 10^3/uL (0.0-0.8); Eosinophils % 2.6 %; Hemoglobin 12.9 g/dL (11.7-16.6); Lymphocytes # 2.1 10^3/uL (0.8-4.8); Mean Corpuscular HGB Conc 33.1 g/dL (30.0-36.0); Mean Corpuscular Volume 84.6 fl (80-94); Mean Platelet Volume 9.4 fL (7.4-10.4); Neutrophils # 8.81 10^3/uL (1.8-7.7); Neutrophils % 70.2 %; Nucleated Red Blood Cells % 0 %; Platelet Count 317 10^3/cmm (130-400); Red Blood Count 4.61 10^6/uL (4.1-5.3); Red Cell Distribution Width 12.5 % (12.1-15.1); White Blood Count 12.6 10^3/uL (4.0-10.0)
[2021-02-15 06:18] LABS: INR 1.12 (0.8-1.2)
[2021-02-15 06:26] LABS: Anion Gap 15.3 (5-19); Blood Urea Nitrogen 9 mg/dL (8-23); Calcium 8.2 mg/dL (8.5-10.5); Carbon Dioxide 21 mmol/L (22-29); Chloride 107 mmol/L (98-107); Glucose 81 mg/dL (65-115); Osmolality Calculated 286 mOsm/kg (285-295); Potassium 4.3 mmol/L (3.5-5.1); Sodium 139 mmol/L (136-145)
--- NOTE | 2021-02-15 06:53 | P.ANESASSM_ITS ---
Pre-Anesthetic Assessment Pre-Anesthetic Assessment: Height/Weight: Height 1.85 m Weight 75.75 kg Temp Pulse Resp BP Pulse Ox 97.9 F 92 18 95/55 94 02/15/21 03:28 02/15/21 03:28 02/15/21 03:28 02/15/21 03:28 02/15/21 03:28 Preop Diagnosis: Tender left hemiscrotal mass Proposed Procedure: Operation Date: 02/15/21 08:[address] Biopsy(Not Applicable) - Angelica Patino DO Operation Date: 02/15/21 08:[address] Biopsy(Not Applicable) - DOCTOR NOT ON FILE Familial anesthetic complications: None Was Beta Jay taken within 24 h ours: N/A Was Clonidine taken within 24 hours: N/A Social: Social History: No alcohol and No tobacco Comment: Former smoker Exam: Pre-Anes Outpt Exam: alert, oriented x 3, clear to auscultation bilaterally and regular rate & rhythm Airway: Cervical ROM: WNL (limited) MP: 2 Dentition: False CV/HEM: CV/HEM: HTN Musc/skel: Musc/skel: OA/DJD Neuropsych: Neuropsych: Dementia Anesthetic Plan: ASA status: 3 Anesthesia: MAC Risk of > 500 ml blood loss (7ml/kg in children): No Meds/Allergies Current Medications: Current Medications Generic Name Dose Route Start Last Admin Trade Name Freq PRN Reason Stop Dose Admin Aspirin 81 mg 02/13/21 09:00 02/13/21 08:44 Aspirin 81 Mg Ec Tablet PO 81 mg DAILY FERNANDO Administration Enoxaparin Sodium 70 mg 02/13/21 21:00 02/14/21 09:02 Enoxaparin 80 Mg /0.8 Ml Syringe 1 mg/kg (90 mg) 70 mg SUBCUT Administration Q12H FERNANDO Ciprofloxacin/Dext gumaro 400 mg in 200 mls @ 200 mls/hr 02/13/21 02:00 02/15/21 04:56 Cipro IV 200 mls/hr Q12H FERNANDO Administration Protocol Vancomycin/PEG/NAD A/Lysine/Water 1,500 mg in 300 m ls @ 200 mls/hr 02/12/21 20:00 02/15/21 04:43 Vancocin IV Infused Q18H FERNANDO Infusion Tamsulosin HCl 0.4 mg 02/12/21 21:00 02/14/21 21:02 Tamsulosin 0.4 M g Capsule PO 0.4 mg BEDTIME FERNANDO Administration PFSH Anesthesia PFSH: Medical History (Updated 02/13/21 @ 14:39 by Dwight Baker MD) Dementia History of bladder cancer History of hydronephrosis Hypertension Surgical History (Updated 02/12/21 @ 17:03 by Dwight Baker MD) History of bladder surgery radical cystoprostatectomy with ileal neobladder performed at [facility] in 2003 History of open reduction and internal fixation (ORIF) procedure L tibia History of orchiectomy, unilateral Left, 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 Social History Smoking and tobacco status: former smoker Data Anesthesia CBC & Chem 7: 02/15/21 05:39 02/15/21 05:39 Other Labs: Laboratory Results - last 48 hr 02/14/21 02/14/21 02/14/21 06:55 06:55 06:55 WBC 10.5 H RBC 4.34 Hgb 12.2 Hct 37.5 L MCV 86.4 MCH 28.1 MCHC 32.5 RDW 12.4 Plt Count 311 MPV 9.8 Neut % (Auto) 65.8 Lymph % (Auto) 18.7 Calhoun % (Auto) 10.2 Eos % (Auto) 2.8 Baso % (Auto) 0.7 Neut # (Auto) 6.93 Lymph # (Auto) 2.0 Calhoun # (Auto) 1.1 H Eos # (Auto) 0.3 Baso # (Auto) 0.1 Nucleated RBC % (auto) 0 Nucleated RBCs # 0.0 PT INR Sodium 139 Potassium 3.8 Chloride 104 Carbon Dioxide 20 L Anion Gap 18.8 BUN 11 Creatinine 0.8 GFR Calculation Not Reportable Glucose 109 Calculated Osmolality 288 Calcium 7.9 L Vancomycin Trough 14.0 02/15/21 02/15/21 02/15/21 05:39 05:39 05:39 WBC 12.6 H RBC 4.61 Hgb 12.9 Hct 39.0 L MCV 84.6 MCH 28.0 MCHC 33.1 RDW 12.5 Plt Count 317 MPV 9.4 Neut % (Auto) 70.2 Lymph % (Auto) 17.0 Calhoun % (Auto) 8.0 Eos % (Auto) 2.6 Baso % (Auto) 0.6 Neut # (Auto) 8.81 H Lymph # (Auto) 2.1 Calhoun # (Auto) 1.0 H Eos # (Auto) 0.3 Baso # (Auto) 0.1 Nucleated RBC % (auto) 0 Nucleated RBCs # 0.0 PT 14.80 INR 1.12 Sodium 139 Potassium 4.3 Chloride 107 Carbon Dioxide 21 L Anion Gap 15.3 BUN 9 Creatinine 0.7 GFR Calculation Not Reportable Glucose 81 Calculated Osmolality 286 Calcium 8.2 L Vancomycin Trough Micro: Microbiology 02/12/21 13:00 Urine Culture - Final Urine,Clean Catch Cardiac Studies: Echocardiogram 02/14/21
[2021-02-15] MEDS: sodium chloride 0.9% 1,000 ML 30 ML IV (07:39)
--- NOTE | 2021-02-15 11:58 | PC.SOCIAL ---
IMM update IMM updated with patient. Copy Pg 2 provided. Initialled, dated, timed, and placed in chart.
[2021-02-15] MEDS: enoxaparin 80 mg/0.8 mL Syringe 70 MG SUBCUT (20:02)
[2021-02-15] MEDS: tamsulosin 0.4 mg Capsule PO (20:02)
--- NOTE | 2021-02-15 21:54 | PM.PN ---
Subjective Subjective: Interval history: Confused, uncovered in bed. Asking what he needs to be doing. Reassured and redirected. Covered him with blankets. Turned on his TV. Denies pain or discomfort. Vitals/I&O/Wt Last Vital Signs Temp 98.7 F 02/15/21 19:54 Pulse 88 02/15/21 19:54 Resp 20 H 02/15/21 19:54 BP 134/83 02/15/21 19:54 Pulse Ox 96 02/15/21 19:54 02/15/21 02/15/21 02/15/21 06:59 14:59 22:59 Intake Total 300 / 1000 900 / 900 200 / 1100 Output Total 480 / 830 Balance -180 / 170 900 / 900 200 / 1100 Weight last 48 hrs Weight 75.75 kg Weight 75.977 kg Physical Exam Const: COMMON NORMALS: no acute distress and alert; negative for patient oriented x3 GENERAL APPEARANCE: cooperative and anxious ORIENTATION/CONSCIOUSNESS: Yes awake and Yes confused OTHER: Pleasant, communicative, unable to provide history. HENMT: COMMON NORMALS: oropharynx normal Neck/C-Spine: COMMON NORMALS: no JVD Resp: COMMON NORMALS: normal respiratory effort and clear to auscultation bilaterally AUSCULTATION: clear to auscultation bilaterally Cardio: COMMON NORMALS: no JVD, regular rhythm, S1 normal heart sound present, S2 normal heart sound present and No murmurs present (Cardio) RHYTHM: regular rhythm HEART SOUNDS: S1 normal heart sound present and S2 normal heart sound present GI: COMMON NORMALS: Normal to inspection, nondistended, normoactive bowel sounds present, Soft to palpation and non-tender PALPATION: Yes Soft to palpation Extremity: COMMON NORMALS: no joint enlargement and no pedal edema Neuro: COMMON NORMALS: moves all extremities; negative for patient oriented x3 SENSORIUM/ORIENTATION: Yes alert Skin: COMMON NORMALS: no rashes or lesions noted GENERAL SKIN EXAM: no rashes or lesions noted Urinary Catheter Management^: Salvador: Cath Placed During This Visit: yes Reason for Continuing Indwelling Catheter: Acute Urinary Retention or Obstruction Urinary Catheter Date of Insertion: 02/12/21 Urinary Catheter Time of Insertion: 16:32 Data : 02/15/21 05:39 02/15/21 05:39 Micro: Microbiology 02/15/21 08:20 Gram Stain - Final Other Source A&P Assessment and plan (1) Psoas abscess, left: IR aspiration of left psoas abscess on 02/15. Rare WBCs. No organisms on Gram stain. Follow-up culture. Resumed aspirin, Lovenox. Continue Vanco and Cipro. Blood cultures so far negative. Status: Acute (2) Cystitis: Some improvement in leukocytosis. Noted with tachycardia. Unrevealing urine culture. Maintain Salvador catheter decompression. Status: Acute (3) Troponin level elevated: Without any chest pain. Echocardiogram unfortunately unrevealing. EKG was not suggestive of acute [place]. Doubt ACS, possibly some myocardial injury secondary to demand ischemia. Depending on goals of care, consideration may be given to stress testing. Status: Acute (4) Urinary retention: Maintain Salvador. Empirically treat possible cystitis. Started on Flomax. Follow-up with urology. Status: Acute (5) Hydronephrosis: Chronic hydronephrosis, with history of urinary bladder cancer, with bladder excision, neobladder creation. Status: Acute Additional A&P Information Dementia HTN Attestations Medical Necessity Statement*: Continue assessment and management of left psoas abscess, optimization of antibiotic therapy and disposition planning. Coding Level of Care Code Acute [employer] for Ivonne Bingham Diagnoses Psoas abscess, left K68.12 Cystitis N30.90 Troponin level elevated R77.8 Urinary retention R33.9 Hydronephrosis N13.30
[2021-02-16 04:02] VITALS: BP 123/76; PULSE 79; RESP 20; TEMP 36.3; O2SAT 97
[2021-02-16 05:11] VITALS: BMI 22.0
[2021-02-16] MEDS: ciprofloxacin 400 MG/200 ML PREMIX 200 MG IV (05:49)
[2021-02-16 05:57] LABS: Basophils # 0.1 10^3/uL (0.0-0.1); Basophils % 0.4 %; Eosinophils # 0.3 10^3/uL (0.0-0.8); Eosinophils % 2.4 %; Hematocrit 38.6 % (42.0-52.0); Lymphocytes # 1.7 10^3/uL (0.8-4.8); Lymphocytes % 14.8 %; Mean Corpuscular HGB Conc 33.7 g/dL (30.0-36.0); Mean Corpuscular Hemoglobin 28.8 pg (28.0-34.0); Mean Corpuscular Volume 85.6 fl (80-94); Mean Platelet Volume 9.2 fL (7.4-10.4); Monocytes # 0.9 10^3/uL (0.2-0.9); Neutrophils # 8.45 10^3/uL (1.8-7.7); Nucleated Red Blood Cells % 0 %; Platelet Count 292 10^3/cmm (130-400); Red Blood Count 4.51 10^6/uL (4.1-5.3); Red Cell Distribution Width 12.7 % (12.1-15.1); White Blood Count 11.6 10^3/uL (4.0-10.0)
[2021-02-16 06:18] LABS: Blood Urea Nitrogen 9 mg/dL (8-23); Carbon Dioxide 19 mmol/L (22-29); Chloride 105 mmol/L (98-107); Glucose 86 mg/dL (65-115); Osmolality Calculated 280 mOsm/kg (285-295); Sodium 136 mmol/L (136-145)
[2021-02-16 08:00] VITALS: BP 124/80; PULSE 80; RESP 18; TEMP 36.5; O2SAT 98
[2021-02-16] MEDS: enoxaparin 80 mg/0.8 mL Syringe 70 MG SUBCUT (08:56)
[2021-02-16] MEDS: aspirin 81 mg EC Tablet PO (08:56)
[2021-02-16 12:00] VITALS: BP 125/82; PULSE 80; RESP 17; TEMP 36.6; O2SAT 98
--- NOTE | 2021-02-16 13:31 | PM.DCS ---
Discharge Providers Date of Admission: 02/12/21 14:48 Date of Discharge: February 16, 2021 Attending Provider at Admission: Dwight Baker Attending Provider at Discharge: Dwight Baker Diagnoses at Discharge Discharge Diagnosis (1) Psoas abscess, left: Status: Acute (2) Cystitis: Status: Acute (3) Troponin level elevated: Status: Acute (4) Urinary retention: Status: Acute (5) Hydronephrosis: Status: Acute Reason for Visit Reason for Visit: L ARM PAIN, VOMIT X 2 Hospital Course Hospital Course Pleasant 80-year-old gentleman longterm resident with advanced dementia, history of urinary bladder cancer, radical cystoprostatectomy, ileal neobladder creation, admitted and treated for sepsis 01/17-01/20, with possible diverticular abscess on imaging, treated with IV antibiotics at that time, discharged with additional 5 days of Levaquin, was brought in from longterm due to vomiting, lower abdominal pressure, with finding of leukocytosis 16.1, lactic acidosis 2.6, afebrile, without cardiac. Urine with 5-10 RBC, too numerous to count WBCs. CT abdomen pelvis showed small abscess, 3.8 x 2.9 cm and a left psoas muscle, decreased in size since 01/17, with less adjacent inflammation and decrease in size of the inflammatory changes. Chronic known bilateral hydronephrosis noted with severe right hydronephrosis. Urinary bladder was decompressed with Salvador catheter, 600 mL of cloudy urine drained. Urine cultures obtained. Discussed with urology, and will be following up in clinic subsequently. Urine cultures without growth. Due to urinary retention Salvador catheter is maintained in place until follow-up. He is started on tamsulosin. He underwent CT-guided aspiration of the psoas abscess on 02/15 with small amount of bloody aspirate retrieved and sent for culture and sensitivity. Rare WBCs noted. No organisms so far. Please follow-up final results. She has been doing well, with no symptoms of abdominal pain or discomfort anymore, tolerating oral intake. With nausea vomiting, no discomfort resolved. Remains afebrile, with improvement in leukocytosis. He will complete antibiotic course with Cipro and Flagyl. Due to concern of possible complicated diverticular disease/diverticular abscess during prior admission he is referred for follow-up with surgery. As per discussion with his granddaughter troponin level noted elevated on presentation, 77-89.75. He has remained asymptomatic while in the hospital. Echocardiogram unsuccessful with no echocardiographic windows. Discussed possible demand ischemia, but possibility of underlying cardiac pathology, possibly coronary disease, however, request is not to pursue additional assessment including stress testing or referral to cardiology so as not to cause additional discomfort given advanced dementia, and especially since he is asymptomatic. Physical Exam Const: COMMON NORMALS: no acute distress and alert; negative for patient oriented x3 GENERAL APPEARANCE: cooperative, comfortable and anxious ORIENTATION/CONSCIOUSNESS: Yes awake and Yes confused OTHER: Pleasant, communicative, unable to provide history. HENMT: COMMON NORMALS: oropharynx normal Neck/C-Spine: COMMON NORMALS: no JVD Resp: COMMON NORMALS: normal respiratory effort and clear to auscultation bilaterally AUSCULTATION: clear to auscultation bilaterally Cardio: COMMON NORMALS: no JVD, regular rhythm, S1 normal heart sound present, S2 normal heart sound present and No murmurs present (Cardio) RHYTHM: regular rhythm HEART SOUNDS: S1 normal heart sound present and S2 normal heart sound present GI: COMMON NORMALS: Normal to inspection, nondistended, normoactive bowel sounds present, Soft to palpation and non-tender PALPATION: Yes Soft to palpation and Yes Tenderness to palpation present (GI) (Mildly tender L side) Extremity: COMMON NORMALS: no joint enlargement and no pedal edema Neuro: COMMON NORMALS: moves all extremities; negative for patient oriented x3 SENSORIUM/ORIENTATION: Yes alert Skin: COMMON NORMALS: no rashes or lesions noted GENERAL SKIN EXAM: no rashes or lesions noted Urinary Catheter Management^: Salvador: Cath Placed During This Visit: yes Reason for Continuing Indwelling Catheter: Acute Urinary Retention or Obstruction Urinary Catheter Date of Insertion: 02/12/21 Urinary Catheter Time of Insertion: 16:32 Discharge Data Data Completed and Pending: Completed Studies During Hospitalization Category Date Time Status CT abdomen pelvis w con* [id number] Stat Cat Scan 02/12/21 11:[address] [place] [id number] Routine Cat Scan 02/15/21 Completed XR chest 1V luis f ble [id number] Stat Exams 02/12/21 11:07 Completed CV. echo complete * [id number] Routine Ultrasound 02/14/21 20:17 Completed Pending at discharge Category Date Time Status Abscess Culture a nd Gram Stain Rout ine Lab 02/15/21 08:20 Results Basic Metabolic P naomy AM LABS Lab 02/17/21 04:00 Ordered Blood Culture Sta t Lab 02/12/21 18:50 Results Complete Blood Co unt w/Auto AM LABS Lab 02/17/21 04:00 Ordered Labs from last 24 hours 02/16/21 02/16/21 05:42 05:42 WBC 11.6 H RBC 4.51 Hgb 13.0 Hct 38.6 L MCV 85.6 MCH 28.8 MCHC 33.7 RDW 12.7 Plt Count 292 MPV 9.2 Neut % (Auto) 73.0 Lymph % (Auto) 14.8 [place] % (Auto) 8.0 Eos % (Auto) 2.4 Baso % (Auto) 0.4 Neut # (Auto) 8.45 H Lymph # (Auto) 1.7 [place] # (Auto) 0.9 Eos # (Auto) 0.3 Baso # (Auto) 0.1 Nucleated RBC % (a uto) 0 Nucleated RBCs # 0.0 Sodium 136 Potassium 4.0 Chloride 105 Carbon Dioxide 19 L Anion Gap 16.0 BUN 9 Creatinine 0.7 GFR Calculation Not Reportable Glucose 86 Calculated Osmolal ity 280 L Calcium 8.0 L Vitals: Last Vital Signs Temp 97.7 F 02/16/21 08:00 Pulse 80 02/16/21 08:00 Resp 18 02/16/21 08:00 BP 124/80 02/16/21 08:00 Pulse Ox 98 02/16/21 08:00 Discharge Plan Discharge Patient Disposition: Xfer SNF Condition: Stable Prescriptions: New tamsulosin 0.4 mg Capsule 0.4 mg PO BEDTIME Qty: 30 RF: 0 ciprofloxacin HCl 500 mg tablet 500 mg PO BID Qty: 12 RF: 0 atorvastatin [Lipitor] 40 mg tablet 40 mg PO QPM Qty: 30 RF: 0 metronidazole [Flagyl] 500 mg tablet 500 mg PO Q8H 7 Days Qty: 21 RF: 0 Continued acetaminophen 325 mg Tablet 650 mg PO Q6H PRN (Reason: Pain) RF: 0 trazodone 50 mg Tablet 50 mg PO BEDTIME@19 RF: 0 donepezil 10 mg Tablet 10 mg PO BEDTIME@19 RF: 0 furosemide [Lasix] 20 mg Tablet 20 mg PO DAILY@ RF: 0 memantine 10 mg Tablet 10 mg PO BID@ RF: 0 metoprolol tartrate 25 mg Tablet 12.5 mg PO BID@ RF: 0 Tylenol 325 mg Tablet 650 mg PO BEDTIME RF: 0 loperamide 2 mg Tablet 2 - 4 mg PO Q6H PRN (Reason: Diarrhea) RF: 0 Augmentin 500-125 mg Tablet 1 tab PO BID RF: 0 potassium chloride [Klor-Con 10] 10 mEq Tablet Extended Release 10 meq PO DAILY@ RF: 0 aspirin 81 mg Tablet,Delayed Release (Dr/Ec) 81 mg PO DAILY@07 RF: 0 magnesium hydroxide [Milk of Magnesia] 400 mg/5 mL Suspension 30 ml PO DAILY PRN (Reason: Constipation) RF: 0 Discharge Orders: Discharge Order (Routine); Ordered 02/16/21 Ordered By: Dwight Baker Referrals: Keanu Cannon MD [Physician] - 1 week (retention, hydronephrosis) Trung Oliver MD [Physician] - 2 weeks (Psoas abscess, possible complicated diverticular abscess in January) Discharge Diet: Regular Discharge Activity: Resume usual activity Patient Instructions: Opioid Safety Activity Restrictions/Additional Instructions: Please maintain Salvador catheter in place for decompression due to urinary retention until follow-up with urology. Consider follow-up CT imaging of abdomen pelvis to confirm resolution of left psoas abscess or any other intra-abdominal pathology. Please follow-up with surgery. Consideration of colonoscopy as per request of granddaughter who is DPOA to depend on his condition at the time. Discharge Attestations Time Spent in Discharge Care*: greater than 30 min Status at Discharge: Cognitive status at discharge: moderately impaired cognition, Behavioral status at discharge: cooperative, Quality Metrics Clinical Quality Measures During this hospital stay, did patient experience: None Coding Level of Care Code Acute Chg FW DC note Diagnoses Psoas abscess, left K68.12 Cystitis N30.90 Troponin level elevated R77.8 Urinary retention R33.9 Hydronephrosis N13.30
--- NOTE | 2021-02-16 15:27 | PC.NURSE ---
report called to Noreen at [facility].
[2021-02-16 16:00] VITALS: BP 114/70; PULSE 74; RESP 17; TEMP 36.7; O2SAT 98
[2021-02-16 18:30] VITALS: BP 114/70; PULSE 74; RESP 17; TEMP 36.7; O2SAT 98
== END 2021-02-16 18:00 | disposition skilled nursing facility (03) | DRG 372 ==
LOC: ER 15:01 → MEDSURG 15:33
PROVIDERS: Radiology Diagnostic Radiology; Admitting Provider Internal Medicine; Emergency Provider Family Medicine; Visit Provider Internal Medicine
PROC: 0K9P3ZZ Drainage of Left Hip Muscle, Percutaneous Approach (ICD-10-PCS; principal; 2021-02-15 08:00)
DX: K68.12 Psoas muscle abscess (principal); N13.30 Unspecified hydronephrosis; N30.90 Cystitis, unspecified without hematuria; R77.8 Other specified abnormalities of plasma proteins; R33.9 Retention of urine, unspecified; R00.0 Tachycardia, unspecified; F03.90 Unspecified dementia, unspecified severity, without behavioral disturbance, psychotic disturbance, mood disturbance, and anxiety; K57.30 Diverticulosis of large intestine without perforation or abscess without bleeding; I10 Essential (primary) hypertension; Z85.51 Personal history of malignant neoplasm of bladder; Z90.79 Acquired absence of other genital organ(s); Z90.6 Acquired absence of other parts of urinary tract; Z87.891 Personal history of nicotine dependence; Z79.82 Long term (current) use of aspirin
CPT/HCPCS: 10160; 36415; 51702; 71045; 74177; 77012; 80048; 80053; 80202; 81001; 82550; 83605; 84484; 85025; 85610; 87040; 87070; 87075; 87086; 87205; 93005; 93306; 96365; 96372; 99285; J0744; J1650; J2704; J3010; J3370; J7030; Q9967